=== PATIENT | female | born 1985 | race Caucasian/White ===

== ENCOUNTER 2018-01-22 20:28 | Inpatient (IN) | payer BC, SELFPAY ==
[2018-01-22] MEDS: NS 1,000 ML IV (21:34)
[2018-01-22] MEDS: ONDANSETRON 4MG/2ML VIAL (J2405) IV (21:34)
[2018-01-22 21:37] LABS: HEMATOCRIT 41.9 % (36.0-47.0); HEMOGLOBIN 14.7 g/dl (12.0-15.5); MEAN CORPUSCULAR HEMOGLOBIN 31.3 pg (27.0-33.0); MEAN CORPUSCULAR HGB CONC 35.1 g/dl (32.0-36.5); MEAN CORPUSCULAR VOLUME 89.1 fl (80.0-96.0); PLATELET COUNT, AUTOMATED 309 10^3/uL (150-450); RED CELL DISTRIBUTION WIDTH 11.9 % (11.5-14.5)
[2018-01-22 21:38] LABS: ADD MANUAL DIFFER YES; DIFF SLIDE NUMBER 356; POSITIVE DIFF POS FLAG; WHITE BLOOD COUNT 11.1 10^3/uL (4.0-10.0)
[2018-01-22 21:55] LABS: BANDS 1 % (< 11); BASOPHILS 1 % (0-4); EOSINOPHILS 3 % (0-5); LYMPHOCYTES 50 % (16-52); MONOCYTES 3 % (0-8); NEUTROPHILS 42 % (35-75); PLATELET ESTIMATE NORMAL (NORMAL)
[2018-01-22 22:05] LABS: ALBUMIN 3.8 GM/DL (3.2-5.2); ALBUMIN/GLOBULIN RATIO 1.23 (1.00-1.93); ALKALINE PHOSPHATASE 72 U/L (45-117); ALT/SGPT 42 U/L (12-78); ANION GAP 8 MEQ/L (8-16); AST/SGOT 33 U/L (7-37); BILIRUBIN,DIRECT < 0.1 MG/DL (0.0-0.2); BILIRUBIN,TOTAL 0.5 MG/DL (0.2-1.0); BLOOD UREA NITROGEN 15 MG/DL (7-18); CALCIUM LEVEL 8.8 MG/DL (8.5-10.1); CARBON DIOXIDE LEVEL 29 MEQ/L (21-32); CHLORIDE LEVEL 104 MEQ/L (98-107); CPK CREATINE PHOSPHOKINASE 87 U/L (26-192); GLOMERULAR FILTRATION RATE > 60.0 (>60); GLUCOSE, FASTING 96 MG/DL (70-100); LIPASE 250 U/L (73-393); POTASSIUM SERUM 4.7 MEQ/L (3.5-5.1); SODIUM LEVEL 141 MEQ/L (136-145); TOTAL PROTEIN 6.9 GM/DL (6.4-8.2); TROPONIN I < 0.02 NG/ML (< 0.10)
[2018-01-22 22:11] LABS: CK-MB VALUE MASS < 1.0 NG/ML (<3.6); HCG, SERUM QUANTITATIVE < 1.0 MIU/ML; MB/CK RELATIVE INDEX 1.14 (< OR =4)
[2018-01-22] MEDS: KETOROLAC 30 MG/ML VIAL (J1885) IV (23:32)
[2018-01-23] MEDS ORDERED: BISACODYL 10 MG SUPP PR (01:15)
[2018-01-23] MEDS ORDERED: ONDANSETRON 4MG/2ML VIAL (J2405) IV (01:15)
[2018-01-23] MEDS ORDERED: diphenhydrAMINE INJ 50MG/ML VIAL (J1200) IV (01:15)
[2018-01-23] MEDS ORDERED: IBUPROFEN 800 MG TAB PO (01:15)
[2018-01-23] MEDS ORDERED: METOCLOPRAMIDE INJ 10MG/2ML VIAL (J2765) IV (01:15)
[2018-01-23] MEDS: NS 1,000 ML IV ×2 (01:20→12:41)
[2018-01-23] MEDS: ACETAMINOPHEN TAB 650MG DOSE (2X325MG) PO (02:43)
[2018-01-23 08:24] LABS: HEMATOCRIT 38.6 % (36.0-47.0); HEMOGLOBIN 13.3 g/dl (12.0-15.5); MEAN CORPUSCULAR HEMOGLOBIN 30.6 pg (27.0-33.0); MEAN CORPUSCULAR HGB CONC 34.5 g/dl (32.0-36.5); MEAN CORPUSCULAR VOLUME 88.9 fl (80.0-96.0); PLATELET COUNT, AUTOMATED 281 10^3/uL (150-450); RED BLOOD COUNT 4.34 10^6/uL (4.00-5.40); RED CELL DISTRIBUTION WIDTH 11.9 % (11.5-14.5); WHITE BLOOD COUNT 7.6 10^3/uL (4.0-10.0)
[2018-01-23] MEDS: KETOROLAC 30 MG/ML VIAL (J1885) IV ×2 (08:39→15:29)
[2018-01-23 08:42] LABS: ANION GAP 7 MEQ/L (8-16); BLOOD UREA NITROGEN 14 MG/DL (7-18); CALCIUM LEVEL 8.4 MG/DL (8.5-10.1); CARBON DIOXIDE LEVEL 29 MEQ/L (21-32); CHLORIDE LEVEL 109 MEQ/L (98-107); CREATININE FOR GFR 0.77 MG/DL (0.55-1.30); GLOMERULAR FILTRATION RATE > 60.0 (>60); GLUCOSE, FASTING 84 MG/DL (70-100); POTASSIUM SERUM 4.5 MEQ/L (3.5-5.1); SODIUM LEVEL 145 MEQ/L (136-145)
[2018-01-23] MEDS: methylPREDNISolone INJ 40 MG/1 ML VIAL (J2920) IV (09:44)
[2018-01-23] MEDS: ENOXAPARIN 40 MG/0.4 ML SYRINGE (J1650) SC (09:44)
[2018-01-23] MEDS: DOXYCYCLINE HYCLATE 100 MG TAB PO (09:44)
[2018-01-23] MEDS: TOPIRAMATE (TopAMAX) 25 MG TAB PO ×2 (13:45→21:24)
[2018-01-23] MEDS: FIORICET TAB PO (15:30)
[2018-01-23] MEDS ORDERED: SUMAtriptan SUCCINATE 25 MG TAB PO (19:30)
[2018-01-23] MEDS ORDERED: TOPIRAMATE (TopAMAX) 25 MG TAB PO (21:00)
[2018-01-23] MEDS: raNITIdine SYRUP 150 MG/10 ML UDC PO (22:58)
[2018-01-24] MEDS: KETOROLAC 30 MG/ML VIAL (J1885) IV ×3 (00:17→16:46)
[2018-01-24] MEDS: NS 1,000 ML IV ×2 (02:42→16:46)
[2018-01-24 07:56] LABS: HEMATOCRIT 38.3 % (36.0-47.0); HEMOGLOBIN 13.2 g/dl (12.0-15.5); MEAN CORPUSCULAR HEMOGLOBIN 30.6 pg (27.0-33.0); MEAN CORPUSCULAR HGB CONC 34.5 g/dl (32.0-36.5); MEAN CORPUSCULAR VOLUME 88.9 fl (80.0-96.0); PLATELET COUNT, AUTOMATED 284 10^3/uL (150-450); RED BLOOD COUNT 4.31 10^6/uL (4.00-5.40); RED CELL DISTRIBUTION WIDTH 11.9 % (11.5-14.5); WHITE BLOOD COUNT 17.6 10^3/uL (4.0-10.0)
[2018-01-24 08:21] LABS: ANION GAP 8 MEQ/L (8-16); BLOOD UREA NITROGEN 10 MG/DL (7-18); CALCIUM LEVEL 8.2 MG/DL (8.5-10.1); CARBON DIOXIDE LEVEL 24 MEQ/L (21-32); CHLORIDE LEVEL 112 MEQ/L (98-107); CREATININE FOR GFR 0.73 MG/DL (0.55-1.30); GLOMERULAR FILTRATION RATE > 60.0 (>60); GLUCOSE, FASTING 101 MG/DL (70-100); POTASSIUM SERUM 3.8 MEQ/L (3.5-5.1); SODIUM LEVEL 144 MEQ/L (136-145)
[2018-01-24] MEDS: raNITIdine SYRUP 150 MG/10 ML UDC PO ×2 (08:26→21:41)
[2018-01-24] MEDS: TOPIRAMATE (TopAMAX) 25 MG TAB PO ×2 (08:27→21:42)
[2018-01-24] MEDS: methylPREDNISolone INJ 40 MG/1 ML VIAL (J2920) IV (08:28)
[2018-01-24] MEDS: ENOXAPARIN 40 MG/0.4 ML SYRINGE (J1650) SC (08:28)
[2018-01-24] MEDS: IPRATROPIUM 0.5MG/ALBUTEROL 2.5MG INH SOL UD 3ML (DUONEB)(J7620) NEB ×2 (09:07→21:05)
[2018-01-24] MEDS: FIORICET TAB PO (16:52)
[2018-01-25] MEDS: KETOROLAC 30 MG/ML VIAL (J1885) IV ×2 (00:28→08:16)
[2018-01-25] MEDS: NS 1,000 ML IV (05:37)
[2018-01-25 08:44] LABS: HEMATOCRIT 37.3 % (36.0-47.0); HEMOGLOBIN 12.7 g/dl (12.0-15.5); PLATELET COUNT, AUTOMATED 264 10^3/uL (150-450); RED CELL DISTRIBUTION WIDTH 12.3 % (11.5-14.5); WHITE BLOOD COUNT 14.9 10^3/uL (4.0-10.0)
[2018-01-25 09:09] LABS: ANION GAP 9 MEQ/L (8-16); BLOOD UREA NITROGEN 15 MG/DL (7-18); C REACTIVE PROTEIN QUANTITATIV < 0.30 MG/DL (0.00-0.30); CALCIUM LEVEL 8.2 MG/DL (8.5-10.1); CARBON DIOXIDE LEVEL 23 MEQ/L (21-32); CHLORIDE LEVEL 114 MEQ/L (98-107); CREATININE FOR GFR 0.71 MG/DL (0.55-1.30); GLOMERULAR FILTRATION RATE > 60.0 (>60); GLUCOSE, FASTING 70 MG/DL (70-100); POTASSIUM SERUM 3.8 MEQ/L (3.5-5.1); SODIUM LEVEL 146 MEQ/L (136-145)
[2018-01-25] MEDS: methylPREDNISolone INJ 40 MG/1 ML VIAL (J2920) IV (09:56)
[2018-01-25] MEDS: TOPIRAMATE (TopAMAX) 25 MG TAB PO (09:57)
[2018-01-25] MEDS: ENOXAPARIN 40 MG/0.4 ML SYRINGE (J1650) SC (09:57)
[2018-01-25] MEDS: raNITIdine SYRUP 150 MG/10 ML UDC PO (09:58)
[2018-01-25] MEDS: IPRATROPIUM 0.5MG/ALBUTEROL 2.5MG INH SOL UD 3ML (DUONEB)(J7620) NEB (11:49)
[2018-01-26 00:06] LABS: Lyme Disease IgG/IgM Antibodie <0.91 ISR (0.00-0.90); Lyme Disease IgM Ab Quantitati <0.80 index (0.00-0.79)
== END 2018-01-25 16:00 | disposition home or self-care (01) | DRG 111 ==
LOC: M ED INP 20:29 → M PED 01-23 01:53 → M ED 20:28
DX: H81.20 Vestibular neuronitis, unspecified ear (principal); R10.32 Left lower quadrant pain; G43.111 Migraine with aura, intractable, with status migrainosus; Z88.0 Allergy status to penicillin; Z88.2 Allergy status to sulfonamides; Z88.1 Allergy status to other antibiotic agents; Z88.8 Allergy status to other drugs, medicaments and biological substances

== ENCOUNTER → 2020-01-21 | Outpatient (REF) | payer OTHER, BC ==
[~2020-01-21] MED LIST: ACET65TA OR; ALLE25CA OR; AVEL1TAB2 OR; DOXY-350 PO; DOXY100C PO; EPIP0.3I IM; EPIP0.3I2 INJ; FISH1000 PO; IBUP1TAB7 PO; IBUPOTC PO; MIRE1IUD IU; MIREIUD IU; PRED10TA2 PO; PRED20TA OR; PROT1TAB2 OR; SUMA25TA3 PO; TOPA1TAB PO; VIST25CA OR; XANA0.5T OR
== END ==
LOC: M LAB REF 13:00
PROVIDERS: ATTEND Specialist
DX: Z12.4 Encounter for screening for malignant neoplasm of cervix (principal)

== ENCOUNTER → 2020-02-05 | Outpatient (CLI) | payer BC, OTHER ==
--- NOTE | 2020-02-05 08:08 | REPVR ---
PROCEDURE INFORMATION: Exam: CT Maxillofacial Without Contrast, Sinus Exam date and time: 02/05/2020 7:49 AM Age: 35 years old Clinical indication: Sinusitis; Type not specified; Additional info: Chronic maxillary sinusitis TECHNIQUE: Imaging protocol: CT Maxillofacial without contrast. Focus on the sinuses. Radiation optimization: All CT scans at this facility use at least one of these dose optimization techniques: automated exposure control; mA and/or kV adjustment per patient size (includes targeted exams where dose is matched to clinical indication); or iterative reconstruction. COMPARISON: No relevant prior studies available. FINDINGS: Frontal sinuses: Normal. No air-fluid levels. Ethmoid air cells: Normal. No air-fluid levels. Sphenoid sinuses: Normal. No air-fluid levels. Maxillary sinuses: Normal. No air-fluid levels. Ostiomeatal units are patent. Orbits: Orbits are normal. Globes are unremarkable. Nasal cavity/Septum: Unremarkable. Soft tissues: Unremarkable. Bones/joints: Unremarkable. IMPRESSION: Unremarkable sinuses. Electronically signed by: Benji Infante On 02/05/2020 08:08:06 AM
== END ==
LOC: M RAD 07:40
PROVIDERS: ATTEND Otolaryngology
DX: J32.0 Chronic maxillary sinusitis (principal)

== ENCOUNTER 2020-07-03 17:51 | Emergency (ER) | payer BC, OTHER ==
[~2020-07-03] VITALS: Ht 167.6 cm; Wt 89.9 kg
--- OUTSIDE RECORDS SUMMARY | 2020-07-03 17:59 | CCD ---
Author Author [facility] Organization [facility] Address Unknown Phone Unavailable Care Team Providers [facility] [place] [facility] Name Role Phone [facility] [place] Unavailable PROBLEMS Type Condition ICD9-CM Code MBR40-VO Code Onset Dates Condition S tatus SNOMED Code Notes Problem Unspecified sinusitis (chronic) 473.9 Active 37057715 Problem Tobacco use disorder 305.1 Active 373875383 Problem Shortness of breath 786.05 Active 521209055 Problem Cervicalgia 723.1 Active 57689844 Problem Pain in joint, lower leg 719.46 Active 0897478 03 Problem Esophageal reflux 530.81 Active 836106371 ALLERGIES Allergen (clinical drug ingredient) Drug/Non Drug Allergy do cumented on EMR Reaction Allergy Type Onset Date Status cefaclor Cefaclor(NDC Code:[address]-19) Hives Drug Allergy Active Shellfish Anaphylaxis Non Drug Allergy Active amoxicillin Amoxicillin(NDC Code:[address]-75) Hives Drug Aller gy Active IVP dye Anaphylaxis Non Drug Allergy Active Sulfa Hives Non Drug Allergy Active moxifloxacin Avelox Anaphylaxis Drug Allergy Active Penicillin (For Allergies Use Only) Hives Drug Allerg y Active erythromycin Erythromycin(NDC Code:[address]-00) Hives Drug All ergy Active ENCOUNTERS from 1983 to 2020-06-23 Encounter Location Date Provider Diagnosis [facility] [address] [place] [address] Jun, [facility] [place] Encounter for IUD re moval Z30.432 IMMUNIZATIONS Vaccine Route Administration Date Status Influenza (6mo & up) Fluzone Unknown Apr 05, 2012 Adm inistered SOCIAL HISTORY Tobacco Use: Social History Observation Description Date Details (start date - stop date) Never Smoker Sex Assigned At : Social History Observation Description Sex Assigned At Unknown Alcohol Screening: Question Answer Notes Did you have a drink containing alcohol in the past year? Ye s Points 2 Interpretation Negative How often did you have six or more drinks on one occas ion in the past year? Never (0 points) How many drinks did you have on a typica l day when you were drinking in the past year? 1 or 2 (0 points) How often did you have a drink containing alcohol in t he past year? Two to four times a month (2 points) Tobacco Use: Question Answer Notes Are you a: never smoker REASON FOR REFERRAL No Information VITAL SIGNS Weight 189 lbs Jun, Height 67 in Jun, BMI 29.6 kg/m2 Jun, Blood pressure systolic 130 mm Hg Jun, Blood pressure diastolic 80 mm Hg Jun, MEDICATIONS Medication SIG (Take, Route, Frequency, Duration) Notes Start Da te End Date Status Chantix Starting Month Milton 0.5 MG X 11 & 1 MG X 42 1 t ab(s) Orally as directed for 30 day(s) Dec, Not-Taking Solaraze 3 % 1 application to affected ar ea Externally Twice a day for 90 day(s) Jan, Not-Taking Astelin 137 MCG/SPRAY 1 puff in each nostril Nasally Twice a day for 10 day(s) Dec, Not-Taking Mirena (52 MG) 20 MCG/24HR as directed Intrauterine Active Knee Brace Dx 719.46 as directed na as needed for 30 day(s) Jan, Not-Taking Zantac 150 Maximum Strength 150 MG 1 tablet Orally Twice a day f or 30 day(s) Dec, Not-Taking Alive Once Daily Womens 50+ as directed Orally Active Protonix 40 MG 1 tablet Orally Once a day for 30 day(s) Jan, Active Ventolin HFA 90 MCG/ACT 2 puffs as needed Inhalation every 4 hrs for 30 day(s) Dec, Not-Taking Mirena 20 MCG/24HR as directed Intrauterine Not-Taking Tessalon Perles 100 mg 1 capsule as needed Orally T hree times a day for 15 day(s) Dec, Not-Taking Nasacort AQ 55 MCG/ACT 1 puff in each nostril Nasally Once a day for 30 day(s) Dec, Not-Taking EpiPen 2-Milton 0.3 MG/0.3ML as directed Injection Active Macrobid 100 MG 1 capsule Orally twice a day for 7 day(s) Jun, Active PROCEDURES No Information RESULTS No Results REASON FOR VISIT IUD REMOVAL ONLY MEDICAL (GENERAL) HISTORY Type Description Date Medical History Chronic sinusitis Medical History GERD x 3 yrs, taking protonix since 01/03 011 Medical History endometriosis Surgical History endometriosis (Laparascopy by Dr. Vazquez) 02/2010 Surgical History LEEP of cervix 2003 Hospitalization History anaphylaxis 07/31/2011 Goals Section No Information Health Concerns No Information MEDICAL EQUIPMENT No Information MENTAL STATUS No Information FUNCTIONAL STATUS No Information ASSESSMENTS Encounter Date Diagnosis Assessment Notes Treatment Notes Treatm ent Clinical Notes Jun, Encounter for IUD removal (ICD-10 - Z30.432) PLAN OF TREATMENT Medication Medication Name Sig Start Date Stop Date Macrobid 100 MG 1 capsule Orally twice a day for 7 day(s) Jun Insurance Providers Payer Name Payer Address Payer Phone Insured Name Patient Relati onship to Insured Coverage Start Date Coverage End Date [facility] [address] [facility] [id number] AISHA PAYNE
--- OUTSIDE RECORDS SUMMARY | 2020-07-03 17:59 | CCD ---
Author Author [facility] Organization [facility] Address Unknown Phone Unavailable Care Team Providers Care Registered Dental Assistant Name Role Phone Estrellita ELLISON Unavailable Unavailable Aravind MÉNDEZ Unavailable Unavailable MALLORIE ARAUJO MD Unavailable Unavailable MALLORIE ARAUJO MD Unavailable Unavailable MALLORIE ARAUJO MD Unavailable Unavailable MALLORIE ARAUJO MD Unavailable Unavailable MALLORIE ARAUJO MD Unavailable Unavailable MALLORIE ARAUJO MD Unavailable Unavailable MALLORIE ARAUJO MD Unavailable Unavailable VAN, MAQBOOL EDGAR MD Unavailable Unavailable VAN, MAQBOOL EDGAR MD Unavailable Unavailable VAN, MAQBOOL EDGAR MD Unavailable Unavailable VAN, MAQBOOL EDGAR MD Unavailable Unavailable VAN, MAQBOOL EDGAR MD Unavailable Unavailable VAN, MAQBOOL EDGAR MD Unavailable Unavailable VAN, MAQBOOL EDGAR MD Unavailable Unavailable VAN, MAQBOOL EDGAR MD Unavailable Unavailable VAN, MAQBOOL EDGAR MD Unavailable Unavailable VAN, MAQBOOL EDGAR MD Unavailable Unavailable VAN, MAQBOOL EDGAR MD Unavailable Unavailable VAN, MAQBOOL EDGAR MD Unavailable Unavailable VAN, MAQBOOL EDGAR MD Unavailable Unavailable VAN, MAQBOOL EDGAR MD Unavailable Unavailable VAN, MAQBOOL EDGAR MD Unavailable Unavailable VAN, MAQBOOL EDGAR MD Unavailable Unavailable VAN, MAQBOOL EDGAR MD Unavailable Unavailable VAN, MAQBOOL EDGAR MD Unavailable Unavailable VAN, MAQBOOL EDGAR MD Unavailable Unavailable VAN, MAQBOOL EDGAR MD Unavailable Unavailable VAN, MAQBOOL EDGAR MD Unavailable Unavailable VAN, MAQBOOL EDGAR MD Unavailable Unavailable VAN, MAQBOOL EDGAR MD Unavailable Unavailable VAN, MAQBOOL EDGAR MD Unavailable Unavailable VAN, MAQBOOL EDGAR MD Unavailable Unavailable VAN, MAQBOOL EDGAR MD Unavailable Unavailable VAN, MAQBOOL EDGAR MD Unavailable Unavailable VAN, MAQBOOL EDGAR MD Unavailable Unavailable VAN, MAQBOOL EDGAR MD Unavailable Unavailable VAN, MAQBOOL EDGAR MD Unavailable Unavailable VAN, MAQBOOL EDGAR MD Unavailable Unavailable VAN, MAQBOOL EDGAR MD Unavailable Unavailable VAN, MAQBOOL EDGAR MD Unavailable Unavailable VAN, MAQBOOL EDGAR MD Unavailable Unavailable VAN, MAQBOOL EDGAR MD Unavailable Unavailable VAN, MAQBOOL EDGAR MD Unavailable Unavailable VAN, MAQBOOL EDGAR MD Unavailable Unavailable VAN, MAQBOOL EDGAR MD Unavailable Unavailable VAN, MAQBOOL EDGAR MD Unavailable Unavailable VAN, MAQBOOL EDGAR MD Unavailable Unavailable VAN, MAQBOOL EDGAR MD Unavailable Unavailable VAN, MAQBOOL EDGAR MD Unavailable Unavailable VAN, MAQBOOL EDGAR MD Unavailable Unavailable VAN, MAQBOOL EDGAR MD Unavailable Unavailable VNA, MAQBOOL EDGAR MD Unavailable Unavailable VAN, MAQBOOL EDGAR MD Unavailable Unavailable VAN, MAQBOOL EDGAR MD Unavailable Unavailable VAN, MAQBOOL EDGAR MD Unavailable Unavailable VAN, MAQBOOL EDGAR MD Unavailable Unavailable VAN, MAQBOOL EDGAR MD Unavailable Unavailable VAN, MAQBOOL EDGAR MD Unavailable Unavailable VAN, MAQBOOL EDGAR MD Unavailable Unavailable VAN, MAQBOOL EDGAR MD Unavailable Unavailable VAN, MAQBOOL EDGAR MD Unavailable Unavailable VAN, MAQBOOL EDGAR MD Unavailable Unavailable VAN, MAQBOOL EDGAR MD Unavailable Unavailable VAN, MAQBOOL EDGAR MD Unavailable Unavailable VAN, MAQBOOL EDGAR MD Unavailable Unavailable VAN, MAQBOOL EDGAR MD Unavailable Unavailable VAN, MAQBOOL EDGAR MD Unavailable Unavailable VAN, MAQBOOL EDGAR MD Unavailable Unavailable VAN, MAQBOOL EDGAR MD Unavailable Unavailable VAN, MAQBOOL EDGAR MD Unavailable Unavailable VAN, MAQBOOL EDGAR MD Unavailable Unavailable VAN, MAQBOOL EDGAR MD Unavailable Unavailable VAN, MAQBOOL EDGAR MD Unavailable Unavailable VAN, MAQBOOL EDGAR MD Unavailable Unavailable VAN, MAQBOOL EDGAR MD Unavailable Unavailable CARTER AVILA MD Unavailable Unavailable CARTER AVILA MD Unavailable Unavailable CARTER AVILA MD Unavailable Unavailable CARTER AVILA MD Unavailable Unavailable CARTER AVILA MD Unavailable Unavailable CARTER AVILA MD Unavailable Unavailable CARTER AVILA MD Unavailable Unavailable CARTER AVILA MD Unavailable Unavailable CARTER AVILA MD Unavailable Unavailable CARTER AVILA MD Unavailable Unavailable Shruti Padilla PA-C Unavailable Unavailable Shruti Padilla PA-C Unavailable Unavailable Padilla, Shruti Hayde PA-C Unavailable Unavailable Padilla, Shruti Hayde PA-C Unavailable Unavailable Padilla, Shruti Hayde PA-C Unavailable Unavailable Padilla, Shruti Hayde PA-C Unavailable Unavailable Padilla, Shruti Hayde PA-C Unavailable Unavailable Padilla, Shruti Hayde PA-C Unavailable Unavailable Padilla, Shruti Hayde PA-C Unavailable Unavailable Padilla, Shruti Hayde PA-C Unavailable Unavailable Padilla, Shruti Hayde PA-C Unavailable Unavailable Padilla, Shruti Hayde PA-C Unavailable Unavailable Padilla, Shruti Hayde PA-C Unavailable Unavailable Padilla, Shruti Hayde PA-C Unavailable Unavailable Padilla, Shruti Hayde PA-C Unavailable Unavailable Padilla, Shruti Hayde PA-C Unavailable Unavailable Padilla, Shruti Hayde PA-C Unavailable Unavailable Padilla, Shruti Hayde PA-C Unavailable Unavailable Padilla, Shruti Hayde PA-C Unavailable Unavailable Padilla, Shruti Hayde PA-C Unavailable Unavailable Padilla, Shruti Hayde PA-C Unavailable Unavailable Padilla, Shruti Hayde PA-C Unavailable Unavailable Padilla, Shruti Hayde PA-C Unavailable Unavailable TO MÉNDEZ Unavailable Unavailable VAN, MAQBOOL EDGAR MD Unavailable Unavailable VAN, MAQBOOL EDGAR MD Unavailable Unavailable VAN, MAQBOOL EDGAR MD Unavailable Unavailable VAN, MAQBOOL EDGAR MD Unavailable Unavailable VAN, MAQBOOL EDGAR MD Unavailable Unavailable VAN, MAQBOOL EDGAR MD Unavailable Unavailable VAN, MAQBOOL EDGAR MD Unavailable Unavailable VAN, MAQBOOL EDGAR MD Unavailable Unavailable VAN, MAQBOOL EDGAR MD Unavailable Unavailable VAN, MAQBOOL EDGAR MD Unavailable Unavailable VAN, MAQBOOL EDGAR MD Unavailable Unavailable VAN, MAQBOOL EDGAR MD Unavailable Unavailable VAN, MAQBOOL EDGAR MD Unavailable Unavailable VAN, MAQBOOL EDGAR MD Unavailable Unavailable VAN, MAQBOOL EDGAR MD Unavailable Unavailable VAN, MAQBOOL EDGAR MD Unavailable Unavailable VAN, MAQBOOL EDGAR MD Unavailable Unavailable VAN, MAQBOOL EDGAR MD Unavailable Unavailable VAN, MAQBOOL EDGAR MD Unavailable Unavailable VAN, MAQBOOL EDGAR MD Unavailable Unavailable VAN, MAQBOOL EDGAR MD Unavailable Unavailable VAN, MAQBOOL EDGAR MD Unavailable Unavailable VAN, MAQBOOL EDGAR MD Unavailable Unavailable VAN, MAQBOOL EDGAR MD Unavailable Unavailable VAN, MAQBOOL EDGAR MD Unavailable Unavailable VAN, MAQBOOL EDGAR MD Unavailable Unavailable VAN, MAQBOOL EDGAR MD Unavailable Unavailable VAN, MAQBOOL EDGAR MD Unavailable Unavailable VAN, MAQBOOL EDGAR MD Unavailable Unavailable VAN, MAQBOOL EDGAR MD Unavailable Unavailable VAN, MAQBOOL EDGAR MD Unavailable Unavailable VAN, MAQBOOL EDGAR MD Unavailable Unavailable VAN, MAQBOOL EDGAR MD Unavailable Unavailable VAN, MAQBOOL EDGAR MD Unavailable Unavailable VAN, MAQBOOL EDGAR MD Unavailable Unavailable VAN, MAQBOOL EDGAR MD Unavailable Unavailable VAN, MAQBOOL EDGAR MD Unavailable Unavailable VAN, MAQBOOL EDGAR MD Unavailable Unavailable VAN, MAQBOOL EDGAR MD Unavailable Unavailable VAN, MAQBOOL EDGAR MD Unavailable Unavailable VAN, MAQBOOL EDGAR MD Unavailable Unavailable VAN, MAQBOOL EDGAR MD Unavailable Unavailable VAN, MAQBOOL EDGAR MD Unavailable Unavailable VAN, MAQBOOL EDGAR MD Unavailable Unavailable VAN, MAQBOOL EDGAR MD Unavailable Unavailable VAN, MAQBOOL EGDAR MD Unavailable Unavailable VAN, MAQBOOL EDGAR MD Unavailable Unavailable VAN, MAQBOOL EDGAR MD Unavailable Unavailable VAN, MAQBOOL EDGAR MD Unavailable Unavailable VAN, MAQBOOL EDGAR MD Unavailable Unavailable VAN, MAQBOOL EDGAR MD Unavailable Unavailable VAN, MAQBOOL EDGAR MD Unavailable Unavailable VAN, MAQBOOL EDGAR MD Unavailable Unavailable VAN, MAQBOOL EDGAR MD Unavailable Unavailable VAN, MAQBOOL EDGAR MD Unavailable Unavailable VAN, MAQBOOL EDGAR MD Unavailable Unavailable VAN, MAQBOOL EDGAR MD Unavailable Unavailable VAN, MAQBOOL EDGAR MD Unavailable Unavailable VAN, MAQBOOL EDGAR MD Unavailable Unavailable VAN, MAQBOOL EDGAR MD Unavailable Unavailable VAN, MAQBOOL EDGAR MD Unavailable Unavailable VAN, MAQBOOL EDGAR MD Unavailable Unavailable VAN, MAQBOOL EDGAR MD Unavailable Unavailable VAN, MAQBOOL EDGAR MD Unavailable Unavailable VAN, MAQBOOL EDGAR MD Unavailable Unavailable VAN, MAQBOOL EDGAR MD Unavailable Unavailable VAN, MAQBOOL EDGAR MD Unavailable Unavailable VAN, MAQBOOL EDGRA MD Unavailable Unavailable VAN, MAQBOOL EDGAR MD Unavailable Unavailable VAN, MAQBOOL EDGAR MD Unavailable Unavailable VAN, MAQBOOL EDGAR MD Unavailable Unavailable VAN, MAQBOOL EDGAR MD Unavailable Unavailable VAN, MAQBOOL EDGAR MD Unavailable Unavailable VAN, MAQBOOL EDGAR MD Unavailable Unavailable VAN, MAQBOOL EDGAR MD Unavailable Unavailable MANTA, N JENNIFER MD Unavailable Unavailable MANTA, N JENNIFER MD Unavailable Unavailable MANTA, N JENNIFER MD Unavailable Unavailable MANTA, N JENNIFER MD Unavailable Unavailable MANTA, N JENNIFER MD Unavailable Unavailable MANTA, N JENNIFER MD Unavailable Unavailable MANTA, N JENNIFER MD Unavailable Unavailable MANTA, N JENNIFER MD Unavailable Unavailable MANTA, N JENNIFER MD Unavailable Unavailable MANTA, N JENNIFER MD Unavailable Unavailable MANTA, N JENNIFER MD Unavailable Unavailable MANTA, N JENNIFER MD Unavailable Unavailable MANTA, N JENNIFER MD Unavailable Unavailable MANTA, N JENNIFER MD Unavailable Unavailable MANTA, N JENNIFER MD Unavailable Unavailable MANTA, N JENNIFER MD Unavailable Unavailable MANTA, N JENNIFER MD Unavailable Unavailable MANTA, N JENNIFER MD Unavailable Unavailable MANTA, N JENNIFER MD Unavailable Unavailable MANTA, N JENNIFER MD Unavailable Unavailable MANTA, N JENNIFER MD Unavailable Unavailable MANTA, N JENNIFER MD Unavailable Unavailable MANTA, N JENNIFER MD Unavailable Unavailable MANTA, N JENNIFER MD Unavailable Unavailable MANTA, N JENNIFER MD Unavailable Unavailable MANTA, N JENNIFER MD Unavailable Unavailable MANTA, N JENNIFER MD Unavailable Unavailable MANTA, N JENNIFER MD Unavailable Unavailable MANTA, N JENNIFER MD Unavailable Unavailable MANTA, N JENNIFER MD Unavailable Unavailable MANTA, N JENNIFER MD Unavailable Unavailable MANTA, N JENNIFER MD Unavailable Unavailable MANTA, N JENNIFER MD Unavailable Unavailable MANTA, N JENNIFER MD Unavailable Unavailable MANTA, N JENNIFER MD Unavailable Unavailable MANTA, N JENNIFER MD Unavailable Unavailable MANTA, N JENNIFER MD Unavailable Unavailable MANTA, N JENNIFER MD Unavailable Unavailable MANTA, N JENNIFER MD Unavailable Unavailable MANTA, N JENNIFER MD Unavailable Unavailable MANTA, N JENNIFER MD Unavailable Unavailable MANTA, N JENNIFER MD Unavailable Unavailable Cook, Zoraida Jessica PA Unavailable Unavailable Cook, Zoraida Jessica PA Unavailable Unavailable Cook, Zoraida Jessica PA Unavailable Unavailable Cook, Zoraida Jessica PA Unavailable Unavailable Cook, Zoraida Jessica PA Unavailable Unavailable Cook, Zoraida Jessica PA Unavailable Unavailable Coko, Zoraida Jessica PA Unavailable Unavailable Cook, Zoraida Jessica PA Unavailable Unavailable Cook, Zoraida Jessica PA Unavailable Unavailable Cook, Zoraida Jessica PA Unavailable Unavailable Re-disclosure Warning The records that you are about to access may contain information from federally-assisted alcohol or drug abuse programs. If such information is present, then the following federally mandated warning applies: This information has been disclosed to you from records protected by federal confidentiality rules (42 CFR part 2). The federal rules prohibit you from making any further disclosure of this information unless further disclosure is expressly permitted by the written consent of the person to whom it pertains or as otherwise permitted by 42 CFR part 2. A general authorization for the release of medical or other information is NOT sufficient for this purpose. The Federal rules restrict any use of the information to criminally investigate or prosecute any alcohol or drug abuse patient.The records that you are about to access may contain highly sensitive health information, the redisclosure of which is protected by Article 27-F of the [facility] Public Health law. If you continue you may have access to information: Regarding HIV / AIDS; Provided by facilities licensed or operated by the [facility] Office of Mental Health; or Provided by the [facility] Office for People With Developmental Disabilities. If such information is present, then the following [facility] mandated warning applies: This information has been disclosed to you from confidential records which are protected by state law. State law prohibits you from making any further disclosure of this information without the specific written consent of the person to whom it pertains, or as otherwise permitted by law. Any unauthorized further disclosure in violation of state law may result in a fine or halfway sentence or both. A general authorization for the release of medical or other information is NOT sufficient authorization for further disc losure. Allergies and Adverse Reactions Type Description Substance Reaction Status Data Source(s ) [facility]OX AV[facility] Drug allergy AMOXICILLIN AMOXICILLIN [facility] Drug allergy ERYTHROMYCIN ERYTHROMYCIN [facility] CLASS PCN (penicillin) PCN (penicillin) Ca [facility] Drug allergy Amoxicillin Amoxicillin Hives Active eCW1 ([facility]) Drug allergy Cefaclor Cefaclor Hives Active eCW1 ([facility]) Avelox Avelox 250 ML moxifloxacin 1.6 MG/ML Injection [ Avelox] Anaphylaxis Active eCW1 ([facility]) Erythromycin Erythromycin Erythromycin 500 MG Delayed Rele ase Oral Tablet Hives Active eCW1 ([facility]) Sulfa Sulfa Sulfa Hives [facility] IVP dye IVP dye IVP dye Anaphylaxis Active eCW1 ([facility]) Shellfish Shellfish Shellfish Anaphylaxis Active eCW1 ([facility]) Drug allergy Avelox 400 MG Oral Tablet Avelox 400MG Oral Tablet lexii phylaxix Active STEPH ([facility]) Allergy to substance Active iodine [facility]aphylaxis [facility] Family History Family Member Name Family Member Gender Family Member Status Date o f Status Description Data Source(s) Unknown Unknown Problem MEDENT ([facility] [employer]) Unknown Unknown Problem MEDENT ([facility]) Encounters Encounter Providers Location Date Indications Data Source(s ) Outpatient Attender: TO MÉNDEZReferrer: EDGAR Blankenship MD [id number] 06/30/2020 12:00:00 AM EST Obstructive sleep apnea (adult) (pediatric) [facility] Obstructive sleep apnea (adult) (pediatr ic) Unknown [id number] [facility] [address] [facility] [address] 06/18/2020 12:00:00 AM EST eCW1 ([facility]) (WC PROC) [facility] [id number] 06/14/2020 12:00:00 AM EST eCW1 ([facility]) Outpatient Attender: TO Blountultant: EDGAR WILKINSON MD 06/09/2020 03:38:00 PM EST - 06/09/2020 04:38:00 PM EST [facility] Outpatient Attender: TO Mcdowellender: JENNIFER Nazario MD [id number] 06/08/2020 12:00:00 AM [facility] Outpatient Attender: Jessica romero 05/18/2020 05:35:00 PM EST MEDENT ([facility]) Outpatient 12/23/2019 12:00:00 AM [facility] Outpatient 09/04/2019 12:00:00 AM [facility] [address] [place] [address] 08/14/2019 12:00:00 AM EDT eC ([facility]) Outpatient<td ID="encounterTypeDescripti onID0">urgent visit</td><td>Hayde Padilla RPA</td><td>[facility]</td><td>07/23/2019</td><td><content ID="encounterDiagnosisID0-0">Sinusitis Acute</content></td> Attender: Hayde Padilla PA-C [facility] 07/23/2019 12:50:00 PM EST - 07/23/2019 01:51:00 PM EST Sinusitis Acute STEPH ([facility]) Sinusitis Acute [facility] [address] [place] [address] 07/03/2019 12:00:00 AM EST eCW1 ([facility]) Outpatient Attender: JENNIFER LICEA MD [id number] 2019 12:00:00 AM EST - 06/24/2019 10:01:41 AM [facility] Outpatient Attender: CARMEN ELLISONReferrer: ANDRAE WHITNEY MD 05/15/2019 12:00:00 AM EST Insomnia, unspecified [facility] Insomnia, unspecified Medications Medication Brand Name Start Date Product Form Dose Route Admi nistrative Instructions Pharmacy Instructions Status Indications Reaction Description Data Source(s) NITROFURANTOIN, MACROCRYSTALS 25 MG / Ni trofurantoin, Monohydrate 75 MG Oral Capsule [Macrobid] Macrobid 100 MG Macrobid 100 MG 06/18/2020 12:00:00 AM EST 1.0 {capsule} active Macrobid 100 MG eC W1 ([facility]) NITROFURANTOIN, MACROCRYSTALS 25 MG / Ni trofurantoin, Monohydrate 75 MG Oral Capsule [Macrobid] Macrobid 100 MG Macrobid 100 MG 06/18/2020 12:00:00 AM EST 1.0 {capsule} active Macrobid 100 MG eC W1 ([facility]) Levofloxacin 750 MG Oral Tablet levoFLOXacin 750 MG Or al Tablet (Levaquin) levoFLOXacin 750 MG Oral Tablet (Levaquin) 06/08/2020 12:00:00 AM EST 750 mg Oral active Personal history of covid-19CoughWhe ezingShortness of breath Take 1 tablet by mouth daily for 5 days [facility] Personal history of covid-19 Cough Wheezing Shortness of breath Misc. Devices (DURABLE MEDICAL EQUIPMENT SEE SIG) XX MISC 97 [id number] 06/08/2020 12:00:00 AM EST active MERCEDES o n CPAP Use as directed. Please provider her with current mask in size small instead of medium. Please obtain compliance data download at 14 days Dg: MERCEDES. [facility] MERCEDES on CPAP Prednisone 20 MG Oral Tablet predniSONE 20 MG Oral Tab let (DELTASONE) predniSONE 20 MG Oral Tablet (DELTASONE) 06/08/2020 12:00:00 AM EST Oral active Personal history of covid-19CoughWheezingShortness of breath Take 2 tablets by mouth daily for 4 days, THEN 1 tablet daily for 4 days, THEN 0.5 tablets daily for 4 days.. [facility] Personal history of covid-19 Cough Wheezing Shortness of breath Albuterol Sulfate HFA 108 (90 Base) MCG/ ACT Inhalation Aerosol Solution (PROVENTIL HFA) 3498-5733-29 06/08/2020 12:00:00 AM EST 2 {puff} Inha lation active Shortness of breath Inhale 2 puf fs into the lungs every 4 (four) hours as needed for Wheezing or Shortness of Breath [facility] Shortness of breath Albuterol Sulfate HFA 108 (90 Base) MCG/ ACT Inhalation Aerosol Solution (PROVENTIL HFA) 6779-0362-46 08/28/2019 12:00:00 AM EDT active SHAKE WELL AND INHALE 1 PUFF Q 4 TO 6 H PRN [facility] Azithromycin 250 MG Oral Tablet Azithromycin 250 MG Oral Tab let 07/23/2019 12:00:00 AM EST active Azithrom ycin 250 MG Oral Tablet [place] ([facility]) Mis. Devices (DURABLE MEDICAL EQUIPMENT SEE SIG) XX [facility] 97 [id number] 06/24/2019 12:00:00 AM EST active Use as directed. Auto-titrating CPAP 5-15 cmH2O via best fitting mask, tubing, filters and all related supplies. Dg: MERCEDES. [facility] Insurance Providers Payer name Policy type / Coverage type Policy ID Covered constitution party ID Covered constitution party's relationship to howard Policy Howard Plan Information [facility] [id number] SP [id number] BCBS EMPIRE [place] DIV [id number] SP [id number] EMPIRE PLAN [facility] [id number] Self [id number] EMPIRE [facility] BLUE SHIELD -O/P [id number] 18 [id number] [facility] [id number] SP [id number] BCBS EMPIRE SHIR[place] DIV [id number] SP [id number] BCBS EMPIRE [place]IR[place] DIV [id number] SP [id number] [place] PPO 302/[id number] SP [id number] [facility] Other 0 Self 0 [place] Plan F [id number] [id number] BS iFACETS Medigap Part B [id number] Self V [id number] BS iFACETS Medigap Part B [id number] Self Y [id number] [facility] [place] Plan Health Maintenance Organization (HMO) [id number] Self [id number] BS iFACETS Medigap Part B [id number] Self V [id number] BS iFACETS Medigap Part B [id number] Self Y [id number] [facility] Health Maintenance Organization (O) [id number] Self [id number] BLUE CROSS BLUE SHIELD -O/P [id number] 18 [id number] EXCELLUS BCBS B [id number] P [id number] [place] PPO 302/[id number] SP [id number] SELF PAY ONLY UNAVAILABLE UNAV AILABLE [place] PPO 302/307 [id number] SP [id number] EXCELLUS BCBS B [id number] S VYS [id number] EXCELLUS H [id number] Self [id number] BLUE CROSS BLUE SHIELD-CLINIC [id number] Problems, Conditions, and Diagnoses Code Display Name Description Problem Type Effective Dates Data Source(s) Z99.89 Dependence on other enabling machines an d devices Dependence on other enabling machines and devices Diagnosis 06/30/2020 08:01:20 AM [facility] G47.33 Obstructive sleep apnea (adult) (pediatr ic) Obstructive sleep apnea (adult) (pediatric) Diagnosis 06/30/2020 08:01:20 AM [facility] R0602 Shortness of breath Shortness of breath Diagnosis 0 06/09/2020 03:38:00 PM [facility] G47.30 Sleep apnea, unspecified Sleep apnea, unspecified Diag nosis 05/15/2019 02:53:49 PM [facility] G47.00 Insomnia, unspecified Insomnia, unspecified Diagnosis 05/15/2019 02:53:49 PM [facility] Surgeries/Procedures Procedure Description Date Indications Data Source(s) Office Visit, New Pt., Level 3 FC 08/14/2019 12:00:00 AM EDT eCW1 ([facility]) Results ID Date Data Source [id number] 07/01/2020 09:48:36 AM [facility] Name Value Range Interpretation Code Description Data Martha rce(s) Supporting Document(s) Progress Note [facility] BZSDWa5iGpCBGnSh89/POTeiRBNas1MjQKxoQIl4TKyoYQBrW1XkPLS5cW7wEZM9BFnOBcBxEuJdPIW6 lbm [file] ICAgICAgICAgICAgICAgICAgICAgICAgICAgICAgIC AgICAgICAgICAgICAgICAgICAgICAgICAgICAgICANCiAgICAgICAgICAgICAgICAgICAgICAgICAgIC AgICAgICAgICAgICAgICAgICAgICAgICAgICAgICAgICAgICAgICAgICAgICAgICAgICAgICAgICAgIC AgICAgICAgICAgICANCiAgICAgICAgICAgICAgICAg ICAgICAgICAgICAgICAgICAgICAgICAgICAgICAgICAgICAgICAgICAgICAgICAgICAgICAgICAgICAg ICAgICAgICAgICAgICAgICAgICAgICANCiAgICAgICAgICAgICAgICAgICAgICAgICAgICAgICAgICAg ICAgICAgICAgICAgICAgICAgICAgICAgICAgICAgIC AgICAgICAgICAgICAgICAgICAgICAgICAgICAgICAgICANCiAgICAgICAgICAgICAgICAgICAgICAgIC AgICAgICAgICAgICAgICAgICAgICAgICAgICAgICAgICAgICAgICAgICAgICAgICAgICAgICAgICAgIC AgICAgICAgICAgICAgICANCiAgICAgICAgICAgICAg ICAgICAgICAgICAgICAgICAgICAgICAgICAgICAgICAgICAgICAgICAgICAgICAgICAgICAgICAgICAg ICAgICAgICAgICAgICAgICAgICAgICAgICANCiAgICAgICAgICAgICAgICAgICAgICAgICAgICAgICAg ICAgICAgICAgICAgICAgICAgICAgICAgICAgICAgIC AgICAgICAgICAgICAgICAgICAgICAgICAgICAgICAgICAgICANCiAgICAgICAgICAgICAgICAgICAgIC AgICAgICAgICAgICAgICAgICAgICAgICAgICAgICAgICAgICAgICAgICAgICAgICAgICAgICAgICAgIC AgICAgICAgICAgICAgICAgICANCiAgICAgICAgICAg ICAgICAgICAgICAgICAgICAgICAgICAgICAgICAgICAgICAgICAgICAgICAgICAgICAgICAgICAgICAg ICAgICAgICAgICAgICAgICAgICAgICAgICAgICANCiAgICAgICAgICAgICAgICAgICAgICAgICAgICAg ICAgICAgICAgICAgICAgICAgICAgICAgICAgICAgIC AgICAgICAgICAgICAgICAgICAgICAgICAgICAgICAgICAgICAgICANCjw/tJFwR5bvqDNdjeB5S0fxJh 4MMi5BMI8vf4WiSAHhSYolfkJjItlUEfDxKGCgIgyNDzn6LWurGO1JgLJhD3YzS4GkGHcrGD1SPFVoSK DykLGpAWLpPPQiYoW1NGSoXYdzWO0QbCNsPXeyUWSr MFVuWaGbKUWhJNCoXDZbGOOsTVUSNY2NNuVtM6CdmO44WPNOEq6+HDsssrPgDdbAWoF4CXLdf2DlPRi0 AF1TOUCoZsjzq4TyIrmjFFBALKjqFP0STRP9MPE3IRPyJz0VBCXbM493klYjLW0QLl4VScPgIC1izb3V XyfdNTLpDkcGMsq6SWvuLP2AiBVhWRvTrw0eidZnws MAs5PhlxOjkAIHgU5tJAUfhPXMBCZibxVzIJ7kGUHFTSPjiUWpKbC8LcFsOaRjZKF3MgMhDK9vBDczKX 3DFBK9YIywVJEsDNEfZ4fZUzCzXTCxZsTchEjlTI7LLyHjZ9UjzhKttUUlJYTjERMGVh5+DQplbmRvYm fCZjZrRUDjm6AkKXh1GP9GHJMqYGeiZN1XDWPrzS2q BEobSG9JIfGhToWxWCBDSfWsH98qdMEgLUb0W1JhXrMgFITbMumyDRZyULivGdGyGGNtXeVoENjsJM4+ ID4+PNmsGC1OXObmbsFkRGReQm4NXXLmSLSuPF1iUYAiLOQwD9M0sYxuZPELShEeP2olomjpZK5fOBNp O601sBmaaqEdBJT4GCFoGh8GTEBhNLN0PAQuzSPeUv etOGOSRYamVE5CcKOzZOP0fQ9mEXkeTCPgQNXvY9kDXwNjvYntED97qPracfPvsALcEAu+Ek5OEA8jn3 EuRFy5xnBwMLyjJKAjMJivGHDtWJGdZKFkQEM5ADB7VZPRZuZjVULbUQAjSNnnYFMjJYGykx9ODIQtSF AzMDMxNSAwMDAwMCBuDQowMDAwMDMyMDUwIDAwMDAw JK5BVqEzKVUxFVLxQQtfWVRtRJWlnh2XEUAiNFHmQNG7QGNxCOQfGQMwKUjvLIMmJFZ4QxagCHVxBQOv RH5TVoBvTBVaSIp4RVFsDYUiQDZokq5HCTVxXJFlEalvIlTpFNTzZIYkGUwvLCRePPCtJMLsBWAsUCVm GY6RAdKlSSWrFQMmBsynADHdRTWhyi5ITPQkGNMgGu odQeQgXRPhUSAxKJhnMPCfOCSfXVTdHKTvOOByWW6SDnUhWQTvZUB1ILBoKPJmZSBhgu8USXKmWUIpXA A5ILKjDWTgCPSyBEykKQUlEPW3VwsjZANjOHGhMC2RJnIzGQBiDBDoZeRsXTPsRBBsni0IZOGcDERnTa SxKhGjGOTkIIDfAXlxSBEoJPQ8ZuEcFLYrYBXiKB2W JtAoAKGlJjjaZTUfRIThBCCnpk3JFIPfWOSpLMY1TpRhCQGfCDKaBDlzXPVwQOM0HKo4XGSlJKJhGR0Y HcGfPDYyZji9PjYfMSEkNQVxse1DYEGmAPZzRYm5APXuRZTeUEKlVYwjSNQtDWA8QYF7ODSeQFUtDL0T HwZzUAXkDuSiJQNzIDRsNXLbmd4HIIRdXHEdQFN9Rv PuNQDoRXUlSJmkLZIeOBKkTvBwGILzJVDpAY6WPiWeBYZuSkUtDgtxSQDoEARlux9GIJQbJIRhSiJyWX KxYPKfZYCjVLgxLRZtIHTsNqrdFDVoYCMnBA7PYhElELgeHGMRSna2UJidR7v1PMEzTI2GH4Lme4GgFd KfVIVHRFouPV2taqFaNNNyYi8ND6yZVrqlV0M3Dtm6 PWYhZUTbQEU5VBkoQnXmCzY9AdIsAok1VO0oGREbRUCdDLzjYZBxNOFuDmZ8D5Q2MxLrRvn5CtWpDSju KrFwCJ3GBz7AGfX7NHY2sYNfXt1XQvD3HtKVLvRvGI9PGWm= ID Date Data Source [id number] 06/11/2020 06:05:46 PM [facility] Hospital Name Value Range Interpretation Code Description Data Martha rce(s) Supporting Document(s) Progress Note [facility] EVGZQi7mMqFHXrLu38/MBAgdNMYrb8OlFQzsPKa8CGijJKZtJ5LvRAE5wS1nQSK7CDcKQqHnKoUnMXE1 lbm [file] ICAgICAgICAgICAgICAgICAgICAgICAgICAgICAgICAgICAgICAgICAgICAgICAgICAgICAgICAgICAg ICAgICAgICAgICAgICAgDQogICAgICAgICAgICAgIC AgICAgICAgICAgICAgICAgICAgICAgICAgICAgICAgICAgICAgICAgICAgICAgICAgICAgICAgICAgIC AgICAgICAgICAgICAgICAgICAgICAgICAgDQogICAgICAgICAgICAgICAgICAgICAgICAgICAgICAgIC AgICAgICAgICAgICAgICAgICAgICAgICAgICAgICAg ICAgICAgICAgICAgICAgICAgICAgICAgICAgICAgICAgICAgDQogICAgICAgICAgICAgICAgICAgICAg ICAgICAgICAgICAgICAgICAgICAgICAgICAgICAgICAgICAgICAgICAgICAgICAgICAgICAgICAgICAg ICAgICAgICAgICAgICAgICAgDQogICAgICAgICAgIC AgICAgICAgICAgICAgICAgICAgICAgICAgICAgICAgICAgICAgICAgICAgICAgICAgICAgICAgICAgIC AgICAgICAgICAgICAgICAgICAgICAgICAgICAgDQogICAgICAgICAgICAgICAgICAgICAgICAgICAgIC AgICAgICAgICAgICAgICAgICAgICAgICAgICAgICAg ICAgICAgICAgICAgICAgICAgICAgICAgICAgICAgICAgICAgICAgDQogICAgICAgICAgICAgICAgICAg ICAgICAgICAgICAgICAgICAgICAgICAgICAgICAgICAgICAgICAgICAgICAgICAgICAgICAgICAgICAg ICAgICAgICAgICAgICAgICAgICAgDQogICAgICAgIC AgICAgICAgICAgICAgICAgICAgICAgICAgICAgICAgICAgICAgICAgICAgICAgICAgICAgICAgICAgIC AgICAgICAgICAgICAgICAgICAgICAgICAgICAgICAgDQogICAgICAgICAgICAgICAgICAgICAgICAgIC AgICAgICAgICAgICAgICAgICAgICAgICAgICAgICAg ICAgICAgICAgICAgICAgICAgICAgICAgICAgICAgICAgICAgICAgICAgDQogICAgICAgICAgICAgICAg ICAgICAgICAgICAgICAgICAgICAgICAgICAgICAgICAgICAgICAgICAgICAgICAgICAgICAgICAgICAg TDPjRAVsAUCtMKCaLXKjXVPqQNVuFCJcGSf8Q1bbWX CeKJUiES0uODd1Vc7+OJoVNbBoWVX7fjJehJ4ETS4tv5ArWQiaAEIxq3MkIFp6QA5IULAdXUctUV4WTL trus8BXLIxJZUpsGBBn9bcQnOfYLE1OMHxZldjQO7UQUNpS7zgsaWzPAWfQUJZRKerIAMARGskNLEBIY AeXKXqNlBjMeChMUXcDS2YFEUgW770rrHkFR2OOu8M DeDmTD3icz3YEpExKHCnXtgWLlp7EEcnAN8PiHTgjFMnEIPnHKPOFdJqY5cys1UnElKzNFAEAZxoUH3Z o2FdgTEnEHx+Km2ENV5dl5WgHLycNUNrQB3sex4LKLmVOiSfF4ArcRbsHVWsi5xdKRHcXL7sgCHdGFW5 ZRxizUVfyff3LUPgG1ThWFMsufhxKN0PIPM4UNDyLH 9vUWQcLKEzDfSvMDRQNU7KBFYsHHRrzMQuEZGwMGSBHX5CWZmgYUD9OUAqyfSsvUZpHBhwHI5JKTIvsk QgMzAgMCBSDQo+Yf4JCO0dw1OdLEhfZvQdCH7npo1ZZXjZXvWgA2A5nHGiS5V8TTosVn9ZPKGiNIUwRm toVNJLZMiqQX2BQR1pvfI1PW3OuINlIVJbLPMwzCBm FAn7P43ccMYwGYeiNE6JIAT+Zari+Ol9IKOGeHIZlBRNaZrBzKWKGSmOxZ9YjX3AOm2NyU9DcSQ15oRix yeNfHKiuNP0IWN1tUYZgBXKZBV4VzCBylQ7jluWjWDOrGYLERoWoV20tyZYnXKRvHOP4RRMkCy7FPQWz N0UidhFszFvrmvRrHQImSLQLOV7JSHgjatPycFErsZ qxEX98pIfzNF8GCg1ZTzKgFV8kgc8DdKSiOh5APFFqIc7XCXYhMAGiGCQrKZJ5DQQwEvOgLIenJEIwUR RrDSA6EYBdMROfSN6ZYwQhRAMpQcYcYLpySPRuZBZfct6NWOLzOYTrNONcAMVoNDOcRPPkKUgqLOMrPJ TmGZT4XOLsUQYwGF1KSlPzWWVpKWTmYDAyEMLvAEGn vm7EWCTwRVHwOUFyPGXiRUHwRRRfIBlzJRZcSUF0HcA8NHFwRBSbJW8ARyWlHOVuVFr2QwdbTWEbAWFp wl6ADHAmFNDaRYBnDjFyCJYgPZDzOVqoNUFiPAPvJGV4IDRlOJBjZH4FWwTvLBNbDHY1UbXuRNJqPWYk eg9SBRHsGOPvUtf7SMVuVIPlGYYxRLzjRDDwQXL6ZX AcSMHkKLXeOH5DOzAlYUYyYKZrSRIcKCXuPEHkrn9SBFBnZAFfLfq8AtKrOLZjTFCfAWsyAOIjPHU8QC SfPYYtQIMxDA2SUcQcCJUpAXisYXGuQDTkKYShsa5HXKXiALXnTICaUDMuVKPcRWDjOBcsGJReBXA9QY Y0BOOlLZQsPB9ZRsMpJWLzACy1YEYcHBObPLStmf7L FUUaQQIbWCJkBUXxSXHwSLToDPozBDTtCJSpMWMyBWGgARFsIA9MCtBaDGWzIhO5CCltSKNjNRNcjt9N PZDeYXUcUHqzYFAqCLFtGCZaQQgbGDEyFKHdKWS8FWJiFUTgHQ1ZYuWdZSWvEqW7ICxsIRMpXPZqyf3Z UBEkPEOkDjP2GOVsNEOxCPDuGFdcCJPaDHEySkA6CW HxSYVqTG1PVxXaETWmZtN2GQYpOFLfLOGroe6ETIJySOAyQKY7DBNqCGAzAFEaWJnnBULwYXL4OvR2EC JnUZJxPK7HNeOfDNUgIbQ9SkHjDJMjBGRtpu3RdYNhnXazdw9CINeQAd5QbMevBSWuROfdWj4stVVpJn SjTUIDIz1NdaUqPFUiVGWFIBlcJUBpEAckEyT7RBR0 JLQeOSEjGKLrJlE3VGKrJuRnSHA4VlHxKyK2KHReSHGzAwbyMhD2AAT5PkQrWsRaSYJhI8K5ERBbJpM+ KC5pRMb+Mb3Id5HujaW8wdLoXRtsWPtxJz1RHBQGN1UASw== ID Date Data Source [id number] 06/11/2020 11:04:00 AM EST [facility] [address] [place] [address] PHONE: [phone] FAX: [phone] Name .................. : JOSUÉ Faustin Acct Number.................. : [id number] ROOM. ................. : Number ................... : [id number] Stay type ............. : O/P Discharge Date......... ... : 06/09/20 Admit Date ......... : 06/09/20 Admit Phys .................... : DEV Best Date of ....... : 1985 Family Phys ................... : VAN TIMOTEO Phone .................. : [phone] Age ................................ : 35 Film# .................. .:[id number] Sex ................................. : F Unsigned transcriptions are preliminary reports and do not represent a medical or legal document CHEST 2 VIEWS [id number] COMPLETE:06/09/20 16:12 LIBRA 1601 (REASON FOR CHEST: sob, cough, chest tightness CHEST X-RAY: 2-VIEWS CLINICAL HISTORY: Shortness of breath, chest tightness and cough. FINDINGS: The cardiac and mediastinal silhouettes appear normal and the lungs are clear. The bones and soft tissues are normal. The upper abdomen is unremarkable. IMPRESSION: No acute disease identifiable. Electronically Reviewed and Signed By Usman Fischer MD , 06/11/20 11:04, MRA Transcribe Initials: CLYDE , Transcribe Date: 06/09/20 21:24, Dictation Date: Copy for: DEV TO Copy for: VAN HERNÁNDEZ via modem Copy for: Hugo [facility] REC Page 1 of 1 Name Value Range Interpretation Code Description Data Martha rce(s) Supporting Document(s) ID Date Data Source [id number] 05/18/2020 12:00:00 AM EST [facility] Name Value Range Interpretation Code Description Data Martha rce(s) Supporting Document(s) SARS-CoV2 Rapid Antigen [facility] This lab was reported by Seth wolff. ID Date Data Source [id number] 06/26/2019 02:28:33 PM [facility] Name Value Range Interpretation Code Description Data Martha rce(s) Supporting Document(s) Progress Note [facility] JNBHGi6aCvOHMnMg11/AUJvvOBAqq4CoWIubQEh3ABimGEOxD5RnQFW1lB1dPKW0XQxRDnVuQlGnYAEs m [file] XHB6WT5PFOCIO6QPBy== ID Date Data Source [id number] 06/24/2019 09:18:06 AM EST [facility] Name Value Range Interpretation Code Description Data Martha rce(s) Supporting Document(s) Progress Note [facility] TIETMy5fCdEXNkYf11/USZlaUXHde4CiLVcmLDu0VTlhMKOkR3IwNJH2pH8rZYX6ZUaVDvKiIcQiJGRa lbm TsWcfNKpGdSCFyAcfSXcEgUKfaXoxmcVBbUS2AsWP6KIOsP59oIYRbQJPaJ9VnTTA5LTQ+Sh1RNOOghV PtPU9VPigI5Kmsu5oOOu9pnV9aiNKQR6lTnOzVkqXMWHqqMQR7zknMpf/uZp79dKvbaTeX/H2NybSdP3 VVr25iXRIVfdLWWZ8122bfk1PilyZl/12ry9iNVWXg n+4yyTiZLsmf/0P6haM34enPewG6fjZXEshQ1xIqt1/5tzNBAxVGxRCUrNw7KUmhhmOUdpIbv/YqL9er 8vAi0PG1FrcPFEGsdk94o45PpHUS4e/ffUcm/yWnE/Jua7+HzyA7yy/qnbJRLZwfXa14adOxKq5PBj5Z q47wAaz+KGUBGIT30c9AouSb4fWlXh7zC3AxQjKOcW +wuXXAU/p2O7kpPhn9ZOZHypiu23qBkqZFI5ikMg+Z3ebwkk+sGkQ16vjtEMb3F5uCldwDD0b/qlYGcU ymhZZNR4vrUbeBvDcySCor0ugAIGSEcn9BH9NjhPyWcJYMp5HGDhONaageMs5YRexLS5+Nj0uIMlvcA8 IesQwdXsYaXozLUxQljqxPZrOqWCNOUQNvuOJRkqTk lPy4qq/yJXm/ymforgxv/5EJXT0dzwXbzWxozYe5XishLSj7g97rYfg/iQ0x4bcy3Ciyq2tD0zk4/gu6 wT626pxdbNaA5DgeSmQLwACpuSzlpaNXWsyzzKm04EPcnYvNCCd0xQ4i7W59Sk1Cq7UE5a5CJbFkCpSa O7QRYuKP6lT37WiyV97LdzJfHANOP3Fa0ix8KgsiPb FqvwlHrjtFM7MLv/VvU3YPIHlSv26pysGrszm5Vbiof0DbeB+ThZDKBTvizf+GK5Qq48jSlWhfcOu1lb aQ1uJrUcQKE6BP5kLTL24T8Ql1cin3UaZuFcneIQhw2rnljJAV2pQQGdFyNmfE/P4B6+3JcS6nAdlHzc 977LnrVFuaCpEl1RU/U2cIBua8WvmHgUebf/LbviU0 vZAqMN2/cIQCh6QDTQ4Hqp7Le1Mtd3uf5PDZ2kWT4FKmBdfyH5Urd4vPpO3IvisIApTNSssRfnea+Radha [file] NsnZayJKPRLlEaXNL9JYrhCWGHLq3T ID Date Data Source [id number] 06/24/2019 09:17:20 AM EST [facility] Name Value Range Interpretation Code Description Data Martha rce(s) Supporting Document(s) Progress Note [facility] BNXCIj5rJsRARsPq74/ZMPkbOAFys4NaHVczHYi7TEdwADJaA6NjFUF3tX4xPFW0UVbKQzYhHgStSADu lbm [file] tPKl3I+5Bwq9+h0RrlTK4T/Maria Isabel+cbpg0kwWUIzlqw7 [file] N4AuA2FXGkXZJ1XaI5HOdePLP9IVa0GzBiDY7TXq8CGaE2XXM9xTJbZr2DVLm3SOIGVtIlYE6PYDd= Procedure Social History Code Duration Value Status Description Data Source(s ) Smoking 06/11/2020 12:00:00 AM EST Never Smoker completed Never S moker eCW1 ([facility]) Smoking 06/11/2020 12:00:00 AM EST Never Smoker completed Never S moker eCW1 (Former[facility]) Smoking 07/23/2019 02:09:13 PM EST Ex-smoker (finding) complet ed Ex-smoker (finding) STEPH ([facility]) Alcohol intake 06/26/2019 12:00:00 AM EST Current drinker of al cohol (finding) completed Current drinker of alcohol (finding) [facility] Tobacco use and exposure 06/26/2019 12:00:00 AM EST Never used co mpleted Never used [facility] Smoking 06/26/2019 12:00:00 AM EST Former smoker completed Former smoker [facility] Smoking 06/26/2019 12:00:00 AM EST Former smoker completed Former smoker [facility] Vital Signs ID Date Data Source UNK Name Value Range Interpretation Code Description Data Source(s) Diastolic blood pressure 80 mm[Hg] 80 mm[Hg] eCW1 ([facility]) Systolic blood pressure 130 mm[Hg] 130 mm[Hg] e CW1 ([facility]) Body mass index (BMI) [Ratio] 29.6 kg/m2 29.6 k g/m2 eCW1 ([facility]) Body height 67 [in_i] 67 [in_i] eCW1 ([facility]) Body weight 189 [lb_av] 189 [lb_av] eCW1 ([facility]) Body mass index (BMI) [Ratio] 27.8 kg/m2 27.8 k g/m2 MEDENT ([facility], [facility]) Body height 66 [in_i] 66 [in_i] MEDENT ([facility], [facility]) 5'6" Body weight 172.00 [lb_av] 172.00 [lb_av] MEDEN T ([facility], [facility]) Body temperature 98.9 [degF] 98.9 [degF] MEDENT ([facility], [facility]) Oxygen saturation in Arterial blood by Pulse oximetry 96 % 96 % MEDENT ([facility], [facility]) Respiratory rate 14 /min 14 /min MEDENT ( [facility], [facility]) Heart rate 94 /min 94 /min MEDENT ([facility], [facility]) Diastolic blood pressure 102 mm[Hg] 102 mm[Hg] MEDENT ([facility], [facility]) Systolic blood pressure 132 mm[Hg] 132 mm[Hg] M EDENT ([facility], [facility]) Diastolic blood pressure 70 mm[Hg] 70 mm[Hg] eCW1 ([facility]) Systolic blood pressure 118 mm[Hg] 118 mm[Hg] e CW1 ([facility]) Body mass index (BMI) [Ratio] 30.63 kg/m2 30.63 kg/m2 W1 ([facility]) Body height 67 [in_us] 67 [in_us] eCW1 ([facility]) Body weight Measured 195.6 [lb_av] 195.6 [lb_av ] eCW1 ([facility]) Oxygen saturation in Arterial blood by Pulse oximetry 98 % 98 % STEPH ([facility]) Body temperature 98.5 [degF] 98.5 [degF] GREENW AY ([facility]) Respiratory rate 18 /min 18 /min STEPH ([facility]) Heart rate rhythm 1 1 GREENWA Y ([facility]) Heart rate 88 /min 88 /min [place] ([facility]) Diastolic blood pressure 88 mm[Hg] 88 mm[Hg] STEPH ([facility]) Systolic blood pressure 130 mm[Hg] 130 mm[Hg] G REENWAY ([facility]) Patient Treatment Plan of Care Planned Activity Planned Date Details Description Data Source (s) NITROFURANTOIN, MACROCRYSTALS 25 MG / Ni trofurantoin, Monohydrate 75 MG Oral Capsule [Macrobid] 06/18/2020 12:00:00 AM EST eC W1 ([facility]) NITROFURANTOIN, MACROCRYSTALS 25 MG / Ni trofurantoin, Monohydrate 75 MG Oral Capsule [Macrobid] 06/18/2020 12:00:00 AM EST eC W1 ([facility]) Prednisone 20 MG Oral Tablet [facility]08[facility]2020 [facility] SEE SIG[facility] XX M [facility] 06/08/2020 12:00:00 AM [facility] ospital Levofloxacin 750 MG Oral Tablet 06/08/2020 12:00:00 AM [facility] Albuterol Sulfate HFA 108 (90 Base) MCG/ ACT Inhalation Aerosol Solution (PROVENTIL HFA) 06/08/2020 12:00:00 AM EST [facility] Albuterol Sulfate HFA 108 (90 Base) MCG/ ACT Inhalation Aerosol Solution (PROVENTIL HFA) 08/28/2019 12:00:00 AM EDT [facility] Azithromycin 250 MG Oral Tablet 07/23/2019 12:00:00 AM EST [place] ([facility]) Misc. Devices (DURABLE MEDICAL EQUIPMENT SEE SIG) XX M [facility] 06/24/2019 12:00:00 AM [facility] H ospital
--- OUTSIDE RECORDS SUMMARY | 2020-07-03 17:59 | CCD | Continuity of Care Document ---
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 Role Phone [employer] AUTM [phone] Problems Description No Information Available Social History Type Date Description Comments Sex Unknown ETOH Use Occasionally consumes alcohol Tobacco Use Start: Unknown End: Unknown Patient is a former smoker Tobacco Use Start: Unknown The Patient Has Never Vaped Smoking Status Reviewed: 05/18/20 The Patient Has Never Vaped Allergies, Adverse Reactions, Alerts Active Allergies Reaction Severity Comments Date Penicillin Contact dermatitis 7 Avelox Anaphylaxis 03/29/2017 Erythromycin Contact dermatitis 7 Bactrim Contact dermatitis swollen throat 017 Cefaclor Contact dermatitis 7 Radioactive Iodine 0 Shellfish-Derived Products 1 07/19/2019 Amoxicillin 05/18/2020 Medications Active Medications SIG Qnty Indications Ordering Provide r Date Mirena (52 MG) 20mcg/24HR IUD Unknown Medrol 4mg TBPK one dose pack as directed for 6 days Unknown Immunizations Description No Information Available Vital Signs Date Vital Result Comment 05/18/2020 7:25pm BP Systolic 132 mmHg BP Diastolic 102 mmHg Heart Rate 94 /min Respiratory Rate 14 /min O2 % BldC Oximetry 96 % Body Temperature 98.9 F Weight 172.00 lb Height 66 inches 5'6" BMI (Body Mass Index) 27.8 kg/m2 Pain Level 5 03/29/2017 10:27am BP Systolic 155 mmHg BP Diastolic 100 mmHg Heart Rate 92 /min O2 % BldC Oximetry 99 % Body Temperature 99.9 F Weight 153.00 lb Height 66 inches 5'6" BMI (Body Mass Index) 24.7 kg/m2 Pain Level 5 Results Description No Information Available Procedures Description No Information Available Medical Devices Description No Information Available Encounters Type Date Location Provider Dx Diagnosis Office Visit 05/18/2020 6:35p Main Office ASHLEY Landry U07.1 Covid-19 Z20.828 Contact w and exposure to ot h viral communicable diseases Assessments Date Code Description Provider 05/18/2020 U07.1 Covid-19 ASHLEY Landry 05/18/2020 Z20.828 Contact with and (jordan spected) exposure to other viral communicable diseases ASHLEY Landry Plan of Treatment 05/18/2020 - ASHLEY Landry* U07.1 Covid-19* Comments:* 14 day quarantine, expect public health to contact them about contact tracing. hand washing, social distancing. * Z20.828 Contact with and (suspected) exposure to other viral communicable diseases* Comments:* POC rapid COVID POSITIVE today , neg flu a and b * All * Comments:* supportive care: vit c, rest, fluids, OTC analgesics or cold meds if helpful. RTC or seek other medical attention if worsening or not baseline health/fully well in 1 week or so Functional Status Description No Information Available Mental Status Description No Information Available Referrals Description No Information Available
--- OUTSIDE RECORDS SUMMARY | 2020-07-03 17:59 | CCD ---
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 Role Phone [place] [place] Unavailable PROBLEMS Type Condition ICD9-CM Code IEU22-GS Code Onset Dates Condition S tatus SNOMED Code Notes Problem Unspecified sinusitis (chronic) 473.9 Active 18221027 Problem Tobacco use disorder 305.1 Active 159384777 Problem Shortness of breath 786.05 Active 011639181 Problem Cervicalgia 723.1 Active 67342262 Problem Pain in joint, lower leg 719.46 Active 8785063 03 Problem Esophageal reflux 530.81 Active 575863490 ALLERGIES Allergen (clinical drug ingredient) Drug/Non Drug Allergy do cumented on EMR Reaction Allergy Type Onset Date Status cefaclor Cefaclor(NDC Code:[address]-43) Hives Drug Allergy Active Shellfish Anaphylaxis Non Drug Allergy Active amoxicillin Amoxicillin(NDC Code:[address]-53) Hives Drug Aller gy Active IVP dye Anaphylaxis Non Drug Allergy Active Sulfa Hives Non Drug Allergy Active moxifloxacin Avelox Anaphylaxis Drug Allergy Active Penicillin (For Allergies Use Only) Hives Drug Allerg y Active erythromycin Erythromycin(NDC Code:[address]-50) Hives Drug All ergy Active ENCOUNTERS from 1983 to 2020-06-19 Encounter Location Date Provider Diagnosis [facility] [address] [place] [address] Jun, [facility] [place] IMMUNIZATIONS Vaccine Route Administration Date Status Influenza [...] REASON FOR REFERRAL No Information VITAL SIGNS No information MEDICATIONS Medication SIG (Take, Route, Frequency, Duration) [...] Information RESULTS No Results REASON FOR VISIT UTI MEDICAL (GENERAL) HISTORY Type Description Date Medical History Chronic sinusitis Medical History GERD x 3 yrs, taking protonix since 01/03 011 Medical History endometriosis Surgical History endometriosis (Laparascopy by Dr. Vazquez) 02/2010 Surgical History LEEP of cervix 2003 Hospitalization History anaphylaxis 07/31/2011 Goals Section No Information Health Concerns No Information MEDICAL EQUIPMENT No Information MENTAL STATUS No Information FUNCTIONAL STATUS No Information ASSESSMENTS No Information PLAN OF TREATMENT Medication Medication Name Sig Start Date Stop Date Macrobid 100 MG 1 capsule Orally twice a day for 7 day(s) Jun Insurance Providers Payer Name Payer Address Payer Phone Insured Name Patient Relati onship to Insured Coverage Start Date Coverage End Date [facility] [address] [facility] [id number] AISHA PAYNE self
--- OUTSIDE RECORDS SUMMARY | 2020-07-03 17:59 | CCD | Summary of Care ---
Author Author [facility] Address Unknown Phone Unavailable Care Team Providers Care Line Operator Name Role Phone William Boateng MD PCP Reason for Visit * Reason Comments Shortness of Breath Wheezing Cough Sleep Apnea Follow-up Encounter Details Care Team Description Date Type Department Gifty Miles NP [address] [facility] 2nd Floor [address] [place] [id number] MERCEDES on CPAP (Primary Dx); Shortness of breath; Wheezing; Cough; Personal history of covid-19; History of 2019 novel coronavirus disease (COVID-19); Restrictive lung disease secondary to obesity 06/08/2020 Telemedicine [facility] [address] [facility] 2nd Floor, [address] [place] [id number] Allergies Comments Active Allergy Reactions Severity Noted Date Amoxicillin 11/12/2014 Moxifloxacin 11/12/2014 Cefaclor 11/12/2014 Iodinated Diagnostic 04/08/2019 Agents Erythromycin 11/12/2014 Penicillins 11/12/2014 Sulfa Antibiotics 11/12/2014 documented as of this encounter (statuses as of 06/11/2020) Medications End Date Status Medication Sig Dispensed Refills Start Date Active pantoprazole (PROTONIX) Take 40 mg by 0 40 MG tablet mouth daily. Active Levonorgestrel 20 1 each by 0 MCG/24HR Intrauterine Intrauterine Intrauterine Device route once (MIRENA) Active Misc. Devices (DURABLE Use as 1 each 0 MEDICAL EQUIPMENT SEE directed. 0 SIG) XX MISC Auto-titratin g CPAP 5-15 cmH2O via best fitting mask, tubing, filters and all related supplies. Dg: MERCEDES. Active Albuterol Sulfate HFA 108 SHAKE WELL 0 /2 (90 Base) MCG/ACT AND INHALE 1 0 Inhalation Aerosol PUFF Q 4 TO 6 Solution (PROVENTIL HFA) H PRN 06/07/2021 Active Albuterol Sulfate HFA 108 Inhale 2 1 each 11 (90 Base) MCG/ACT puffs into 1 Inhalation Aerosol the lungs Solution (PROVENTIL every 4 HFA)Indications: (four) hours Shortness of breath as needed for Wheezing or Shortness of Breath 06/13/2020 Active levoFLOXacin 750 MG Oral Take 1 tablet 5 tablet 0 Tablet by mouth 1 (Levaquin)Indications: daily for 5 Shortness of breath, days Wheezing, Cough, Personal history of covid-19 Active Misc. Devices (DURABLE Use as 1 each 0 MEDICAL EQUIPMENT SEE directed. 1 SIG) XX MISCIndications: Please MERCEDES on CPAP provider her with current mask in size small instead of medium. Please obtain compliance data download at 14 days Dg: MERCEDES. 06/20/2020 Active predniSONE 20 MG Oral Take 2 14 tablet 0 Tablet tablets by 1 (DELTASONE)Indications: mouth daily Shortness of breath, for 4 days, Wheezing, Cough, Personal THEN 1 tablet history of covid-19 daily for 4 days, THEN 0.5 tablets daily for 4 days.. documented as of this encounter (statuses as of 06/11/2020) Active Problems Patient Care Coordination Note Ben in [place] for CPAP Problem Noted Date MERCEDES (obstructive sleep apnea) 06/26/2019 Restrictive lung disease secondary to obesity 2018 Obesity (BMI 30.0-34.9) 04/09/2019 GERD (gastroesophageal reflux disease) 04/09/2019 documented as of this encounter (statuses as of 06/11/2020) Social History Date Tobacco Use Types Packs/Day Years Used Quit: 06/08/2012 Former Smoker Cigarettes 0 Smokeless Tobacco: Never Used Comments: smoked x 15 yrs Drinks/Week oz/Week Comments Alcohol Use Yes Sex Assigned at Date Recorded Not on file documented as of this encounter Last Filed Vital Signs Not on filedocumented in this encounter Progress Notes * Gifty Miles NP - 06/08/2020 10:20 AM EST Subjective: This is a tele-medical visit. The patient was informed of the risks including se curity breach, technological failure, inability to perform a comprehensive physi adis exam which could delay or prevent an accurate diagnosis, and potential compl ications from treatment decisions rendered over a telemedical platform. The jaleel ent understands and consented to the use of tele-health services. The service was provided by means of an audio/video telecommunication. Time spent on this evaluation today: 34 minutes Patient ID: Nelida Payne is a 35 y.o. female. HPI Chief Complaint Patient presents with Shortness of Breath Wheezing Cough Sleep Apnea Follow-up Nelida Payne is here for a followup on her sleep study, however she also wa nted to talk about her prolonged respiratory symptoms following her COVID-19 inf ection. She was previously seen by Dr. Stack and then Dr. Wilson for MERCEDES, her SARAH 06/24. She had a home sleep test that showed a respiratory event index of 9.3. At her SARAH she was ordered AutoCPAP. She reports that she is tolerating this we ll and feels more rested throughout the day with the CPAP. Her only complaint is that she currently uses medium nasal pillows and she often times rolls over and the air escapes into her eyes. She believes this is because of the nasal pillows being too big and she would like to try a smaller size. Her compliance report below shows adequate therapy on AutoCPAP with usage on 93% of nights for an aver age of 5 hours and 51 minutes and a residual AHI of 0.9/hr. She reports a recent COVID 19 diagnosis on May 18 with symptom onset star ting May 13. She has completed her quarantine on June 04 however she is still having symptoms. She complains of SOB on exertion, chest tightness, dry cough, and wheezing. She can go up one flight of stairs before becoming SOB. She was ordered a Zpack and two courses of steroids by her PCP. She finished her z- pack Sunday, which did help with her initial symptoms of fever and chills. She does report that the prednisone helped. She has also tried Mucinex DM at the sug gestion of her PCP. At onset of COVID diagnosis she reported her oxygen dropping to 85%. Currently her oxygen saturation is 92% with activity and 95% at rest. S he does have a history of restrictive lung disease related to obesity. Her most recent PFTs where done 04/08/2019 and showed effort was adequate.Spirometry is wi thin normal limits.Following bronchodilators there is no significant improvement . Lung volumes are normal.Diffusion capacity is within normal limits. Patient denies chest pain, sputum production, orthopnea, paroxysmal nocturnal dy spnea, palpitation, syncope, postnasal drainage, nasal congestion, acid reflux, weight loss, loss of appetite, dysuria, nausea, vomiting, abdominal pain, rash, headache, and focal weakness. Compliance Report: Compliance report covering the dates 04/26/2020 to 05/25/2020. Patient prescribed AutoPAP with a pressure range of 5cm to 15cm. Maximum pressure 9.4cm. Median pressure 6.1cm. 95th percentile pressure 8.4cm. Usage days / or 93%. Of the 28 days used, patient used therapy >4 hrs a night for 22 days or 73%. Patient used therapy <4 hrs a night 20% of the time. Average time used 5 hours and 51 minutes. Average AHI with therapy is 0.9 and leak rate was 9.9 95% of the time while jaleel ent was using therapy. Past Medical History: Diagnosis Date GERD (gastroesophageal reflux disease) LPRD (laryngopharyngeal reflux disease) MERCEDES (obstructive sleep apnea) 06/26/2019 Past Surgical History: Procedure Laterality Date LAPAROSCOPY LEEP Allergies Allergen Reactions Amoxicillin Avelox [Moxifloxacin] Ceclor [Cefaclor] Contrast Dye [Iodinated Diagnostic Agents] Erythromycin Penicillins Sulfa Antibiotics Current Outpatient Medications Medication Sig Dispense Refill Albuterol Sulfate HFA 108 (90 Base) MCG/ACT Inhalation Aerosol Solution ( PROVENTIL HFA) SHAKE WELL AND INHALE 1 PUFF Q 4 TO 6 H PRN Albuterol Sulfate HFA 108 (90 Base) MCG/ACT Inhalation Aerosol Solution ( PROVENTIL HFA) Inhale 2 puffs into the lungs every 4 (four) hours as needed for Wheezing or Shortness of Breath 1 each 11 levoFLOXacin 750 MG Oral Tablet (Levaquin) Take 1 tablet by mouth daily for 5 days 5 tablet 0 Levonorgestrel 20 MCG/24HR Intrauterine Intrauterine Device (MIRENA) 1 ea ch by Intrauterine route once Misc. Devices (DURABLE MEDICAL EQUIPMENT SEE SIG) XX MISC Use as directed . Auto-titrating CPAP 5-15 cmH2O via best fitting mask, tubing, filters and all related supplies. Dg: MERCEDES. 1 each 0 Misc. Devices (DURABLE MEDICAL EQUIPMENT SEE SIG) XX MISC Use as directed . Please provider her with current mask in size small instead of medium. Please obtain compliance data download at 14 days Dg: MERCEDES. 1 each 0 pantoprazole (PROTONIX) 40 MG tablet Take 40 mg by mouth daily. predniSONE 20 MG Oral Tablet (DELTASONE) Take 2 tablets by mouth daily fo r 4 days, THEN 1 tablet daily for 4 days, THEN 0.5 tablets daily for 4 days.. 14 tablet 0 No current facility-administered medications for this visit. No family history on file. 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 Review of Systems Constitutional: Positive for fatigue and fever. Negative for chills and unexpect ed weight change. HENT: Negative for congestion, postnasal drip, rhinorrhea, sinus pressure, sinus pain, sore throat and trouble swallowing. Eyes: Negative for photophobia, pain and redness. Respiratory: Positive for cough, shortness of breath and wheezing. Negative for apnea and stridor. Cardiovascular: Negative for chest pain, palpitations and leg swelling. Gastrointestinal: Negative for abdominal distention, constipation, diarrhea, jareth sea and vomiting. Endocrine: Negative for cold intolerance and heat intolerance. Genitourinary: Negative for dysuria, frequency and urgency. Musculoskeletal: Negative for myalgias. Skin: Negative for color change, pallor, rash and wound. Neurological: Negative for dizziness, weakness, light-headedness and headaches. Psychiatric/Behavioral: Negative for sleep disturbance. The patient is not nervo us/anxious and is not hyperactive. Objective: There were no vitals taken for this visit. This was a telemedicine visit with au caryn capabilities only. Physical Exam Unable to complete physical exam as this was a telemedicine visit with audio cap abilities only. [place] Sleepiness Scale 04/08/2019 06/24/2019 Sitting and reading 1 2 Watching TV 2 1 Sitting, inactive in a public place (e.g. a theatre or a meeting) 1 0 As a passenger in a car for an hour without a break 0 3 Lying down to rest in the afternoon when circumstances permit 3 2 Sitting and talking to someone 0 0 Sitting quietly after a lunch without alcohol 1 0 In a car, while stopped for a few minutes in traffic 0 0 Total score 8 8 Assesment & Plan: MERCEDES: Mild MERCEDES. Adequate therapy on AutoCPAP with usage on 93% of nights for an a verage of 5 hours and 51 minutes and a residual AHI of 0.9/hr. Will order smalle r nasal pillow mask per her request. Can continue CPAP on current settins. COVID-19 Pneumonitis vs URI: She has a history of COVID-19 infection diagnosed o n May 18 with symptom onset starting May 13, quarantine end 2020. She continues to have SOB with exertion, dry cough, chest heaviness, and wheezing. She has tried azithromycin and prednisone in the past with mild i mprovement. I will order a chest x ray to confirm covid pneumonitis if present. In the mean time I will order a longer taper of oral steroids and levaquin due t o her many abx allergies. She has taken Levaquin in the past without difficultie s. I have also asked her to continue using her albuterol inhaler for SOB and whe ezing. I counseled her on signs and symptoms that would require her to go to the ER and she agrees to do so if these occur. She requested to have her Xray done at [facility], I have placed this order STAT and will call her with the r walter once available. Follow up with me in 2 weeks, sooner if needed. documented in this encounter Plan of Treatment Order Schedule Name Type Priority Associated Diag noses Expected: 06/08/2020, Expires: 3 XR Chest Frontal and Imaging STAT Shortness of breath Lateral Health Maintenance Due Date Last Done Comments MMR Vaccines (02/01/1984 Standard series) Varicella Vaccines (02/01/1984 2 - 2-dose childhood series) DTaP,Tdap,and Td Vaccines 1990 (1 - Tdap) HIV Screening 02/01/1996 Cervical Cancer Screening 02/01/2004 5 years Influenza Vaccine 03/04/2020 Pneumococcal Vaccine: 65+ 02/01/2048 Years (1 of 1 - PPSV23) HIB Vaccines Aged Out No longer eligible based on patient's age to complete this topic Hepatitis A Vaccines Aged Out No longer eligibl e based on patient's age to complete this topic Hepatitis B Vaccines Aged Out No longer eligibl e based on patient's age to complete this topic IPV Vaccines Aged Out No longer eligible based on patient's age to complete this topic Pneumococcal Vaccine: Aged Out No longer eligib le based on patient's age to Pediatrics (0 to 5 Years) complete this topic and At-Risk Patients (6 to 64 Years) documented as of this encounter Results Not on filedocumented in this encounter Visit Diagnoses Diagnosis MERCEDES on CPAP - Primary Obstructive sleep apnea (adult) (pediat parag) Shortness of breath Wheezing Cough Personal history of covid-19 History of 2018 novel coronavirus disea se (COVID-19) Restrictive lung disease secondary to o besity Other diseases of lung, not elsewhere c lassified documented in this encounter
--- OUTSIDE RECORDS SUMMARY | 2020-07-03 17:59 | CCD | Continuity of Care Document ---
Author Author Nelida RAMOS A Organization Unknown Address [address] [place] [id number] Phone [phone] Care Team Providers Care Maintenance And Utilities Supervisor Name Role Phone [employer] [phone] Problems Description No Information Available Social History [...] Medical Devices Description No Information Available Encounters Description No Information Available Assessments Description No Information Available Plan of Treatment No Information Available Functional Status Description No Information Available Mental Status Description No Information Available Referrals Description No Information Available
[2020-07-03] MEDS ORDERED: PANT40TA29 (18:04)
[2020-07-03] MEDS ORDERED: ACETAMINOPHEN 325 MG TAB PO ONE (18:30)
[2020-07-03] MEDS ORDERED: ONDANSETRON 4 MG ORAL DISINTEGRATING TAB PO ONE (18:30)
--- OUTSIDE RECORDS SUMMARY | 2020-07-03 19:08 | CCD ---
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 If you continue you may have access to information: Regarding HIV / AIDS; Provided by facilities licensed or operated by the [facility] Office of Mental Health; or Provided by the [facility] Office for People With Developmental Disabilities. If such information is present, then the following [facility] mandated warning applies: This information has been [...] Reaction Status Data Source(s ) BRANDNAME CECLOR [facility] BRANDNAME AVELOX AVELOX [facility] Drug allergy AMOXICILLIN AMOXICILLIN [facility] Drug allergy ERYTHROMYCIN ERYTHROMYCIN [facility] CLASS PCN (penicillin) PCN (penicillin) [facility] Drug allergy Amoxicillin Amoxicillin Hives Active eCW1 ([facility]) Drug allergy Cefaclor Cefaclor Hives Active eCW1 ([facility]) Avelox Avelox 250 ML moxifloxacin 1.6 MG/ML Injection [ Avelox] Anaphylaxis Active eCW1 ([facility]) Erythromycin Erythromycin Erythromycin 500 MG Delayed Rele ase Oral Tablet Hives Active eCW1 ([facility]) Sulfa Sulfa Sulfa Hives Active eCW1 ([facility]) IVP dye IVP dye IVP dye Anaphylaxis Active eCW1 ([facility] hospital) Shellfish Shellfish Shellfish Anaphylaxis Active eCW1 ([facility] hospital) Drug allergy Avelox 400 MG Oral Tablet Avelox 400MG Oral Tablet lexii phylaxix Active STEPH ([facility]) Allergy to substance Active iodine anaphylaxis Active GR EENWAY ([facility]) Family History Family Member Name Family Member Gender Family Member Status Date o f Status Description Data Source(s) Unknown Unknown Problem MEDENT ([facility]) Unknown Unknown Problem MEDENT ([facility]) Encounters Encounter Providers Location Date Indications Data Source(s ) Outpatient Attender: TO MÉNDEZReferrer: EDGAR Blankenship MD [id number] 06/30/2020 12:00:00 AM EST Obstructive sleep apnea (adult) (pediatric) [facility] Obstructive sleep apnea (adult) (pediatr ic) Unknown [address] [facility] [id number] 06/18/2020 12:00:00 AM EST eCW1 ([facility]) (WC PROC) [facility] Procedure [address] 06/14/2020 12:00:00 AM EST eCW1 ([facility]) Outpatient Attender: TO Blountultant: EDGAR WILKINSON MD 06/09/2020 03:38:00 PM EST - 06/09/2020 04:38:00 PM EST [facility] Outpatient Attender: TO Mcdowellender: JENNIFER Nazario MD [id number] 06/08/2020 12:00:00 AM EST [facility] Outpatient Attender: Jessica romero 05/18/2020 05:35:00 PM EST MEDENT ([facility]) Outpatient 12/23/2019 12:00:00 AM [facility] Outpatient 09/04/2019 12:00:00 AM [facility] [address] [place] [address] 08/14/2019 12:00:00 AM EDT eCW1 ([facility]) Outpatient<td ID="encounterTypeDescripti onID0">urgent visit</td><td>Hayde Padilla RPA</td><td>[facility]</td><td>07/23/2019</td><td><content ID="encounterDiagnosisID0-0">Sinusitis Acute</content></td> Attender: Hayde Padilla PA-C [facility] 07/23/2019 12:50:00 PM EST - 07/23/2019 01:51:00 PM EST Sinusitis Acute STEPH ([facility]) Sinusitis Acute [facility] [address] [place] [id number] 07/03/2019 12:00:00 AM EST eCW1 ([facility]) Outpatient Attender: JENNIFER LICEA MD [id number] 2019 12:00:00 AM EST - 06/24/2019 10:01:41 AM EST [facility] Outpatient Attender: CARMEN ELLISONReferrer: ANDRAE WHITNEY MD 05/15/2019 12:00:00 AM EST Insomnia, unspecified [facility] Insomnia, unspecified Medications Medication Brand Name Start Date Product Form Dose Route Admi nistrative Instructions Pharmacy Instructions Status Indications Reaction Description Data Source(s) NITROFURANTOIN, MACROCRYSTALS 25 MG / Ni trofurantoin, Monohydrate 75 MG Oral Capsule [Macrobid] Macrobid 100 MG Macrobid 100 MG 06/18/2020 12:00:00 AM EST 1.0 {capsule} active Macrobid 100 MG eC W1 ([facility]) NITROFURANTOIN, MACROCRYSTALS 25 MG / Ni trofurantoin, Monohydrate 75 MG Oral Capsule [Macrobid] Macrobid 100 MG Macrobid 100 MG 06/18/2020 12:00:00 AM EST 1.0 {capsule} active Macrobid 100 MG eC W1 ([facility]) Levofloxacin 750 MG Oral Tablet levoFLOXacin 750 MG Or al Tablet (Levaquin) levoFLOXacin 750 MG Oral Tablet (Levaquin) 06/08/2020 12:00:00 AM EST 750 mg Oral active Personal history of covid-19CoughWhe ezingShortness of breath Take 1 tablet by mouth daily for 5 days [facility] Personal history of covid-19 Cough Wheezing Shortness of breath Misc. Devices (DURABLE MEDICAL EQUIPMENT SEE SIG) XX MISC 97 [id number] 06/08/2020 12:00:00 AM EST active MERCEDES o n CPAP Use as directed. Please provider her with current mask in size small instead of medium. Please obtain compliance data download at 14 days Dg: MERCEDES. [facility] MERCEDES on CPAP Prednisone 20 MG Oral Tablet predniSONE 20 MG Oral Tab let (DELTASONE) predniSONE 20 MG Oral Tablet (DELTASONE) 06/08/2020 12:00:00 AM EST Oral active Personal history of covid-19CoughWheezingShortness of breath Take 2 tablets by mouth daily for 4 days, THEN 1 tablet daily for 4 days, THEN 0.5 tablets daily for 4 days.. [facility] Personal history of covid-19 Cough Wheezing Shortness of breath Albuterol Sulfate HFA 108 (90 Base) MCG/ ACT Inhalation Aerosol Solution (PROVENTIL HFA) [id number] 06/08/2020 12:00:00 AM EST 2 {puff} Inha lation active Shortness of breath Inhale 2 puf fs into the lungs every 4 (four) hours as needed for Wheezing or Shortness of Breath [facility] Shortness of breath Albuterol Sulfate HFA 108 (90 Base) MCG/ ACT Inhalation Aerosol Solution (PROVENTIL HFA) [id number] 08/28/2019 12:00:00 AM EDT active SHAKE WELL AND INHALE 1 PUFF Q 4 TO 6 H PRN [facility] Azithromycin 250 MG Oral Tablet Azithromycin 250 MG Oral Tab let 07/23/2019 12:00:00 AM EST active Azithrom ycin 250 MG Oral Tablet STEPH [facility] Mis. Devices (DURABLE MEDICAL EQUIPMENT SEE SIG) XX [facility] 97 [id number] 06/24/2019 12:00:00 AM EST active Use as directed. Auto-titrating CPAP 5-15 cmH2O via best fitting mask, tubing, filters and all related supplies. Dg: MERCEDES. [facility] Insurance Providers Payer name Policy type / Coverage type Policy ID Covered libertarian ID Covered libertarian's relationship to howard Policy Howard Plan Information [facility] [id number] SP [id number] BCBS EMPIRE [place] DIV [id number] SP [id number] EMPIRE PLAN [facility] U [id number] Self [id number] EMPIRE BLUE CROSS BLUE SHIELD -O/P [id number] [facility] [id number] SP [id number] BCBS EMPIRE SHIRA DIV [id number] SP [id number] BCBS EMPIRE SHIRA DIV [id number] SP [id number] [place] PPO 302/307 [id number] SP [id number] [facility] Other 0 Self 0 [place] Plan F [id number] SELF [id number] BS iFACETS Medigap Part B [id number] Self V [id number] BS iFACETS Medigap Part B [id number] Self Y [id number] [facility] [place] Plan Health Maintenance Organization (HMO) [id number] Self [id number] BS iFACETS Medigap Part B [id number] Self V [id number] BS iFACETS Medigap Part B [id number] Self Y [id number] [facility] Health Maintenance Organization (HMO) [id number] Self [id number] BLUE CROSS BLUE SHIELD -O/P [id number] EXCELLUS BCBS B [id number] P [id number] [place] PPO 302/307 [id number] SP [id number] SELF PAY ONLY UNAVAILABLE UNAV AILABLE [place]BS [place] PPO 302/307 [id number] SP [id number] EXCELLUS BCBS B [id number] S VYS [id number] EXCELLUS H [id number] Self [id number] BLUE CROSS BLUE SHIELD-CLINIC [id number] Problems, Conditions, and Diagnoses Code Display Name Description Problem Type Effective Dates Data Source(s) Z99.89 Dependence on other enabling machines an d devices Dependence on other enabling machines and devices Diagnosis 06/30/2020 08:01:20 AM [facility] G47.33 Obstructive sleep apnea (adult) (pediatr ic) Obstructive sleep apnea (adult) (pediatric) Diagnosis 06/30/2020 08:01:[address] [facility] R0602 Shortness of breath Shortness of breath Diagnosis 0 06/09/2020 03:38:00 PM [facility] G47.30 Sleep apnea, unspecified Sleep apnea, unspecified Diag nosis 05/15/2019 02:53:49 PM [facility] G47.00 Insomnia, unspecified Insomnia, unspecified Diagnosis 05/15/2019 02:53:49 PM [facility] Surgeries/Procedures Procedure Description Date Indications Data Source(s) Office Visit, New Pt., Level 3 FC 08/14/2019 12:00:00 AM EDT eCW1 ([facility]) Results ID Date Data Source [id number] 07/01/2020 09:48:36 AM EST [facility] Name Value Range Interpretation Code Description Data Martha rce(s) Supporting Document(s) Progress Note [facility] PZQYZu9xWuNVZqQw71/NFDeoCRGxy2NbJGonXHf8FUplKCUvL1YdPDZ6rF0eUKY5IRlJRgHtKqNiSZB2 lbm [file] ICAgICAgICAgICAgICAgICAgICAgICAgICAgICAgIC AgICAgICAgICAgICAgICAgICAgICAgICAgICAgICANCiAgICAgICAgICAgICAgICAgICAgICAgICAgIC AgICAgICAgICAgICAgICAgICAgICAgICAgICAgICAgICAgICAgICAgICAgICAgICAgICAgICAgICAgIC AgICAgICAgICAgICANCiAgICAgICAgICAgICAgICAg ICAgICAgICAgICAgICAgICAgICAgICAgICAgICAgICAgICAgICAgICAgICAgICAgICAgICAgICAgICAg ICAgICAgICAgICAgICAgICAgICAgICANCiAgICAgICAgICAgICAgICAgICAgICAgICAgICAgICAgICAg ICAgICAgICAgICAgICAgICAgICAgICAgICAgICAgIC AgICAgICAgICAgICAgICAgICAgICAgICAgICAgICAgICANCiAgICAgICAgICAgICAgICAgICAgICAgIC AgICAgICAgICAgICAgICAgICAgICAgICAgICAgICAgICAgICAgICAgICAgICAgICAgICAgICAgICAgIC AgICAgICAgICAgICAgICANCiAgICAgICAgICAgICAg ICAgICAgICAgICAgICAgICAgICAgICAgICAgICAgICAgICAgICAgICAgICAgICAgICAgICAgICAgICAg ICAgICAgICAgICAgICAgICAgICAgICAgICANCiAgICAgICAgICAgICAgICAgICAgICAgICAgICAgICAg ICAgICAgICAgICAgICAgICAgICAgICAgICAgICAgIC AgICAgICAgICAgICAgICAgICAgICAgICAgICAgICAgICAgICANCiAgICAgICAgICAgICAgICAgICAgIC AgICAgICAgICAgICAgICAgICAgICAgICAgICAgICAgICAgICAgICAgICAgICAgICAgICAgICAgICAgIC AgICAgICAgICAgICAgICAgICANCiAgICAgICAgICAg ICAgICAgICAgICAgICAgICAgICAgICAgICAgICAgICAgICAgICAgICAgICAgICAgICAgICAgICAgICAg ICAgICAgICAgICAgICAgICAgICAgICAgICAgICANCiAgICAgICAgICAgICAgICAgICAgICAgICAgICAg ICAgICAgICAgICAgICAgICAgICAgICAgICAgICAgIC AgICAgICAgICAgICAgICAgICAgICAgICAgICAgICAgICAgICAgICANCjw/xRJtB5xjwXIlrnS9P3aqNx 0SAi0GBQ1ai4PfIAByQCpgwrDbUxuPSuHcDUOnPokQJxq5MAdsQW4MsCHrG3RzD2QkKPivHR3ZMCNiFM EqwEMjCJEmDQMdExJ0BBDiOClxLK5XcIEcHYhqUSIc XVWcTxRfPIDtJVBxSLKrDPQmSDYZMG8DQaNqM0LwqN70PTGGBk2+GFkuwlWnUzqPHzK0UDBle8UmMPg1 SG6QGVIlIwdcj2IxFpcvWXLPWLpdZZ5KHYQ4MVY4EDLqSx5PQFCcJ113nzUzRJ6RXl4TCkHwAG2sfr0V JtnxDABbQdeWGaq1JBuqUV4YsKQuQXjQlj7urxUfpw GVk2SmyoHpzUHPaA1vRAEafTNYCNRsvpVnOD6xXRSARLKphSTcRiJ2UnXoJkIwTJU8YwHvCH7kQGayTS 7AKLP9ESdeIQTqZDYmY3gJKoUaMWSnSqJbjBxqBI8MRpIyH5WnmeVoaHXiMLVcTGRFQc8+DQplbmRvYm sJErQcMVFyr3VhJQh1DW3MLVKePHndOA5YIDRhzL8u KXqsMG2KZyKkWnSfTAKTWoUdE71wkNElBBj7L7QhYeUlJZZkCqduKPUlFFumTpYzZIHnZhRnGWxaDA2+ ID4+HVcjAI1NTXeruaSdGQAxBt7COOSzTCGjSF6lTPDrASWwY5L7yWooZTGJAbDsI3kmxjluIS2hNPXy N108dNgezlVpGLS8UPNeEw9YALBrMBD4GVYnsTTySn krKKOPKGntTH8QhIPhNYV7aA2uVOgnBXUpLYAeV1yOYyHoePltAL86vPskqtXlzHZpNMs+Jp1NKG7gp7 DaCLf2biFdPMshLQAdYCzwNLDfZOArXWXcMFO8BTR5WADTDmQyWZFtKATpKJvgNBFaGOIrtq1VHEOsCZ AzMDMxNSAwMDAwMCBuDQowMDAwMDMyMDUwIDAwMDAw KA7BCvRjTOUrFYPlRKqgZBFpTMFgkc1TIWIjIHSpKNM4PPBdPVFnLEIuEHqqXQUeWLQ8EsrzCPPqMUEb TA1QZoBkAEFpNJx5GYOeRFTzCVEefr8MYIPrJRIyDgmpXbLsRHEkCTDyBWobPTZbHKRyEMUuHLQmYDQj ZK4BOuFbLXTsFWYvUbwaNCJpOGWrbo8LNFZpXABdUn juGwUaVABhFKSjIKbwZTDcXRIrKVArHZSaPCEyHW4TGtVgGVUkPOZ4RBEtUUFqDTFgml0TMGGaCZMnID T7MCXnLVLhGZLiRFftYFSnSWJ4BdteFWWtHFHcJC6UXnGiQSAxERAhRrEcVSKkNHBqjr3WXSOwGOPkCu VeKzNvUJJgMRKsCTldREBfKJO7BlPzGOYmYHVoVS6U AdLtOIToTjbcJLDqTULuTSBqha2DLYRiLSEgLZL5IgZyUDFrSNXzWBxxKNKpIYB7GMt5LTLuXXNyCM1I QlRoFGIxKiw7LzLhPHFpRXPbgq3UCCGaJQClTWl2ZDPcUKSfTFJsJPzzZTYhXZM4LTL9UDXrCTFdRM3G CyNaETHjMbYtMZBkOCOcCIYhkq7HODTfPWRfCAZ0As IhNYAzPSKmQFaxCMPbRCGlGiKqBLOxVVBhKI4VWiIuTKQeLuUpJghtOWAcUISbol9FAHUcWYMuJxMtMJ VxISDzQZPePWidYDFmZGZgRjjvVDPkZTFtQK1KLyIzSFigVIDQBtt7HOweN2u3MAJoPX6HP2Vxr3XmAd SqGKBNDEgeYB4odgAqTOQhDr7LW5tCCfwxK2C8Cho7 VFPpFFYrKPU3FMoyDoGjScV8JnPjAyn7EX4tRIFnLPJlUCpoQCMfQCAoWmH0T6G3DuIgMbg0TvNpGUrl IyChMF3NGr3BOwQ9YIC0pWRpVu1KToS5PkFEAtPpWA8FZAa= ID Date Data Source [id number] 06/11/2020 06:05:[address] [facility] Name Value Range Interpretation Code Description Data Martha rce(s) Supporting Document(s) Progress Note [facility] EPPLKz1bVtJGVqVm46/DXQhwBDNgw6RkAZquKYe7YWsjEFNrJ0ZpZNQ9bT9vJPU6JDkNZvWyIkDtCQZ6 lbm [file] ICAgICAgICAgICAgICAgICAgICAgICAgICAgICAgICAgICAgICAgICAgICAgICAgICAgICAgICAgICAg ICAgICAgICAgICAgICAgDQogICAgICAgICAgICAgIC AgICAgICAgICAgICAgICAgICAgICAgICAgICAgICAgICAgICAgICAgICAgICAgICAgICAgICAgICAgIC AgICAgICAgICAgICAgICAgICAgICAgICAgDQogICAgICAgICAgICAgICAgICAgICAgICAgICAgICAgIC AgICAgICAgICAgICAgICAgICAgICAgICAgICAgICAg ICAgICAgICAgICAgICAgICAgICAgICAgICAgICAgICAgICAgDQogICAgICAgICAgICAgICAgICAgICAg ICAgICAgICAgICAgICAgICAgICAgICAgICAgICAgICAgICAgICAgICAgICAgICAgICAgICAgICAgICAg ICAgICAgICAgICAgICAgICAgDQogICAgICAgICAgIC AgICAgICAgICAgICAgICAgICAgICAgICAgICAgICAgICAgICAgICAgICAgICAgICAgICAgICAgICAgIC AgICAgICAgICAgICAgICAgICAgICAgICAgICAgDQogICAgICAgICAgICAgICAgICAgICAgICAgICAgIC AgICAgICAgICAgICAgICAgICAgICAgICAgICAgICAg ICAgICAgICAgICAgICAgICAgICAgICAgICAgICAgICAgICAgICAgDQogICAgICAgICAgICAgICAgICAg ICAgICAgICAgICAgICAgICAgICAgICAgICAgICAgICAgICAgICAgICAgICAgICAgICAgICAgICAgICAg ICAgICAgICAgICAgICAgICAgICAgDQogICAgICAgIC AgICAgICAgICAgICAgICAgICAgICAgICAgICAgICAgICAgICAgICAgICAgICAgICAgICAgICAgICAgIC AgICAgICAgICAgICAgICAgICAgICAgICAgICAgICAgDQogICAgICAgICAgICAgICAgICAgICAgICAgIC AgICAgICAgICAgICAgICAgICAgICAgICAgICAgICAg ICAgICAgICAgICAgICAgICAgICAgICAgICAgICAgICAgICAgICAgICAgDQogICAgICAgICAgICAgICAg ICAgICAgICAgICAgICAgICAgICAgICAgICAgICAgICAgICAgICAgICAgICAgICAgICAgICAgICAgICAg YFEjNYHxNZXiGBJnTSPeSSIpMRKaBWJdEYs5H7buXV YeSPFyPU7xCUm3Fg0+UZaUFqNoIQW1yoBauX0JVV6gi7HvPTuuYFCti7OnYUj7VA8BDXCuVHktAI4RNS vutc3NVQDiMMGytGJQc4pyDzZaEHY8VMShUyjdFV1ZNJVyQ6apaiNnYOFlLRFCYOpkPEELXNsmJVSMZW UpGFJkInQeLyCcESSyLU4ZILPlS098bvSaIQ7MRu7E PvEpAV0dzy0CWjVqIVDwVeoHUqx3VJybIX4PcMKleLFnRCZmGLCENpTbF5axd3SrTrVtDUUDCJxkOM6L s7QyxSPgLFe+Zu3HAM2dt9MfOOliLEGhCR2pwk6TNKqBFpPuC4ExkKiuUFJpc9cxUMAwCL4xvFBxGCS4 PUlgdQSwkvc7HJQsH3QfAQMagwbgLG2MGLZ1FJCrHL 1uKVUvNTUhRnQjYYHMTF8PCJSvFJKzjWUbJWFlVDXFIA4OLAusYTW5YFNxqxZamDUuLXmpRY5DXLAdrc QgMzAgMCBSDQo+Wg4CPS3cz7ReCSteAzEvJJ3ett5BYXcMPzTjK0T5qSJqA5D4PJadOs7SMZQzTQNsSf btLACPOWjrGT4UEA4qgqR5SQ0SjFRoDDThIYKewCAp QWb8U64bhMNeQAybOE2AURP+Zari+Lg7SUDNqBZVtASFsBuMkHZFHQtHlM7EkW2DGk0EiB7KrYC24pKvs niWuJCezIF4LNJ5fQADvMRQTNP5WdURmjK2xhqCnFQSlIKZBHaPhI36bkUZmSIKgSJC3CEIbQe7ZMDGh Z0NcquOwvEixwkLtXDMkJLXGNL0SBJujuwRfmIUclA usRB78nSigTG8KVu0CCeZkQS8ick0YfTKmQu3BLDEbXs6LUQAdFIXiNBNnQFH9TWBtYhGmUEvaNGToET ElUVD7ESQpEZLuTJ8FAjUyBIAsUiExAIpmVDZnJZMdhj1FUFJoLZXdJSVdRHOjCMMaTCHmPDwfZJNbSC GbLOD2DQUmCXLnLL3YBhQzUIDjBZOwRQJmMNBuUAFk in9XGJLrYYGlNQHrMFVqIQQpTHZkUZnaVGMkOPU8MxJ7KOEcNNPhLX0NVtGfANMrQVj3BuqcZUUvUVVg eq2TQFZmJVHbYSWaFbGqGTRiLHVsQZdtPNOeWDHsJSQ5CPAcQUIuPC4WZcVbYJVtMJT7MiOsSPFxVLBe ds0BPNOgJYCrYtq6SAQrLKErRWCnBTlzPYLgQSY6JI PpRLVpEYYxMX8YGvEzFDAxRYRnWEIxSEKiHLJuow1DUXOgIZRhZuz3LpVkIOKuSIWzHGqgBPWbEMB6AB MpXIYaHBFdDP4GPiNyQKWhPIzdVHZjHWGyVOPvnj4KFZQySLNhPXWgQHBcDAXdRPBlJTwlUNBjFSU0QX Q4BBMpYIDaVT4DGxTdYIPoUPj1ODBhHBJbTBHmah3U JKOlVIEtCWDxURMvWELdVCXuDGasYABvMMXbCEPmYHTvCQLsEX4SCkZbBTCmDkP6GSreVREnLAProq5M HARaLVDwBWheSGUjKWIzCJJxRLqnYFAeEODxUSV3NGUgVTFeQR0PQyWdMYXiKtR1BKnkPZYzNCQida8E NOXeWGCwWfA2LCYpBXEqLFUmVJidXABjCBQxEyL5EI PdBMVuQF6WDpHjLUNzLtD1BLVwZNEuNJSkuz2ZFDVyBREjZQU7NGMyESVeHDBaXGepBENeEUQ9NvS1IE MpOTCsDL8TJqWbDNSxUuX0RdVyDUDpMKZhby6OuNBqiWmhae1ENXaRVk1NnEheJYLyEAloXn0ugHCrQt VqSMABGh5EdcMhFBOyMICUYSdpLNDhPPbpOlI5JOF6 YICgFOCwPFQyJfO3KCEwWrWkFJI0UkXrArS8SCXvIEWzRazuFxN8GKM4EmDkQbQaDAYhZ9X4DSNrEtT+ ZX5pHBh+Tp3Yj6SmvpH0fdYdJGunOGoeLa7OPBKVM7GSGp== ID Date Data Source [id number] 06/11/2020 11:04:00 AM EST [facility] [address] [place] [address] PHONE: [phone] FAX: [phone] Name .................. : JOSUÉ Faustin Acct Number.................. : [id number] ROOM. ................. : MR Number ................... : [id number] Stay type ............. : O/P Discharge Date......... ... : 06/09/20 Admit Date ......... : 06/09/20 Admit Phys .................... : DEV Best Date of ....... : 1985 Family Phys ................... : VAN TIMOTEO Phone .................. : [phone] Age ................................ : 35 Film# .................. .:[id number] Sex ................................. : F Unsigned transcriptions are preliminary reports and do not represent a medical or legal document CHEST 2 VIEWS [id number] COMPLETE:06/09/20 16:12 LIBRA 1601 (REASON FOR CHEST: [...] By Usman Fischer MD , 06/11/20 11:04, [facility] Transcribe Initials: DZ , Transcribe Date: 06/09/20 21:24, Dictation Date: Copy for: DEV ARIZA Copy for: VAN EDGAR via [employer] Copy for: Hugo [facility] REC Page 1 of 1 Name Value Range Interpretation Code Description Data Martha rce(s) Supporting Document(s) ID Date Data Source [id number] 05/18/2020 12:00:00 AM EST [facility] Name Value Range Interpretation Code Description Data Martha rce(s) Supporting Document(s) SARS-CoV2 Rapid Antigen [facility] This lab was reported by Seth wolff. ID Date Data Source [id number] 06/26/2019 02:28:[address] [facility] Name Value Range Interpretation Code Description Data Martha rce(s) Supporting Document(s) Progress Note [facility] SKSDPg5xKwENRfUt49/FJWsoVQApe6YeHIitWUs0ARvePGEeC2NoCXC6vX6hVJU0THjDEpDgDqJpVNXu [facility] [file] [id number]== ID Date Data Source [id number] 06/24/2019 09:18:06 AM [facility] Name Value Range Interpretation Code Description Data Martha rce(s) Supporting Document(s) Progress Note [facility] LRMXDv6tUdQKJcMj80/ZRLzrGUFhr6KxSEerWWi6MMqyNZNzE1EiTVU3yY1xFKM5VRhZUmTnIlWcJJVq lbm JsKomPCgIzUEZdAexYZpRmWFixLvorxAZtSH0WdLT2UPMxI16bUOLtDNVsT3LuHZG0VLP+Fs7SHQAmhO IxWZ4CFntZ8Mpmn5rCLe2tdR1mlHQBR1bZzGaYbdBTXGquYPS2hpwFha/pFw37zKplpUmG/J3ZarJmB7 EBg23uPLOXgiTMJB9302svn9UkgqKs/55an1eZQJCj n+4yyTiZLsmf/3K3grH84uiUopL3ehVPAkiX2nSbd1/8irGERrLSgPCChVt3UTdpqjMHetErd/YqL9er 3yCe5OL4SvcXAOUcdh34d48LcHQG0y/ffUcm/yWnE/Jua7+SfzA4qr/xpmSHHKurSx21cyGeCm6WZg3R w36aAll+LTRONLM34k2KraRl2hDhKx2pE4ZyRcTQuT +wuXXAU/o8L2bwGvs8XZWJigzs55dKgrZOH8kcPd+K6vnelj+bHcN35ajzGVb7F9uRkijXQ5x/qlYGcU szgVQWL5rwSmaQbQsyUTbb5qdDQZIZne3SV0HalPgTrWKKx4YVFfTPxyzzOg7KKfrHW0+Yo0oDDoepR7 IesQwdXsYaXozLUxQljqxPZrOqWCNOUQNvuOJRkqTk lPy4qq/yJXm/ymforgxv/2DHHL3xiwBruEljkYx1OozwFVj9a81hOkp/iC3a6uxq7Jzno9iI3wy8/gu6 xV358rlzlYeA5UfsMuVUdCVtxXdqynPTByqydWz76EZxiIrFLQh7lC2q3P91Sp0Ug5PG3q3NCsYeGrGz I2DDRsMS8cC20QpaT58NynYgUTCVF5Fz5lu4TiulIm IgwrcCuwiSN2XAe/TcK8HAVJeJh72sezCmzeg1Nrxnb7OvtA+ThZDKBTvizf+MP6Rp00pCnAcbiSi4mq aG5dLrAhSTV0HJ4jTUF82A1Vq7zqi1AmAcUspmMUyb7jhklNAU9kJNOiBpOgvA/P4B6+8UtX8hGfqJnl 567NhoRLrhBwEd9WC/V2lLAjv8EuzGlXvpr/LbviU0 vZAqMN2/eIMUi9IHYV2Ras3Zc8Duu5bz0IVX6vIH8NJmEnwpR9Jmn0zScS6YdnsEHyEGHvlSjoqe+Radha [file] CxeZjhDWHOScHsHCH7HBdcQQZKBo0V ID Date Data Source [id number] 06/24/2019 09:17:20 AM EST [facility] Name Value Range Interpretation Code Description Data Martha rce(s) Supporting Document(s) Progress Note [facility] IGWSIj4gTgCUUlPo00/TIGjzLSQfz4EbMVqlZNc7TYvyFUKrY1DfIMA9dT8gHMJ4QLfDKnSqXhLxROOy lbm [file] tPKl3I+5Bwq9+g2KamVS0Z/Maria Isabel+hxvc9oyMHXqnoh0 [file] H2PfZ7ZRElPCY6EtS2PRqcUBN1EFr0XyDpWO0LKt4ZIuM5IJC4xPAqKt5IKPm9OJIMPxWxBA2HYUo= Procedure Social History Code Duration Value Status Description Data Source(s ) Smoking 06/11/2020 12:00:00 AM EST Never Smoker completed Never S moker eCW1 ([facility]) Smoking 06/11/2020 12:00:00 AM EST Never Smoker completed Never S moker eCW1 ([facility]) Smoking 07/23/2019 02:09:13 PM EST Ex-smoker (finding) complet ed Ex-smoker (finding) STEPH ([facility]) Alcohol intake 06/26/2019 12:00:00 AM EST Current drinker of al cohol (finding) completed Current drinker of alcohol (finding) [facility] Tobacco use and exposure 06/26/2019 12:00:00 AM EST Never used co mpleted Never used [facility] Smoking 06/26/2019 12:00:00 AM EST Former smoker completed Former smoker [facility] Smoking 06/26/2019 12:00:00 AM EST Former smoker completed Former smoker [facility] Vital Signs ID Date Data Source UNK Name Value Range Interpretation Code Description Data Source(s) Diastolic blood pressure 80 mm[Hg] 80 mm[Hg] eCW1 ([facility]) Systolic blood pressure 130 mm[Hg] 130 mm[Hg] e CW1 ([facility]) Body mass index (BMI) [Ratio] 29.6 kg/m2 29.6 k g/m2 eCW1 ([facility]) Body height 67 [in_i] 67 [in_i] eCW1 ([facility]) Body weight 189 [lb_av] 189 [lb_av] eCW1 (Counts include 234 beds at the [facility]) Body mass index (BMI) [Ratio] 27.8 kg/m2 27.8 k g/m2 MEDENT ([facility], [facility]) Body height 66 [in_i] 66 [in_i] MEDENT ([facility], [facility]) 5'6" Body weight 172.00 [lb_av] 172.00 [lb_av] MEDEN T ([facility], [facility]) Body temperature 98.9 [degF] 98.9 [degF] MEDENT ([facility], [facility]) Oxygen saturation in Arterial blood by Pulse oximetry 96 % 96 % MEDENT ([facility], [facility]) [facility] rate 14 /min 14 /[facility] Heart rate 94 /min 94 /min MEDENT ([facility], [facility]) Diastolic blood pressure 102 mm[Hg] 102 mm[Hg] MEDENT ([facility], [facility]) Systolic blood pressure 132 mm[Hg] 132 mm[Hg] M EDENT ([facility], [facility]) Diastolic blood pressure 70 mm[Hg] 70 mm[Hg] eCW1 ([facility]) Systolic blood pressure 118 mm[Hg] 118 mm[Hg] e CW1 ([facility]) Body mass index (BMI) [Ratio] 30.63 kg/m2 30.63 kg/m2 eCW1 ([facility]) Body height 67 [in_us] 67 [in_us] eCW1 ([facility]) Body weight Measured 195.6 [lb_av] 195.6 [lb_av ] eCW1 ([facility]) Oxygen saturation in Arterial blood by Pulse oximetry 98 % 98 % STEPH ([facility]) Body temperature 98.5 [degF] 98.5 [degF] [place] ([facility]) Respiratory rate 18 /min 18 /min [place] ([facility]) Heart rate rhythm 1 1 [place] ([facility]) Heart rate 88 /min 88 /min [place] ([facility]) Diastolic blood pressure 88 mm[Hg] 88 mm[Hg] [place] ([facility]) Systolic blood pressure 130 mm[Hg] 130 mm[Hg] [place] ([facility]) Patient Treatment Plan of Care Planned Activity Planned Date Details Description Data Source (s) NITROFURANTOIN, MACROCRYSTALS 25 MG / Ni trofurantoin, Monohydrate 75 MG Oral Capsule [Macrobid] 06/18/2020 12:00:00 AM EST eC W1 ([facility]) NITROFURANTOIN, MACROCRYSTALS 25 MG / Ni trofurantoin, Monohydrate 75 MG Oral Capsule [Macrobid] 06/18/2020 12:00:00 AM EST eC W1 ([facility]) Prednisone 20 MG Oral Tablet 06/08/2020 12:00:00 AM [facility] Misc. Devices (DURABLE MEDICAL EQUIPMENT SEE SIG) XX M [facility] 06/08/2020 12:00:00 AM [facility] ospital Levofloxacin 750 MG Oral Tablet 06/08/2020 12:00:00 AM [facility] Albuterol Sulfate HFA 108 (90 Base) MCG/ ACT Inhalation Aerosol Solution (PROVENTIL HFA) 06/08/2020 12:00:00 AM EST [facility] Albuterol Sulfate HFA 108 (90 Base) MCG/ ACT Inhalation Aerosol Solution (PROVENTIL HFA) 08/28/2019 12:00:00 AM EDT [facility] Azithromycin 250 MG Oral Tablet 07/23/2019 12:00:00 AM EST [place] ([facility]) Misc. Devices (DURABLE MEDICAL EQUIPMENT SEE SIG) XX M [facility] 06/24/2019 12:00:00 AM [facility] ospital
[2020-07-03] MEDS ORDERED: IBUPROFEN 800 MG TAB PO ONE (19:45)
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
[2020-07-03] MEDS ORDERED: ONDA4TAB6 PO (20:09)
[2020-07-03 20:24] VITALS: BP 139/90
--- NOTE | 2020-07-04 12:43 | ED PDOC ---
Post-Departure Follow-Up ct neck faxed to dr menchaca for fu Edna Rodriguez MD Jul 04, 2020 12:43
== END 2020-07-03 20:31 | disposition home or self-care (01) ==
LOC: M ED 17:51
DX: S06.0X9A Concussion with loss of consciousness of unspecified duration, initial encounter (principal); T71.193A Asphyxiation due to mechanical threat to breathing due to other causes, assault, initial encounter; Y04.8XXA Assault by other bodily force, initial encounter; Y92.099 Unspecified place in other non-institutional residence as the place of occurrence of the external cause; Y93.9 Activity, unspecified; Y99.9 Unspecified external cause status; K21.9 Gastro-esophageal reflux disease without esophagitis; R91.8 Other nonspecific abnormal finding of lung field; Z88.8 Allergy status to other drugs, medicaments and biological substances; Z88.0 Allergy status to penicillin; Z88.2 Allergy status to sulfonamides; Z91.041 Radiographic dye allergy status
CPT/HCPCS: 70450; 70490; 84702; 99283; Q0162

== ENCOUNTER → 2020-09-21 | Outpatient (REF) | payer OTHER ==
[~2020-09-21] MED LIST changes: +ONDA4TAB6 PO; +PANT40TA29
[2020-09-21 14:57] LABS: HEMATOCRIT 40.2 % (36.0-47.0); HEMOGLOBIN 13.7 g/dl (12.0-15.5); MEAN CORPUSCULAR HEMOGLOBIN 31.3 pg (27.0-33.0); MEAN CORPUSCULAR HGB CONC 34.1 g/dl (32.0-36.5); MEAN CORPUSCULAR VOLUME 91.8 fl (80.0-96.0); PLATELET COUNT, AUTOMATED 259 10^3/uL (150-450); RED BLOOD COUNT 4.38 10^6/uL (4.00-5.40); WHITE BLOOD COUNT 11.3 10^3/uL (4.0-10.0)
[2020-09-24 09:06] LABS: HIV 1&2 SCREEN CENTAUR NEGATIVE (NEGATIVE)
== END ==
LOC: M PLALAB 09:18
PROVIDERS: ATTEND Specialist
DX: Z34.81 Encounter for supervision of other normal pregnancy, first trimester (principal)

== ENCOUNTER → 2020-10-18 | Outpatient (CLI) | payer OTHER | LOC: M PLALAB 09:02 | PROVIDERS: ATTEND Specialist | DX: O09.511 Supervision of elderly primigravida, first trimester (principal); Z3A.00 Weeks of gestation of pregnancy not specified ==

== ENCOUNTER 2020-10-22 10:52 | Emergency (ER) | payer BC, OTHER ==
[~2020-10-22] VITALS: Ht 167.6 cm; Wt 94.6 kg
--- NOTE | 2020-10-22 12:32 | REP ---
INDICATION: high risk , ensure fetus well, no vag bleeding. COMPARISON: None. TECHNIQUE: Real-time sonographic evaluation of pelvis performed. FINDINGS: There is a single living intrauterine gestation. The estimated gestational age is 12 weeks 0 days based on a crown-rump length of 54 mm, EDC 05/06/2021. heart rate 170 beats per minute. There is no subchorionic hemorrhage. Right fundal fibroid measures 1.5 cm in diameter. In the right ovary there is a 2.3 cm anechoic cyst which may represent a corpus luteum. Blood flow seen in the right ovary with duplex Doppler evaluation, with no torsion. Left ovary is not visualized. IMPRESSION: Single living intrauterine gestation estimated gestational age 12 weeks 0 days, EDC 05/06/2021, heart rate 170 beats per minute. No subchorionic hemorrhage. <Electronically signed by Riley Powell > 10/22/20 [id number]
[2020-10-22 12:56] LABS: BASO # 0.1 10^3/uL (0.0-0.2); BASO % 0.5 % (0.0-1.0); EOS # 0.2 10^3/uL (0.0-0.5); EOS % 1.4 % (0.0-3.0); HEMATOCRIT 38.4 % (36.0-47.0); HEMOGLOBIN 13.2 g/dl (12.0-15.5); LYMPH # 1.9 10^3/uL (1.5-5.0); MEAN CORPUSCULAR HEMOGLOBIN 31.2 pg (27.0-33.0); MEAN CORPUSCULAR HGB CONC 34.4 g/dl (32.0-36.5); MEAN CORPUSCULAR VOLUME 90.8 fl (80.0-96.0); MONO # 0.6 10^3/uL (0.0-0.8); MONO % 5.8 % (2.0-8.0); NEUTROPHILS # 7.7 10^3/uL (1.5-8.5); NEUTROPHILS % 73.7 % (36.0-66.0); PLATELET COUNT, AUTOMATED 245 10^3/uL (150-450); RED BLOOD COUNT 4.23 10^6/uL (4.00-5.40); WHITE BLOOD COUNT 10.4 10^3/uL (4.0-10.0)
[2020-10-22 13:26] LABS: ALT/SGPT 19 U/L (12-78); BILIRUBIN,DIRECT < 0.1 MG/DL (0.0-0.2); BILIRUBIN,TOTAL 0.3 MG/DL (0.2-1.0); CK-MB VALUE MASS < 1.0 NG/ML (<3.6); CPK CREATINE PHOSPHOKINASE 59 U/L (26-192); FREE T4 0.85 NG/DL (0.76-1.46); LIPASE 102 U/L (73-393); MB/CK RELATIVE INDEX 1.69 (< OR =4); NT-PRO BNP 74 PG/ML (<125); TOTAL PROTEIN 6.6 GM/DL (6.4-8.2); TROPONIN I < 0.02 NG/ML (< 0.10)
[2020-10-22 14:44] LABS: MAGNESIUM LEVEL 1.7 MG/DL (1.8-2.4)
[2020-10-22 16:15] VITALS: BP 134/77
--- NOTE | 2020-10-22 16:41 | IPNPDOC ---
Text Note Date of Service The patient was seen on 10/22/20. NOTE Outpatient Requested to evaluate patient by Homa RAMIREZ. Homa states patient unhappy " OB doesn't care about me, ED doesn't care about me." Full ED work up benign, normotensive. Patient had called our office, reported severe swelling of legs, face and hands. Reported history of "eugenio high" BP that required hospitalization a few years ago. She is currently 11wks gestation. Denies LOF ,bleeding or UC. Ms Hernandez resting comfortably, no distress. Smiling and talking with daughter. Reviewed sonogram in detail with patient. Reassured her that the itself was fine. Discussed probable underlying condition that is causing her complaints. She states she hasn't seen Dr Boateng in a while. Lower extremities without edema by my assessment. Recommended patient make appt with Tasneem NEWMAN. She has appt with Isr[facility] Sunday Enc her to rest this , drink adequate fluids. Enc to call education general manager this weekend with further concerns. Perhaps check her blood pressure a few times and report if elevated. Enc her to start ASA 81mg daily. Pt verbalized understanding and appreciation of time spent. VS,Randellbone, I+O VS, Fishbone, I+O Laboratory Tests 10/22/20 12:38 Vital Signs Date Time Temp Pulse Resp B/P (MAP) Pulse Ox O2 Delivery O2 Flow Rate FiO2 10/22/20 16:15 97 22 134/77 (96) 97 Room Air 10/22/20 10:54 98.3 Peyton Garcia CNM October 22, 2020 16:41
--- NOTE | 2020-10-22 20:37 | ECGEPIP ---
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
== END 2020-10-22 16:37 | disposition home or self-care (01) ==
LOC: M ED 10:52
DX: O12.01 Gestational edema, first trimester (principal); Z3A.12 12 weeks gestation of pregnancy; Z88.1 Allergy status to other antibiotic agents; Z88.2 Allergy status to sulfonamides; Z88.8 Allergy status to other drugs, medicaments and biological substances

== ENCOUNTER → 2020-10-25 | Outpatient (REF) | payer OTHER ==
[2020-10-25 13:39] LABS: TOTAL PROTEIN,RANDOM URINE 9.9 MG/DL (0.0-12.0)
== END ==
LOC: M PLALAB 08:51
PROVIDERS: ATTEND Obstetrics & Gynecology
DX: Z36.89 Encounter for other specified antenatal screening (principal); Z3A.12 12 weeks gestation of pregnancy

== ENCOUNTER → 2020-11-19 | Outpatient (REF) | payer BC, OTHER | LOC: M SFHCWAGY 16:56 | PROVIDERS: ATTEND Obstetrics & Gynecology | DX: B37.3 Candidiasis of vulva and vagina (principal) ==

== ENCOUNTER → 2020-12-20 | Outpatient (CLI) | payer BC ==
--- NOTE | 2020-12-20 14:57 | REP ---
INDICATION: ANATOMY. COMPARISON: 10/22/2020. TECHNIQUE: Real-time sonographic evaluation of the gravid uterus performed. FINDINGS: Estimated gestational age is20 weeks 0 days, EDC 05/09/2021. Today's measurements indicate appropriate growth. Presentation: Variable Placenta anterior, grade 0, without evidence of placenta previa. heart rate is recorded at 152 beats per minute. Amniotic fluid is subjectively normal. Closed cervical length is measured at 4.9 cm. Biometry chart: BPD: 48 mm, 20 weeks 3 days, 63rd percentile. HC: 176 mm, 20 weeks 1 days, 53rd percentile AC: 148 mm, 20 weeks 1 days, 52nd percentile Femur length: 32 mm, 20 weeks 0 days, 51st percentile HC to AC ratio: 1.19, normal range 1.06-1.24. Estimated weight: 332g, 51st percentile. anatomy: Cranium: Grossly normal Lateral Ventricles/Choroid Plexus: Grossly normal Posterior Fossa/Cerebellum: Grossly normal Nose/lips/profile: Grossly normal Four chamber heart: Grossly normal Right ventricular outflow tract: Grossly normal Left ventricular outflow tract: Grossly normal Left-sided stomach: Grossly normal Kidneys: Grossly normal Bladder: Grossly normal Cord Insertion: Grossly normal 3 vessel cord: Grossly normal Spine: Grossly normal IMPRESSION: Viable single intrauterine gestation as above. <Electronically signed by Riley Powell > 12/20/20 [id number]
== END ==
LOC: M WHC 12:39
PROVIDERS: ATTEND Obstetrics & Gynecology
DX: O09.512 Supervision of elderly primigravida, second trimester (principal); Z3A.20 20 weeks gestation of pregnancy

== ENCOUNTER 2021-01-31 14:15 | Outpatient (CLI) | payer BC, OTHER ==
[~2021-01-31] VITALS: Ht 167.6 cm; Wt 105.9 kg
[~2021-01-31 14:15] MED LIST changes: -DOXY100C PO; +DOXY100C3 PO
[2021-01-31 14:39] VITALS: BP 117/68
[2021-01-31] MEDS ORDERED: GNP250TA9 PO (14:49)
[2021-01-31] MEDS ORDERED: PRENTAB9 PO (14:49)
[2021-01-31] MEDS ORDERED: SUCR1ORA PO (14:49)
[2021-01-31] MEDS ORDERED: VITATAB74 PO (14:49)
[2021-01-31] MEDS ORDERED: ASPI81CH33 PO (14:49)
[2021-01-31] MEDS ORDERED: METO1TAB7 PO (14:49)
[2021-01-31] MEDS ORDERED: CALC600T61 PO (14:49)
[2021-01-31] MEDS ORDERED: PROT1TAB2 PO (14:50)
[2021-01-31] MEDS ORDERED: HOME MED LIST COMPLETE! XX SCH (14:55)
--- NOTE | 2021-01-31 14:59 | IPNPDOC ---
Text Note Date of Service The patient was seen on 01/31/21. NOTE Subjective: Nelida is a 36-year-old who is 26 weeks gestation with an CAS of 05/09/21. She initiated care in her first trimester. Her has been complicated by advanced maternal age [NIPT low risk normal female]; CHTN [managed with metoprolol 50 mg QD]; and obesity. She presents to L&D today with complaints of what she believes is a BP issue (took BP at home using wrist cuff that she bought OTC and reported her BP was 140's/90's), feeling like she is floating, room spinning, headache and nausea. She was seen in the office today due to her symptoms by a nurse and had a slightly elevated BP but no severe range BP. She reported to clinic nurse that she "knows it is my BP causing these issues." She has tried Esgic and it hasn't helped. This has been occurring since last night and got worse today. Dizzines gets worse when she lifts her head up to move but doesn't occur when she moves her head side to side. Reports stuffy nose for 7-10 days. She also had Covid-19 in May. Reports active move ment, denies cramping, vaginal bleeding, or leaking of fluid. OB Hx: -1999- of living female weighing 6 lbs 3 oz, no complications; -1 SAB Medical Hx: GERD; Hx of abnormal pap smear; chronic sinusitis; endometriosis; obesity; COVID 05/2020 Surgical Hx: LEEP in 2003; laparoscopy for endometriosis by Dr. 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 denies current alcohol or drug abuse or use Family Hx: breast cancer; heart disease; lung cancer; HTN; DM-2; CVA; RA; melanoma Objective: VS and labs: see below. Normal orthostatic blood pressures. All BP's normotensive FHR: 140, moderate variability, 10x10 accelerations, no decelerations. Appropriate for gestation. [place]: no contractions General: Patient is awake and alert. She does not appear to be in any distress. Side lying. Respiratory: Regular rate and rhythm without use of accessory muscles. Lungs clear bilaterally. Abdomen: gravid and soft to palpation. No pain with palpation Extremities: generalized edema, no pitting edema Assessment: IUP at 26 weeks, dizziness, sinus infection Plan: -Start IV with saline lock and LR at 300 cc/hr -Preeclamptic labs ordered due to patient's reported elevated BPs when she was home that she took with her electric wrist cuff -Declined COVID testing Given all of patient's BPs that are normotensive, her normal preeclamptic labs, and normal orthostatic BPs that were done it was reviewed with patient that her symptoms are not related to her BP. She proceeded to discuss that her symptoms are similar without as much dizziness when she gets a sinus infection. Reports she was suppose to have sinus surgery but got . States it always takes 2 Z-packs to clear her infection related to narrow nasal passages. Will treat with 10 days of Azithromycin with 500 mg loading dose and Scopolamine patches to help with dizziness/motion sickness. All questions answered. Patient discharged to home. She has an appointment in 2 days in the office she needs to follow-up with. Reviewed access to care, normal movement, labor signs, preeclamptic symptoms, and danger signs to report. VS,Fishbone, I+O VS, Fishbone, I+O Vital Signs Date Time Temp Pulse Resp B/P (MAP) Pulse Ox O2 Delivery O2 Flow Rate FiO2 01/31/21 14:39 98.2 104 18 117/68 (84) Vital Signs Label Value Date Time Blood Pressure Assessment 121/60 (80) 01/31/21 1508 Source Automatic Cuff (NIBP) Blood Pressure Assessment 112/55 (74) 01/31/21 1523 Source Automatic Cuff (NIBP) Blood Pressure Assessment 113/62 (79) 01/31/21 1538 Source Automatic Cuff (NIBP) Blood Pressure Assessment 111/66 (81) 01/31/21 1552 Source Automatic Cuff (NIBP) Item Value Date Time White Blood Count 13.2 10^3/uL H 01/31/21 1522 Red Blood Count 3.88 10^6/uL L 01/31/21 1522 Hemoglobin 11.8 g/dl L 01/31/21 1522 Hematocrit 34.5 % L 01/31/21 1522 Mean Corpuscular Volume 88.9 fl 01/31/21 1522 Mean Corpuscular Hemoglobin 30.4 pg 01/31/21 1522 Mean Corpuscular Hemoglobin Concent 34.2 g/dl 01/31/21 1522 Red Cell Distribution Width 14.0 % 01/31/21 1522 Platelet Count 245 10^3/uL 01/31/21 1522 Item Value Date Time Sodium Level 140 MEQ/L 01/31/21 1522 Potassium Level 3.6 MEQ/L 01/31/21 1522 Chloride Level 108 MEQ/L H 01/31/21 1522 Carbon Dioxide Level 22 MEQ/L 01/31/21 1522 Anion Gap 10 MEQ/L 01/31/21 1522 Blood Urea Nitrogen 8 MG/DL 01/31/21 1522 Creatinine 0.53 MG/DL L 01/31/21 1522 Glomerular Filtration Rate > 60.0 01/31/21 1522 Fasting Glucose 112 MG/DL H 01/31/21 1522 Calcium Level 8.8 MG/DL 01/31/21 1522 Total Bilirubin 0.2 MG/DL 01/31/21 1522 Aspartate Amino Transf (AST/SGOT) 9 U/L 01/31/21 1522 Alanine Aminotransferase (ALT/SGPT) 17 U/L 01/31/21 1522 Alkaline Phosphatase 80 U/L 01/31/21 1522 Total Protein 6.1 GM/DL L 01/31/21 1522 Albumin 2.6 GM/DL L 01/31/21 1522 Albumin/Globulin Ratio 0.7 L 01/31/21 1522 Item Value Date Time Urine Random Creatinine 264.0 MG/DL 01/31/21 1521 Urine Random Total Protein 22.9 MG/DL H 01/31/21 1521 IRENA BOWMAN CNM Jan 31, 2021 14:58
[2021-01-31] MEDS ORDERED: ONDANSETRON 4MG/2ML VIAL IV PRN (15:00)
[2021-01-31] MEDS ORDERED: LR 1,000 ML IV SCH (15:00)
[2021-01-31 15:08] VITALS: BP 121/60
[2021-01-31 15:23] VITALS: BP 112/55
[2021-01-31 15:35] LABS: HEMATOCRIT 34.5 % (36.0-47.0); HEMOGLOBIN 11.8 g/dl (12.0-15.5); MEAN CORPUSCULAR HEMOGLOBIN 30.4 pg (27.0-33.0); MEAN CORPUSCULAR HGB CONC 34.2 g/dl (32.0-36.5); MEAN CORPUSCULAR VOLUME 88.9 fl (80.0-96.0); PLATELET COUNT, AUTOMATED 245 10^3/uL (150-450); RED BLOOD COUNT 3.88 10^6/uL (4.00-5.40); WHITE BLOOD COUNT 13.2 10^3/uL (4.0-10.0)
[2021-01-31 15:38] VITALS: BP 113/62
[2021-01-31 15:52] VITALS: BP 111/66
[2021-01-31 15:55] LABS: ALBUMIN 2.6 GM/DL (3.2-5.2); ALT/SGPT 17 U/L (12-78); BILIRUBIN,TOTAL 0.2 MG/DL (0.2-1.0); BLOOD UREA NITROGEN 8 MG/DL (7-18); CALCIUM LEVEL 8.8 MG/DL (8.5-10.1); CARBON DIOXIDE LEVEL 22 MEQ/L (21-32); CHLORIDE LEVEL 108 MEQ/L (98-107); CREATININE FOR GFR 0.53 MG/DL (0.55-1.30); GLOMERULAR FILTRATION RATE > 60.0 (>60); GLUCOSE, FASTING 112 MG/DL (70-100); POTASSIUM SERUM 3.6 MEQ/L (3.5-5.1); SODIUM LEVEL 140 MEQ/L (136-145); TOTAL PROTEIN 6.1 GM/DL (6.4-8.2)
[2021-01-31 16:19] LABS: TOTAL PROTEIN,RANDOM URINE 22.9 MG/DL (0.0-12.0)
[2021-01-31] MEDS ORDERED: SCOP1PAT2 TOP (17:07)
[2021-01-31] MEDS ORDERED: AZIT-12 PO (17:07)
== END 2021-01-31 17:05 | disposition home or self-care (01) ==
LOC: M LDO 14:15
PROVIDERS: ATTEND Advanced Practice Midwife
DX: O99.512 Diseases of the respiratory system complicating pregnancy, second trimester (principal); Z3A.26 26 weeks gestation of pregnancy; J01.90 Acute sinusitis, unspecified; O26.893 Other specified pregnancy related conditions, third trimester; R42 Dizziness and giddiness; O09.522 Supervision of elderly multigravida, second trimester; Z86.16 Personal history of COVID-19; Z88.0 Allergy status to penicillin; Z88.1 Allergy status to other antibiotic agents; Z88.2 Allergy status to sulfonamides; Z88.8 Allergy status to other drugs, medicaments and biological substances; Z91.041 Radiographic dye allergy status
CPT/HCPCS: 59025; 80053; 82570; 84156; 85027; G0378; G0463

== ENCOUNTER → 2021-02-03 | Outpatient (CLI) | payer BC, OTHER ==
[~2021-02-03] MED LIST changes: +ASPI81CH33 PO; +AZIT-12 PO; +CALC600T61 PO; +GNP250TA9 PO; +METO1TAB7 PO; +PRENTAB9 PO; +PROT1TAB2 PO; +SCOP1PAT2 TOP; +SUCR1ORA PO; +VITATAB74 PO
[2021-02-03 13:31] LABS: HEMOGLOBIN 11.7 g/dl (12.0-15.5); MEAN CORPUSCULAR HEMOGLOBIN 30.6 pg (27.0-33.0); MEAN CORPUSCULAR HGB CONC 33.4 g/dl (32.0-36.5); MEAN CORPUSCULAR VOLUME 91.6 fl (80.0-96.0); PLATELET COUNT, AUTOMATED 263 10^3/uL (150-450); RED BLOOD COUNT 3.82 10^6/uL (4.00-5.40); WHITE BLOOD COUNT 13.5 10^3/uL (4.0-10.0)
== END ==
LOC: M PLALAB 09:50
PROVIDERS: ATTEND Obstetrics & Gynecology
DX: O10.912 Unspecified pre-existing hypertension complicating pregnancy, second trimester (principal)

== ENCOUNTER → 2021-02-14 | Outpatient (CLI) | payer BC, OTHER ==
[~2021-02-14] MED LIST changes: -SCOP1PAT2 TOP; +TRAN1DIS4 TOP
--- NOTE | 2021-02-14 08:21 | REP ---
INDICATION: GROWTH/ADV MATERAL AGE COMPARISON: 12/20/2020 TECHNIQUE: Transabdominal obstetrical ultrasound with color Doppler evaluation. FINDINGS: Examination demonstrates a single live intrauterine in cephalic presentation. motion is identified by technologist. Placenta is noted anterior and grade 1 without evidence for placenta previa or abruption. Amniotic fluid volume is normal. Cervix measures 3.7 cm in length and appears closed. Amniotic fluid index equals 19.0 cm. Selected gestational age: 28 weeks 0 days with CAS 05/09/2021. Gestational age by current measurements 29 weeks 5 days with CAS 04/27/2021. FHR equals 147 beats per minute. BPD: 7.7 cm at 31 weeks 0 days HC: 27.4 cm at 29 weeks 6 days AC: 25.3 cm at 29 weeks 3 days FL: 5.5 cm at 29 weeks 0 days HL: 5.0 cm at 29 weeks 2 days HC/AC: 1.08 Estimated weight 1402 grams (89thpercentile). IMPRESSION: Single live intrauterine in cephalic presentation demonstrating appropriate interval growth. Estimated weight within normal range. <Electronically signed by Remigio Romero > 02/14/21 0823
== END ==
LOC: M LAB 08:29
PROVIDERS: ATTEND Obstetrics & Gynecology
DX: O99.810 Abnormal glucose complicating pregnancy (principal); Z3A.29 29 weeks gestation of pregnancy

== ENCOUNTER → 2021-02-14 | Outpatient (CLI) | payer BC | LOC: M WHC 07:21 | PROVIDERS: ATTEND Obstetrics & Gynecology | DX: O10.912 Unspecified pre-existing hypertension complicating pregnancy, second trimester (principal); Z3A.29 29 weeks gestation of pregnancy ==

== ENCOUNTER → 2021-03-21 | Outpatient (CLI) | payer BC, OTHER ==
--- NOTE | 2021-03-21 08:43 | REP ---
INDICATION: GROWTH BPP HYPERTENSION COMPARISON: 02/14/2021 TECHNIQUE: Transabdominal obstetrical ultrasound with color Doppler evaluation. FINDINGS: Examination demonstrates a single live intrauterine in cephalic presentation. motion is identified by technologist. Placenta is noted anterior and grade 2 without evidence for placenta previa or abruption. Amniotic fluid volume is upper limits of normal range. Cervix measures 3.8 cm in length and appears closed. 3.0 cm anterior intramural fibroid noted.. Selected gestational age: 33 weeks 0 days with CAS 05/09/2021. Gestational age by current measurements 35 weeks 0 days with CAS 04/25/2021. FHR equals 124 beats per minute. BPD: 8.8 cm at 35 weeks 5 days HC: 31.5 cm at 35 weeks 3 days AC: 31.6 cm at 35 weeks 3 days FL: 6.6 cm at 34 weeks 0 days HL: 6.0 cm at 34 weeks 5 days HC/AC: 1.00 Estimated weight 2596 grams (greater than 97thpercentile). RASHID: 24.5 cm (8.3-24.5) Umbilical artery SD ratio: 2.16 (1.79-3.77) Biophysical profile score: 8/8 IMPRESSION: 1. Single live intrauterine demonstrating greater than expected interval growth. Correlation is recommended. 2. Amniotic fluid volume is upper limits of normal range at 24.5 cm. 3. Biophysical profile score 8/8 <Electronically signed by Remigio Romero > 03/21/21 [id number]
== END ==
LOC: M WHC 07:53
PROVIDERS: ATTEND Obstetrics & Gynecology
DX: O10.913 Unspecified pre-existing hypertension complicating pregnancy, third trimester (principal); Z3A.33 33 weeks gestation of pregnancy

== ENCOUNTER → 2021-03-31 | Outpatient (CLI) | payer BC, OTHER ==
--- NOTE | 2021-03-31 17:01 | REP ---
INDICATION: BPP WEEKLY GESTATIONAL DIABETES. COMPARISON: None. TECHNIQUE: Transabdominal scanning FINDINGS: Multiple ultrasonographic images of the gravid uterus shows a single living intrauterine gestation in the cephalic presentation. The placenta is anterior and not low-lying. Secondary to the low position of the head inaccurate cervical length measurement could not be obtained. Doppler interrogation of the heart shows a heart rate of 134 beats per minute. The subjective amniotic fluid volume is increased. The calculated amniotic fluid index is 25.9 within expected range 8 to 24.8. Doppler interrogation of the umbilical artery shows an A\B ratio of 3.48. This is within the normal range. biophysical profile score is 2 for breathing, 2 for movement, 2 for tone, and 2 for amniotic fluid volume giving a sum total of 8/8. IMPRESSION: Limited OB ultrasound and biophysical profile as described above. There is evidence of mild polyhydramnios. <Electronically signed by Kalyan Vallejo > 03/31/21 [id number]
== END ==
LOC: M WHC 15:06
PROVIDERS: ATTEND Obstetrics & Gynecology
DX: O24.410 Gestational diabetes mellitus in pregnancy, diet controlled (principal); O40.9XX0 Polyhydramnios, unspecified trimester, not applicable or unspecified; O09.519 Supervision of elderly primigravida, unspecified trimester

== ENCOUNTER → 2021-04-04 | Outpatient (CLI) | payer BC, OTHER ==
[~2021-04-04] MED LIST changes: +ACET-897 PO; +CVS1CAP2 PO
[2021-04-04 15:18] LABS: HEMATOCRIT 36.9 % (36.0-47.0); HEMOGLOBIN 12.2 g/dl (12.0-15.5); MEAN CORPUSCULAR HEMOGLOBIN 29.7 pg (27.0-33.0); MEAN CORPUSCULAR HGB CONC 33.1 g/dl (32.0-36.5); MEAN CORPUSCULAR VOLUME 89.8 fl (80.0-96.0); PLATELET COUNT, AUTOMATED 272 10^3/uL (150-450); RED BLOOD COUNT 4.11 10^6/uL (4.00-5.40); WHITE BLOOD COUNT 12.6 10^3/uL (4.0-10.0)
[2021-04-04 15:50] LABS: ALT/SGPT 24 U/L (12-78); BILIRUBIN,TOTAL 0.3 MG/DL (0.2-1.0); CREATININE FOR GFR 0.59 MG/DL (0.55-1.30); GLOMERULAR FILTRATION RATE > 60.0 (>60); LDH LACTATE DEHYDROGENASE 188 U/L (84-246); URIC ACID 5.4 MG/DL (2.6-6.0)
[2021-04-04 16:13] LABS: TOTAL PROTEIN,RANDOM URINE 25.2 MG/DL (0.0-12.0)
== END ==
LOC: M PLALAB 10:53
PROVIDERS: ATTEND Obstetrics & Gynecology
DX: O10.913 Unspecified pre-existing hypertension complicating pregnancy, third trimester (principal)

== ENCOUNTER 2021-04-05 17:04 | Outpatient (CLI) | payer BC, OTHER ==
[~2021-04-05] VITALS: Ht 167.6 cm; Wt 108.4 kg
[~2021-04-05 17:04] MED LIST changes: -ACET-897 PO; -CVS1CAP2 PO
[2021-04-05 17:35] VITALS: BP 129/75
[2021-04-05 17:51] VITALS: BP 117/69
[2021-04-05 18:07] VITALS: BP 117/69
[2021-04-05 18:15] VITALS: BP 152/86
[2021-04-05] MEDS ORDERED: BETAMETHASONE SOLUSPAN 6MG/ML 5ML VIAL (J0702 PER 3MG) IM ONE (18:30)
[2021-04-05] MEDS ORDERED: CVS1CAP2 PO (18:33)
[2021-04-05] MEDS ORDERED: FISH1000 PO (18:33)
[2021-04-05] MEDS ORDERED: ACET-897 PO (18:33)
--- NOTE | 2021-04-05 19:05 | IPNPDOC ---
Text Note Date of Service The patient was seen on 04/05/21. NOTE Progress note S: 36 yo female at 35 1/7 weeks presents with EVANS all day today. She took Tylenol this morning. Her legs are swollen. She had a mildly elevated BP in the office yesterday of 142/84. She take Metoprolol 50 mg daily for chronic HTN. She had preeclampsia labs drawn yesterday which were normal. She had an elevated BP at home today of 160/100. 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 O: AVSS NAD Abd: NT, gravid FHT: Cat. I toco: rare ext: tr edema A/P 36 yo at 35 1/7 weeks with labile blood pressure; no evidence of preeclampsia at this time Start course of Betamethasone today repeat dose tomorrow Encouraged patient to stop work at [employer] in order to help BP's Plan induction at 37 weeks. She will have a BPP and Blood pressure check in the office on VS,Fishbone, I+O VS, Fishbone, I+O Vital Signs Date Time Temp Pulse Resp B/P (MAP) Pulse Ox O2 Delivery O2 Flow Rate FiO2 04/05/21 18:15 96 18 152/86 (108) 04/05/21 17:35 98.2 97 GRACIE BLEDSOE MD Apr 05, 2021 19:05
== END 2021-04-05 19:00 | disposition home or self-care (01) ==
LOC: M LDO 17:04
PROVIDERS: ATTEND Specialist
DX: O16.3 Unspecified maternal hypertension, third trimester (principal); Z3A.35 35 weeks gestation of pregnancy
CPT/HCPCS: 59025; G0378; G0463; J0702

== ENCOUNTER 2021-04-10 10:48 | Outpatient (CLI) | payer BC, OTHER ==
[~2021-04-10] VITALS: Ht 167.6 cm; Wt 105.4 kg
[~2021-04-10 10:48] MED LIST changes: +ACET-897 PO; +CVS1CAP2 PO
[2021-04-10 11:40] LABS: HEMATOCRIT 37.9 % (36.0-47.0); HEMOGLOBIN 12.4 g/dl (12.0-15.5); MEAN CORPUSCULAR HGB CONC 32.7 g/dl (32.0-36.5); MEAN CORPUSCULAR VOLUME 88.6 fl (80.0-96.0); PLATELET COUNT, AUTOMATED 292 10^3/uL (150-450); RED BLOOD COUNT 4.28 10^6/uL (4.00-5.40); WHITE BLOOD COUNT 13.5 10^3/uL (4.0-10.0)
[2021-04-10 12:29] LABS: ALBUMIN 2.5 GM/DL (3.2-5.2); ALT/SGPT 24 U/L (12-78); BILIRUBIN,TOTAL 0.2 MG/DL (0.2-1.0); BLOOD UREA NITROGEN 15 MG/DL (7-18); CALCIUM LEVEL 8.8 MG/DL (8.5-10.1); CARBON DIOXIDE LEVEL 22 MEQ/L (21-32); CHLORIDE LEVEL 106 MEQ/L (98-107); CREATININE FOR GFR 0.66 MG/DL (0.55-1.30); GLOMERULAR FILTRATION RATE > 60.0 (>60); GLUCOSE, FASTING 109 MG/DL (70-100); LDH LACTATE DEHYDROGENASE 235 U/L (84-246); POTASSIUM SERUM 4.1 MEQ/L (3.5-5.1); SODIUM LEVEL 136 MEQ/L (136-145); TOTAL PROTEIN 6.2 GM/DL (6.4-8.2); URIC ACID 5.8 MG/DL (2.6-6.0)
[2021-04-10 12:46] LABS: CREATININE,RANDOM URINE 54.9 MG/DL; TOTAL PROTEIN,RANDOM URINE 6.4 MG/DL (0.0-12.0)
--- NOTE | 2021-04-10 13:14 | IPNPDOC ---
Obstetrical Progress Note Date of Service Apr 10, 2021 Subjective 36-year-old -0-1-1 at 35+6 weeks gestation. History of chronic hypertension, AMA, polyhydramnios. She received a full course of corticosteroids last week. She presented today with complaints of a headache this morning. She has had headaches throughout this , and treats EVANS with Esgic. Her home blood pressure readings were elevated. Her headache upon presentation was reported to be 4 out of 10 on the pain scale (and by the time she was being evaluated, she wasn't complaining of a EVANS). She denies visual changes right upper quadrant pain shortness of breath or chest pain. Normotensive with several blood pressure readings. Heart regular rate and rhythm no murmurs gallops rub Lungs clear to auscultation bilaterally no wheezes crackles rales rhonchi Extremities nontender, 2+ edema bilateral, 2+ DTRs Abdomen soft nontender nondistended gravid uterus consistent with EGA uterine fundus nontender EFM: Category 1 [place]: No contractions Labs: Item Value Date Time White Blood Count 13.5 10^3/uL H 04/10/21 1127 Hemoglobin 12.4 g/dl 04/10/21 1127 Hematocrit 37.9 % 04/10/21 1127 Platelet Count 292 10^3/uL 04/10/21 1127 Sodium Level 136 MEQ/L 04/10/21 1127 Uric Acid 5.8 MG/DL 04/10/21 1127 Aspartate Amino Transf (AST/SGOT) 16 U/L 04/10/21 1127 Alanine Aminotransferase (ALT/SGPT) 24 U/L 04/10/21 1127 Blood Urea Nitrogen 15 MG/DL 04/10/21 1127 Creatinine 0.66 MG/DL 04/10/21 1127 Potassium Level 4.1 MEQ/L 04/10/21 1127 Lactate Dehydrogenase 235 U/L 04/10/21 1127 Urine Random Creatinine 54.9 MG/DL 04/10/21 1205 Urine Random Total Protein 6.4 MG/DL 04/10/21 1205 A/P: 36-year-old -0-1-1 at 35+6 weeks gestation. Chronic hypertension. Currently normotensive. Headache has resolved. Clinically, she is not exhibiting severe features. No lab abnormalities/proteinuria. Continue close outpatient observation/surveillance/antepartum testing Current plan is to induce at 37 weeks Precautions reviewed DO MARGRET Hartley JONATHAN R. DO Apr 10, 2021 13:14
== END 2021-04-10 13:15 | disposition home or self-care (01) ==
LOC: M LDO 10:48
PROVIDERS: ATTEND Obstetrics & Gynecology
DX: O40.9 Polyhydramnios, unspecified trimester (principal); O16.3 Unspecified maternal hypertension, third trimester; Z3A.35 35 weeks gestation of pregnancy
CPT/HCPCS: 36415; 59025; 80053; 82570; 83615; 84156; 84550; 85027; G0378; G0463

== ENCOUNTER → 2021-04-14 | Outpatient (CLI) | payer BC, OTHER ==
--- NOTE | 2021-04-14 14:14 | REP ---
INDICATION: BPP GROWTH HYPERTENSION. COMPARISON: 04/07/2021 as well as other prior exams. TECHNIQUE: Real-time sonographic evaluation of the gravid uterus performed. FINDINGS: Estimated gestational age is36 weeks 3 days, EDC 05/09/2021. Today's measurements indicate appropriate growth since the most recent growth study. Presentation: Cephalic Placenta anterior, grade 2, without evidence of placenta previa. heart rate is recorded at 174 beats per minute. Amniotic fluid is subjectively normal. RASHID 15.3, normal 7.6-24.7. Biophysical profile score 8/8. SD ratio umbilical artery 2.26, normal 1.62-3.48. RI 0.56, normal 0.44-0.71. Closed cervical length is measured at 3.5 cm. Biometry chart: BPD: 93 mm, 38 weeks 0 days, 72nd percentile. HC: 332 mm, 37 weeks 6 days, 75th percentile AC: 350 mm, 38 weeks 6 days, 88th percentile Femur length: 74 mm, 38 weeks 0 days, 73rd percentile HC to AC ratio: 0.95, normal range 0.92-1.11. Estimated weight: 08/06/2001g, over 97th percentile. IMPRESSION: Viable single intrauterine gestation as above. <Electronically signed by Riley Powell > 04/14/21 0303
== END ==
LOC: M WHC 09:59
PROVIDERS: ATTEND Obstetrics & Gynecology
DX: O10.913 Unspecified pre-existing hypertension complicating pregnancy, third trimester (principal); Z3A.36 36 weeks gestation of pregnancy

== ENCOUNTER 2021-04-18 07:36 | Inpatient (IN) | payer BC, OTHER ==
[2021-04-18] VITALS (23 sets, daily range): BP systolic 117–145; BP diastolic 60–86
[~2021-04-18] VITALS: Ht 167.6 cm; Wt 106.6 kg
[2021-04-18] MEDS ORDERED: GNP250TA9 PO (08:02)
[2021-04-18] MEDS ORDERED: HOME MED LIST COMPLETE! XX SCH (08:45)
[2021-04-18 08:55] LABS: HEMATOCRIT 36.6 % (36.0-47.0); HEMOGLOBIN 12.2 g/dl (12.0-15.5); MEAN CORPUSCULAR HEMOGLOBIN 29.6 pg (27.0-33.0); MEAN CORPUSCULAR HGB CONC 33.3 g/dl (32.0-36.5); MEAN CORPUSCULAR VOLUME 88.8 fl (80.0-96.0); PLATELET COUNT, AUTOMATED 274 10^3/uL (150-450); RED BLOOD COUNT 4.12 10^6/uL (4.00-5.40); WHITE BLOOD COUNT 13.8 10^3/uL (4.0-10.0)
[2021-04-18] MEDS ORDERED: LIDOCAINE 1% MDV 20ML VIAL INFIL PRN (09:20)
[2021-04-18] MEDS ORDERED: METHYLERGONOVINE MALEATE 0.2 MG/ML VIAL (J2210) IM PRN (09:20)
[2021-04-18] MEDS ORDERED: miSOPROStol 50MCG 1/2 TABLET PO ONE (09:20)
[2021-04-18] MEDS ORDERED: TRANEXAMIC ACID INJection 1,000 MG in NS 100 ML IV PRN (09:20)
[2021-04-18] MEDS ORDERED: CARBOPROST TROMETHAMINE 250 MCG/ML AMP IM PRN (09:20)
[2021-04-18] MEDS ORDERED: OXYTOCIN DRIP 30 UNITS in IV 1 EA IV PRN (09:20)
[2021-04-18] MEDS ORDERED: OXYTOCIN DRIP 30 UNITS in IV 1 EA IV SCH (12:55)
[2021-04-18] MEDS ORDERED: LR 1,000 ML IV SCH (12:55)
--- NOTE | 2021-04-18 13:06 | HPEPDOC ---
Obstetrical History & Physical General Date of Admission Apr 18, 2021 at 07:36 Primary Care Physician: IRENA BOWMAN CNM History of Present Illness Nelida is a 36-year-old female who is a at 37 weeks gestation with an CAS of 05/09/21 based off of her first trimester ultrasound and consistent with her LMP. She initiated care in her first trimester of with WW. Her has been complicated by CHTN controlled with Metoprolol 50 mg HS; AMA, A1GDM, obesity, longstanding GERD, and a history of LEEP. She presents to labor and delivery for an IOL due to multiple medical conditions. She reports active movement and occasional contractions. She denies vaginal bleeding or leak ing of fluid. Chief Complaint: Other (CHTN and gestational diabetes. ) Information Provided By: Patient Age: 36 : 3 Term: 0 Pre-term: 1 Abortions: 1 Livin Care Care: Good Care Dating Final EDC: May 09, 2021 Final EDC by: 1st trimester (US) EGA at Admission: 37 Antepartum Course Diagnos(e)s CHTN AMA A1GDM Height (inches): 66 Pre- weight (lbs.): 201 Admission Weight (lbs.): 232 Change in Weight (lbs.): 31 Past Medical History Past Obstetrical History : Past Obstetrical History: Primgravida Date of Delivery: Dec 30, 2000 Gestation: 35 Type of Delivery: Spontaneous Vaginal Del. 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 (2007), Abnormal Pap (LGSIL), Human papillomavirus(HPV) Past Medical History Medical History obesity CHTN GERD Gestational diabetes endometriosis Surgical History: Diagnostic laparoscopy, Other (LEEP) Family History Significant Family History: Cancer (breast), Diabetes, Heart disease, Hypertension, Vascular disease, Other (rheumatoid arthritis) Social History Marital Status: Family situation: Spouse/partner home Psychosocial History: No pertinent psych hx * Smoker: non-smoker Alcohol: Denies Drugs: denies Abuse Violence Screening Have you been hit/kicked/slapp: No Have you been sexually assault: No Allergies Coded Allergies: Cephalosporins (Verified Allergy, Severe, 04/18/21) Contrast Media (Verified Allergy, Severe, anaphylaxis, 04/18/21) Penicillins (Verified Allergy, Severe, anaphylaxis, 04/18/21) Quinolones (Verified Allergy, Severe, anaphylaxis, 04/18/21) Sulfa (Sulfonamide Antibiotics) (Verified Allergy, Severe, anaphylaxis, 04/18/21) iodine (Verified Allergy, Severe, anaphylaxis, 04/18/21) loratadine (Verified Allergy, Severe, anaphylaxis, 04/18/21) montelukast (Verified Allergy, Severe, anaphylaxis, 04/18/21) moxifloxacin (Verified Allergy, Severe, anaphylaxis, 04/18/21) shellfish derived (Verified Allergy, Severe, anaphylaxis, 04/18/21) amoxicillin (Verified Allergy, Intermediate, hives, 04/18/21) cefaclor (Verified Allergy, Intermediate, hives, 04/18/21) erythromycin base (Verified Allergy, Intermediate, hives, 04/18/21) Medications Scheduled Aspirin (Aspirin) 81 Mg Tab.chew, 1 TAB PO DAILY for pain Calcium Carbonate (Calcium) 600 Mg Tablet, 1,200 MG PO DAILY Magnesium Oxide (Magnesium) 250 Mg Tablet, 1 TAB PO DAILY Metoprolol Succinate (Metoprolol Succinate) 50 Mg Tab.er.24h, 1 TAB PO DAILY [place]-3 Fatty Acids/Fish Oil (Fish Oil 1,000 mg Capsule) 1 Each Capsule, 1 CAP PO DAILY Pantoprazole Sodium (Protonix) 40 Mg Tablet.dr, 40 MG PO BID Sucralfate (Sucralfate) 1 Gm/10 Ml Oral.susp, 10 ML PO BID Scheduled PRN Epinephrine (Epipen 2-Milton) 0.3 Mg/0.3 Ml Inj, 0.3 MG INJ ASDIRECTED PRN for ANAPHYLAXIS Miscellaneous Medications Mv-Mn/Iron/Folic Acid/Herb 190 (Vitamin D3 Complete Caplet) 1 Each Tablet, 1 TAB PO Physical Examination Physical Examination GENERAL: Alert and oriented times three. ABDOMEN: Gravid and non-tender to touch. FETUS: Is vertex (VTX) by sterile vaginal examination (SVE), fetus is vertex (VTX) by Chaim. EFW 7.5 lbs HEART RATE: Regular rate and rhythm. LUNGS: EXTREMITIES: No edema. No clonus. Deep tendon reflexes (DTRs) + . Vital Signs/I&O Vital Signs Date Time Temp Pulse Resp B/P (MAP) Pulse Ox O2 Delivery O2 Flow Rate FiO2 04/18/21 12:11 102 18 122/74 (90) 04/18/21 08:01 98.0 Laboratory Data 24H LABS Laboratory Tests 2 04/18/21 07:46: Serology Scanned Report Hepatitis B Testing 04/18/21 08:28: Nucleated Red Blood Cells % (auto) 0.0, Syphilis Serology NONREACTIVE, Coronavirus (COVID-19)(PCR) NEGATIVE CBC/BMP Laboratory Tests 04/18/21 08:28 Pertinent Laboratoy Data Blood Type: O+ RBC Antibody Screen: Negative HIV: Negative Hepatitis B: Negative Hepatitis C: Negative Rapid Plasma Reagin: Nonreactive Rubella: Immune Chlamydia/Gonorrhea: Negative Group B Streptococcus: Negative Glucose Tolerance Test: 145 Diag/Inter Therapy NIPT-low risk 3 hour glucose testin, 210, 167, 76 Anatomy Ultrasound Ultrasound Date: Apr 14, 2021 Placenta Location: Anterior Normal Anatomy: Yes Placenta Previa: No Estimated Weight (grams): 3502 Steroid Therapy Steroid Therapy: Yes Date #1: Apr 05, 2021 Date #2: Apr 06, 2021 Reason elevated blood pressures Vaginal Examination Dilation: 4 cm Effacement: other (75%) Station: -2 Cervical Consistency: Soft Cervical Position: Anterior Presentation: Cephalic presentation Position: Four quadrants Assessment Heart Rate (FHR): 130 Variability: Moderate Accelerations: Positive Decelerations: None Tocometer Contractions: Yes Frequency: irregular Multi-drug resistant Organism: No history of MDRO Assessment/Plan Assessment IUP at 37 weeks gestation GBS negative Chronic Hypertension A1GDM AMA Obesity Plan Admit to labor and delivery. Plan of care collaborated with Dr. Butt. OOB ad humberto. Diet: regular then clears when IV Pitocin started. . Group B Streptococcus (GBS) negative. Labs and intravenous (IV) per unit protocol. Counseled on Cytotec and IV Pitocin for induction of labor. All patient's prescription she takes on regular bases for CHTN and GERD ordered. Anticipate cervical change and . C-S as appropriate. IRENA BOWMAN CNM Apr 18, 2021 13:06
[2021-04-18] MEDS ORDERED: FIORICET TAB PO PRN (15:00)
[2021-04-18] MEDS ORDERED: KETOROLAC 30 MG/ML 1ML VIAL IV ONE (18:30)
[2021-04-18] MEDS ORDERED: ACETAMINOPHEN TAB 650MG DOSE (2X325MG) PO PRN (19:25)
[2021-04-18] MEDS ORDERED: ANUSOL HC CREAM 30GM TOP PRN (19:25)
[2021-04-18] MEDS ORDERED: DOCUSATE SODIUM 100MG CAPSULE PO PRN (19:25)
[2021-04-18] MEDS ORDERED: IBUPROFEN 600MG TAB PO PRN (19:25)
[2021-04-18] MEDS ORDERED: MEASLES,MUMPS,RUBELLA VACCINE INJ (MMR-II) (90707) SC SCH (19:25)
[2021-04-18] MEDS ORDERED: DIBUCAINE 1% OINTMENT 30GM TOP PRN (19:25)
[2021-04-18] MEDS ORDERED: RHOGAM 300 MCG (1500 IU) INJ (J2790) IM SCH (19:25)
[2021-04-18] MEDS ORDERED: CLINDAMYCIN 900 MG in IV 1 EA IV ONE (19:30)
--- NOTE | 2021-04-18 19:33 | DNPDOC ---
[facility] Delivery Note Delivery Note DATE OF DELIVERY: 04/18/21 at 1744 PREDELIVERY DIAGNOSIS: 37-0/7 weeks' gestation and induction of labor. POST DELIVERY DIAGNOSIS: Delivered. PROCEDURE: Spontaneous vaginal delivery. [employer]: Irena Graham CNM, WHNP ANESTHESIA: none. ESTIMATED BLOOD LOSS: 900 mL. FINDINGS: 7 pounds 11 ounces; 3480 grams, female , Score 9/9, retained placenta with hemorrhage, CHTN, A1GDM, AMA. DELIVERY SUMMARY: Nelida is a 36-year-old female who is now a who was induced due to CHTN and gestational diabetes. She received 1 dose of Cytotec and IV Pitocin for induction of labor. She spontaneously ruptured a scant amount of clear fluid at 1531. Nelida progressed to fully dilated at 1738 and pushed to a living female on her hands and knees in the HUBERT position. The baby delivered spontaneously in one push. The cried spontaneously and was bright between the mother's legs to be [id number]. The cord was clamped after 4 minutes and cut by the FOB. The mom was repositioned and dad did [id number] with . IV Pitocin bolus was started. While waiting for the placenta the perineum was inspected and found to have a second degree perineal laceration that was repaired using Lidocaine 1% and a 3.0 Vicryl. Patient tolerated procedure well. The placenta still didn't delivery even with traction and fundal massage after [address] Butt notified to be available incase of urgent need of assistance or due to the potential to go to the OR for D&C. Reviewed with patient that plan to manually remove placenta. Offered IV Morphine. Patient declined all narcotics and reported she wanted to avoid going into the OR. IV Toradol given to help with manual removal. Attempt at manual removal done and a large amount of bleeding was noted. Estimated total at that time was 600 cc. The placenta was still intact at the fundus. Uterine massage and traction done again and the placenta delivered intact at 1841. Uterine sweep done and no placenta or membranes present and bimanual massage done due to uterine atony. TXA hung and started along with another bag of IV Pitocin. Methergine IM also given as patient's blood pressures have been stable. Reviewed findings with Dr. Butt after patient was stable and due to her many allergies it was decided to do a dose of Gentamicin and Clindamycin. Uterus firm after interventions. Patient able to breastfeed in the room and as an intervention to get placenta delivered. CBC ordered for morning. Patient encouraged not to get OOB without assistance tonight. Both mom and baby are in stable condition. All counts of laps and instruments are correct. Mom plans on naming her Edilma. IRENA GRAHAM CNM Apr 18, 2021 19:33
[2021-04-18] MEDS ORDERED: GENTAMICIN 400 MG in D5W 50 ML IV ONE (20:00)
[2021-04-18] MEDS: SUCRALFATE 1 GM TAB PO SCH (20:43)
[2021-04-18] MEDS: PANTOPRAZOLE 40MG TAB (PROTONIX) PO SCH (20:43)
[2021-04-18] MEDS: ACETAMINOPHEN 500 MG TAB PO PRN (20:55)
[2021-04-18] MEDS: METOPROLOL SUCC (TopROL XL) 50MG **XL** TAB PO SCH (21:21)
[2021-04-19] MEDS: IBUPROFEN 800 MG TAB PO PRN ×3 (00:45→15:35)
[2021-04-19 02:30] VITALS: BP 122/56
[2021-04-19] MEDS: ACETAMINOPHEN 500 MG TAB PO PRN ×3 (04:49→19:47)
[2021-04-19 06:00] VITALS: BP 149/69
[2021-04-19] MEDS: PRENATAL VITAMINS CHEWABLE TABLET PO SCH (07:47)
[2021-04-19] MEDS: SUCRALFATE 1 GM TAB PO SCH ×2 (07:47→18:05)
[2021-04-19] MEDS: PANTOPRAZOLE 40MG TAB (PROTONIX) PO SCH ×2 (07:47→18:25)
[2021-04-19 09:16] LABS: HEMATOCRIT 28.7 % (36.0-47.0); MEAN CORPUSCULAR HEMOGLOBIN 29.7 pg (27.0-33.0); MEAN CORPUSCULAR HGB CONC 33.1 g/dl (32.0-36.5); MEAN CORPUSCULAR VOLUME 89.7 fl (80.0-96.0); PLATELET COUNT, AUTOMATED 242 10^3/uL (150-450); WHITE BLOOD COUNT 16.2 10^3/uL (4.0-10.0)
[2021-04-19 09:29] LABS: HEMOGLOBIN 9.5 g/dl (12.0-15.5)
--- NOTE | 2021-04-19 15:03 | IPNPDOC ---
Progress Note Date of Service: Apr 19, 2021 Day#: 1 Progress Note SUBJECT: Status post complicated by retained placenta/ hemorrhage requiring manual extraction of the placenta, EBL 900 mL. She has been ambulating but feels mildly dizzy and lightheaded. She does not feel this way while at rest in bed. She is voiding spontaneously without issue and tolerating regular diet. Lochia is now decreasing/minimal; significantly decreased since 0300 this AM. Pain is well-controlled. Denies headache, visual changes, right upper quadrant pain, shortness breath or chest pain. OBJECTIVE: VITAL SIGNS: Mild hypertension, afebrile. Alert and oriented times three. Abdomen: Fundus firm at U-2. Soft, NTTP. Laboratory Tests 04/18/21 08:28 04/19/21 08:02 ASSESSMENT: Status post spontaneous vaginal delivery complicated by hemorrhage due to retained placenta. Vitals currently within normal limits, afebrile, hemodynamically stable with no evidence of infection. Mild anemia PLAN: Tylenol and Motrin for pain. FeSO4 and colace added to meds Continue Metoprolol Routine instructions/precautions reviewed. Routine PP visit in 6 weeks in clinic. VS, I&O, 24H, Fishbone Vital Signs/I&O Vital Signs Date Time Temp Pulse Resp B/P (MAP) Pulse Ox O2 Delivery O2 Flow Rate FiO2 04/19/21 06:00 97.7 101 18 149/69 (95) 97 Room Air I&O- Last 24 Hours up to 6 AM 04/19/21 06:00 Intake Total 1190.3 ml Output Total 2200 ml Balance -1009.7 ml Laboratory Data 24H LABS Laboratory Tests 2 04/19/21 08:02: Nucleated Red Blood Cells % (auto) 0.0 CBC/BMP Laboratory Tests 04/19/21 08:02 LYN OSWALD DO Apr 19, 2021 15:03
[2021-04-19 18:00] VITALS: BP 133/77
[2021-04-19] MEDS ORDERED: DOCUSATE SODIUM 100MG CAPSULE PO PRN (19:20)
[2021-04-19 20:20] VITALS: BP 133/77
[2021-04-19] MEDS: FERROUS SULFATE 325MG TAB PO SCH (21:00)
[2021-04-19] MEDS: METOPROLOL SUCC (TopROL XL) 50MG **XL** TAB PO SCH (21:49)
[2021-04-20] MEDS: IBUPROFEN 800 MG TAB PO PRN ×3 (05:53→21:19)
[2021-04-20 06:00] VITALS: BP 138/77
[2021-04-20] MEDS: PANTOPRAZOLE 40MG TAB (PROTONIX) PO SCH ×2 (07:31→17:51)
[2021-04-20] MEDS: SUCRALFATE 1 GM TAB PO SCH ×2 (07:31→17:50)
[2021-04-20] MEDS: PRENATAL VITAMINS CHEWABLE TABLET PO SCH (07:43)
[2021-04-20] MEDS: FERROUS SULFATE 325MG TAB PO SCH ×3 (09:06→21:18)
[2021-04-20] MEDS ORDERED: ACET-683 PO (10:31)
[2021-04-20] MEDS ORDERED: IBUP80TA PO (10:31)
[2021-04-20] MEDS ORDERED: FERR1TAB8 PO (10:31)
[2021-04-20] MEDS ORDERED: COLA100C5 PO (10:31)
[2021-04-20 11:16] LABS: HEMATOCRIT 27.1 % (36.0-47.0); HEMOGLOBIN 8.8 g/dl (12.0-15.5); MEAN CORPUSCULAR HEMOGLOBIN 29.5 pg (27.0-33.0); MEAN CORPUSCULAR HGB CONC 32.5 g/dl (32.0-36.5); MEAN CORPUSCULAR VOLUME 90.9 fl (80.0-96.0); PLATELET COUNT, AUTOMATED 235 10^3/uL (150-450); RED BLOOD COUNT 2.98 10^6/uL (4.00-5.40); WHITE BLOOD COUNT 12.9 10^3/uL (4.0-10.0)
[2021-04-20] MEDS: ACETAMINOPHEN 500 MG TAB PO PRN (15:20)
[2021-04-20 18:00] VITALS: BP 131/77
--- NOTE | 2021-04-20 19:13 | IPNPDOC ---
Progress Note Date of Service: Apr 20, 2021 Day#: 2 Progress Note SUBJECT: Nelida is a 36-year-old female who had a vaginal delivery followed by a retained placenta requiring manipulation to get the placenta out. She also has CHTN and her blood pressures have been appropriate and normotensive. She does report dizziness with ambulation. She is attempting to ambulate today with a wheelchair followed her by her . She reports she is pumping and . Baby is in the NICU due to low blood sugars as patient was also a gestational diabetic. OBJECTIVE: VITAL SIGNS: see below. Alert and oriented times three. Sitting up in bed. Respiratory rate is regular and breathing comfortable on room air. Abdomen: Fundus firm at U. Soft, NTTP. Minimal lochia. Extremities: +1 pitting edema in feet, ankles and legs ASSESSMENT: Day 2 , hemorrhage, CHTN, PLAN: 1. Continue supportive nursing care due to dizziness with ambulation due to hemorrhage. 2. Continue ambulation. 3. Continue iron supplements. 4. Discharge to home tomorrow. VS, I&O, 24H, Fishbone Vital Signs/I&O Vital Signs Date Time Temp Pulse Resp B/P (MAP) Pulse Ox O2 Delivery O2 Flow Rate FiO2 04/20/21 18:00 97.8 84 18 131/77 (95) 97 04/20/21 06:00 Room Air Laboratory Data 24H LABS Laboratory Tests 2 04/20/21 10:57: Nucleated Red Blood Cells % (auto) 0.0 CBC/BMP Laboratory Tests 04/20/21 10:57 IRENA BOWMAN CNM Apr 20, 2021 19:13
[2021-04-20 21:18] VITALS: BP 148/78
[2021-04-20] MEDS: METOPROLOL SUCC (TopROL XL) 50MG **XL** TAB PO SCH (21:18)
[2021-04-21] MEDS: ACETAMINOPHEN 500 MG TAB PO PRN ×2 (03:03→10:03)
[2021-04-21 06:00] VITALS: BP 139/82
[2021-04-21] MEDS: PANTOPRAZOLE 40MG TAB (PROTONIX) PO SCH (07:15)
[2021-04-21] MEDS: SUCRALFATE 1 GM TAB PO SCH (07:15)
[2021-04-21] MEDS: PRENATAL VITAMINS CHEWABLE TABLET PO SCH (09:00)
[2021-04-21] MEDS: IBUPROFEN 800 MG TAB PO PRN (09:03)
[2021-04-21] MEDS: FERROUS SULFATE 325MG TAB PO SCH (09:03)
[2021-04-21 10:50] LABS: HEMATOCRIT 25.7 % (36.0-47.0); HEMOGLOBIN 8.6 g/dl (12.0-15.5); MEAN CORPUSCULAR HGB CONC 33.5 g/dl (32.0-36.5); MEAN CORPUSCULAR VOLUME 89.5 fl (80.0-96.0); PLATELET COUNT, AUTOMATED 212 10^3/uL (150-450); RED BLOOD COUNT 2.87 10^6/uL (4.00-5.40); WHITE BLOOD COUNT 12.2 10^3/uL (4.0-10.0)
[2021-04-22] MEDS ORDERED: CLEO300C2 PO (17:31)
--- NOTE | 2021-05-12 20:47 | DS.PDOC ---
Discharge Summary General Date of Admission Apr 18, 2021 at 07:36 Date of Discharge Apr 21, 2021 Discharge Summary PROCEDURES PERFORMED DURING STAY: Spontaneous vaginal delivery. ADMITTING DIAGNOSES: 1. 37 weeks gestation, chronic hypertension, gestational diabetes. DISCHARGE DIAGNOSES: 1. Delivered. COMPLICATIONS/CHIEF COMPLAINT: Induction.. HISTORY OF PRESENT ILLNESS: 36-year-old -0-1-1 female at 37 weeks gestation presents for labor induction. Indication for delivery less than 39 weeks is chronic hypertension as well as gestational diabetes. HOSPITAL COURSE: 36-year-old -0-1-1 female at 37 weeks gestation presents for labor induction. Indication for delivery less than 39 weeks is chronic hypertension as well as gestational diabetes. She received misoprostol for labor induction. She made adequate progress in labor. She has spontaneous vaginal delivery of a viable . Her immediate course was significant for retained placenta. She had manual extraction of the placenta performed with some hemorrhage. hemoglobin was 8.8 g/dL. Remainder of her course was unremarkable. She had adequate return of bladder bowel function. She was stable for discharge on day #2. DISCHARGE MEDICATIONS: Please see below. ALLERGIES: Please see below. PHYSICAL EXAMINATION ON DISCHARGE: VITAL SIGNS: Please see below. GENERAL: NAD HEENT: NCAT CARDIOVASCULAR EXAMINATION: RRR RESPIRATORY EXAMINATION: CTA ABDOMINAL EXAMINATION: Nontender, fundus firm EXTREMITIES: Nontender LABORATORY DATA: Please see below. PROGNOSIS: Good ACTIVITY: As tolerated. DIET: Regular DISPOSITION: 01 Home, Self-Care. DISCHARGE INSTRUCTIONS: 1. Discharge home 2. Instructions reviewed 3. Follow-up plans DISCHARGE CONDITION: Stable. TIME SPENT ON DISCHARGE: 10 minutes. Discharge Medications Scheduled Calcium Carbonate (Calcium) 600 Mg Tablet, 1,200 MG PO DAILY, (Reported) Clindamycin Hcl (Cleocin HCl) 300 Mg Capsule, 1 CAP PO TID Ferrous Sulfate (Ferrous Sulfate) 325 Mg Tablet, 325 MG PO TID Magnesium Oxide (Magnesium) 250 Mg Tablet, 1 TAB PO DAILY, (Reported) Metoprolol Succinate (Metoprolol Succinate) 50 Mg Tab.er.24h, 1 TAB PO DAILY, (Reported) [place]-3 Fatty Acids/Fish Oil (Fish Oil 1,000 mg Capsule) 1 Each Capsule, 1 CAP PO DAILY, (Reported) Pantoprazole Sodium (Protonix) 40 Mg Tablet.dr, 40 MG PO BID, (Reported) Sucralfate (Sucralfate) 1 Gm/10 Ml Oral.susp, 10 ML PO BID, (Reported) Scheduled PRN Acetaminophen (Acetaminophen) 500 Mg Tablet, 1,000 MG PO Q8HP PRN for PAIN LEVEL 1-5 Docusate Sodium (Colace) 100 Mg Capsule, 100 MG PO BIDP PRN for CONSTIPATION Epinephrine (Epipen 2-[place]) 0.3 Mg/0.3 Ml Inj, 0.3 MG INJ ASDIRECTED PRN for ANAPHYLAXIS, (Reported) Ibuprofen (Ibuprofen) 800 Mg Tablet, 800 MG PO Q8HP PRN for PAIN LEVEL 6-10 Miscellaneous Medications Mv-Mn/Iron/Folic Acid/Herb 190 (Vitamin D3 Complete Caplet) 1 Each Tablet, 1 TAB PO, (Reported) Allergies Coded Allergies: Cephalosporins (Verified Allergy, Severe, 04/18/21) Contrast Media (Verified Allergy, Severe, anaphylaxis, 04/18/21) Penicillins (Verified Allergy, Severe, anaphylaxis, 04/18/21) Quinolones (Verified Allergy, Severe, anaphylaxis, 04/18/21) Sulfa (Sulfonamide Antibiotics) (Verified Allergy, Severe, anaphylaxis, 04/18/21) iodine (Verified Allergy, Severe, anaphylaxis, 04/18/21) loratadine (Verified Allergy, Severe, anaphylaxis, 04/18/21) montelukast (Verified Allergy, Severe, anaphylaxis, 04/18/21) moxifloxacin (Verified Allergy, Severe, anaphylaxis, 04/18/21) shellfish derived (Verified Allergy, Severe, anaphylaxis, 04/18/21) amoxicillin (Verified Allergy, Intermediate, hives, 04/18/21) cefaclor (Verified Allergy, Intermediate, hives, 04/18/21) erythromycin base (Verified Allergy, Intermediate, hives, 04/18/21) GRACIE BLEDSOE MD May 12, 2021 20:47
== END 2021-04-21 15:35 | disposition home or self-care (01) | DRG 541 ==
LOC: M LDI 07:36 → M OBS 20:58
PROVIDERS: ADMIT Advanced Practice Midwife; ATTEND Advanced Practice Midwife
PROC: 10E0XZZ Delivery of Products of Conception, External Approach (ICD-10-PCS; principal; 2021-04-18)
PROC: 3E033VJ Introduction of Other Hormone into Peripheral Vein, Percutaneous Approach (ICD-10-PCS; 2021-04-18)
PROC: 0KQM0ZZ Repair Perineum Muscle, Open Approach (ICD-10-PCS; 2021-04-18)
PROC: 10D17Z9 Manual Extraction of Products of Conception, Retained, Via Natural or Artificial Opening (ICD-10-PCS; 2021-04-18)
DX: O10.02 Pre-existing essential hypertension complicating childbirth (principal); Z3A.37 37 weeks gestation of pregnancy; Z37.0 Single live birth; O24.420 Gestational diabetes mellitus in childbirth, diet controlled; O99.214 Obesity complicating childbirth; E66.9 Obesity, unspecified; O99.62 Diseases of the digestive system complicating childbirth; K21.9 Gastro-esophageal reflux disease without esophagitis; O70.1 Second degree perineal laceration during delivery; O72.0 Third-stage hemorrhage; O72.1 Other immediate postpartum hemorrhage

== ENCOUNTER → 2021-05-11 | Outpatient (CLI) | payer BC, OTHER ==
[~2021-05-11] MED LIST changes: +ACET-683 PO; +CLEO300C2 PO; +COLA100C5 PO; +FERR1TAB8 PO; +IBUP80TA PO
[2021-05-11 15:14] LABS: HEMATOCRIT 40.9 % (36.0-47.0); HEMOGLOBIN 13.1 g/dl (12.0-15.5); MEAN CORPUSCULAR HEMOGLOBIN 28.9 pg (27.0-33.0); MEAN CORPUSCULAR VOLUME 90.1 fl (80.0-96.0); PLATELET COUNT, AUTOMATED 314 10^3/uL (150-450); RED BLOOD COUNT 4.54 10^6/uL (4.00-5.40); WHITE BLOOD COUNT 8.1 10^3/uL (4.0-10.0)
== END ==
LOC: M PLALAB 13:41
PROVIDERS: ATTEND Obstetrics & Gynecology
DX: Z39.2 Encounter for routine postpartum follow-up (principal)

== ENCOUNTER → 2021-05-31 | Outpatient (CLI) | payer BC, OTHER | LOC: M RAD 15:31 | PROVIDERS: ATTEND Nurse Practitioner | DX: R91.1 Solitary pulmonary nodule (principal); Z87.891 Personal history of nicotine dependence ==

== ENCOUNTER → 2021-08-18 | Outpatient (REF) | payer OTHER | LOC: M PLALAB 08:26 | PROVIDERS: ATTEND Advanced Practice Midwife | DX: Z12.4 Encounter for screening for malignant neoplasm of cervix (principal) | CPT/HCPCS: 87624; G0123 ==

== ENCOUNTER → 2021-08-29 | Outpatient (REF) | payer OTHER | LOC: M SFHCWAGY 16:54 | PROVIDERS: ATTEND Advanced Practice Midwife | DX: R30.0 Dysuria (principal) ==

== ENCOUNTER → 2021-08-29 | Outpatient (CLI) | payer BC, OTHER ==
[2021-08-29 17:38] LABS: HEMATOCRIT 37.8 % (36.0-47.0); HEMOGLOBIN 12.9 g/dl (12.0-15.5); MEAN CORPUSCULAR HEMOGLOBIN 30.1 pg (27.0-33.0); MEAN CORPUSCULAR HGB CONC 34.1 g/dl (32.0-36.5); MEAN CORPUSCULAR VOLUME 88.3 fl (80.0-96.0); PLATELET COUNT, AUTOMATED 244 10^3/uL (150-450); RED BLOOD COUNT 4.28 10^6/uL (4.00-5.40); WHITE BLOOD COUNT 8.7 10^3/uL (4.0-10.0)
[2021-08-29 18:14] LABS: ALBUMIN 3.7 GM/DL (3.2-5.2); ALT/SGPT 41 U/L (12-78); BILIRUBIN,TOTAL 0.3 MG/DL (0.2-1.0); BLOOD UREA NITROGEN 14 MG/DL (7-18); CALCIUM LEVEL 8.5 MG/DL (8.5-10.1); CARBON DIOXIDE LEVEL 30 MEQ/L (21-32); CHLORIDE LEVEL 105 MEQ/L (98-107); CHOLESTEROL LEVEL 229 MG/DL (<200); CREATININE FOR GFR 0.84 MG/DL (0.55-1.30); FREE T4 0.91 NG/DL (0.76-1.46); GLOMERULAR FILTRATION RATE > 60.0 (>60); GLUCOSE, FASTING 92 MG/DL (70-100); HDL CHOLESTEROL 51 MG/DL (>40); LDL CHOLESTEROL 134 MG/DL (<100); NON-HDL-C 178 MG/DL; POTASSIUM SERUM 4.3 MEQ/L (3.5-5.1); SODIUM LEVEL 138 MEQ/L (136-145); TOTAL PROTEIN 6.7 GM/DL (6.4-8.2); TRIGLYCERIDES LEVEL 222 MG/DL (<150)
== END ==
LOC: M LAB 16:46
PROVIDERS: ATTEND Internal Medicine Cardiovascular Disease
DX: E78.5 Hyperlipidemia, unspecified (principal); D64.9 Anemia, unspecified; E03.9 Hypothyroidism, unspecified; E11.9 Type 2 diabetes mellitus without complications

== ENCOUNTER → 2021-09-02 | Outpatient (REF) | payer OTHER | LOC: M LAB REF 12:30 | PROVIDERS: ATTEND Ophthalmology | DX: D23.122 Other benign neoplasm of skin of left lower eyelid, including canthus (principal); H01.9 Unspecified inflammation of eyelid ==

== ENCOUNTER → 2021-12-27 | Outpatient (CLI) | payer BC, OTHER ==
[2021-12-27 11:00] LABS: C REACTIVE PROTEIN QUANTITATIV 0.34 MG/DL (0.00-0.30); RHEUMATOID FACTOR QUANT < 10.0 IU/ML (<15.0); URIC ACID 7.4 MG/DL (2.6-6.0)
[2021-12-28 12:09] LABS: ANTINUCLEAR ANTIBODIES DIRECT Negative (Negative)
== END ==
LOC: M PLAIMG 08:11
PROVIDERS: ATTEND Orthopaedic Surgery
DX: M76.60 Achilles tendinitis, unspecified leg (principal); R60.0 Localized edema; M25.572 Pain in left ankle and joints of left foot

== ENCOUNTER → 2021-12-27 | Outpatient (CLI) | payer BC, OTHER | LOC: M PLALAB 08:06 | PROVIDERS: ATTEND Internal Medicine | DX: E27.8 Other specified disorders of adrenal gland (principal); R79.89 Other specified abnormal findings of blood chemistry ==

== ENCOUNTER → 2022-03-31 | Outpatient (CLI) | payer BC, OTHER | LOC: M PLAIMG 07:59 | PROVIDERS: ATTEND Orthopaedic Surgery | DX: M79.661 Pain in right lower leg (principal); R60.0 Localized edema ==

== ENCOUNTER → 2022-06-22 | Outpatient (CLI) | payer BC, OTHER ==
[~2022-06-22] MED LIST changes: -DOXY-350 PO; +DOXY-444 PO
== END ==
LOC: M PLAIMG 12:29
PROVIDERS: ATTEND Orthopaedic Surgery Orthopaedic Surgery of the Spine
DX: M54.50 Low back pain, unspecified (principal); M54.6 Pain in thoracic spine; M50.123 Cervical disc disorder at C6-C7 level with radiculopathy; M50.122 Cervical disc disorder at C5-C6 level with radiculopathy; D18.09 Hemangioma of other sites

== ENCOUNTER → 2022-06-27 | Outpatient (CLI) | payer BC, OTHER | LOC: M RAD 07:57 | PROVIDERS: ATTEND Nurse Practitioner | DX: R91.8 Other nonspecific abnormal finding of lung field (principal); J47.9 Bronchiectasis, uncomplicated ==

== ENCOUNTER 2022-07-10 17:31 | Emergency (ER) | payer BC, OTHER ==
[~2022-07-10] VITALS: Ht 167.6 cm; Wt 100.8 kg
[2022-07-10 18:19] LABS: HEMATOCRIT 43.6 % (36.0-47.0); HEMOGLOBIN 14.9 g/dl (12.0-15.5); MEAN CORPUSCULAR HEMOGLOBIN 30.4 pg (27.0-33.0); MEAN CORPUSCULAR HGB CONC 34.2 g/dl (32.0-36.5); PLATELET COUNT, AUTOMATED 310 10^3/uL (150-450); WHITE BLOOD COUNT 12.3 10^3/uL (4.0-10.0)
[2022-07-10 18:41] LABS: BLOOD UREA NITROGEN 29 MG/DL (9-23); CALCIUM LEVEL 9.9 MG/DL (8.5-10.1); CARBON DIOXIDE LEVEL 27 MMOL/L (20-31); CHLORIDE LEVEL 99 MMOL/L (98-107); GLOMERULAR FILTRATION RATE > 60.0 (>60); GLUCOSE, FASTING 93 MG/DL (60-100); POTASSIUM SERUM 4.3 MMOL/L (3.5-5.1); SODIUM LEVEL 136 MMOL/L (136-145)
[2022-07-10] MEDS ORDERED: FAMOTIDINE 20MG/2ML VIAL IVP ONE (18:50)
[2022-07-10] MEDS ORDERED: methylPREDNISolone 125MG 2ML VIAL IV ONE (18:50)
[2022-07-10 19:05] LABS: ATYPICAL LYMPH 16 % (0-5); EOSINOPHILS 3 % (0-3); LYMPHOCYTES 36 % (16-44); MONOCYTES 3 % (0-5); NEUTROPHILS 39 % (28-66); PLATELET ESTIMATE NORMAL (NORMAL)
[2022-07-10] MEDS ORDERED: PRED20TA PO (20:20)
[2022-07-10 20:36] VITALS: BP 130/74
== END 2022-07-10 20:40 | disposition home or self-care (01) ==
LOC: M ED 17:31
DX: L50.9 Urticaria, unspecified (principal); Z88.1 Allergy status to other antibiotic agents; Z91.041 Radiographic dye allergy status; Z88.0 Allergy status to penicillin; Z88.8 Allergy status to other drugs, medicaments and biological substances; Z88.2 Allergy status to sulfonamides; Z87.892 Personal history of anaphylaxis; Z87.09 Personal history of other diseases of the respiratory system
CPT/HCPCS: 80048; 85025; 93041; 94760; 96374; 96375; 99285; J2930; S0028

== ENCOUNTER → 2022-07-24 | Outpatient (CLI) | payer BC, OTHER ==
[~2022-07-24] MED LIST changes: +PRED20TA PO
== END ==
LOC: M PLAIMG 12:31
PROVIDERS: ATTEND Internal Medicine Cardiovascular Disease
DX: R22.1 Localized swelling, mass and lump, neck (principal)

== ENCOUNTER → 2022-08-16 | Outpatient (CLI) | payer BC, OTHER | LOC: M RAD 07:06 | PROVIDERS: ATTEND Nurse Practitioner | DX: R22.1 Localized swelling, mass and lump, neck (principal); R09.89 Other specified symptoms and signs involving the circulatory and respiratory systems; R13.12 Dysphagia, oropharyngeal phase ==

== ENCOUNTER → 2022-08-25 | Outpatient (CLI) | payer BC, OTHER | LOC: M PLAIMG 11:27 | PROVIDERS: ATTEND Nurse Practitioner | DX: J32.0 Chronic maxillary sinusitis (principal); J34.89 Other specified disorders of nose and nasal sinuses; J34.2 Deviated nasal septum; R43.0 Anosmia ==

== ENCOUNTER → 2022-10-02 | Outpatient (CLI) | payer BC, OTHER ==
[2022-10-02 13:41] LABS: FOLLICLE STIMULATING HORMONE 7.7 mIU/ML; LUTEINIZING HORMONE 6.5 mIU/ML
[2022-10-02 13:42] LABS: PROGESTERONE 0.29 NG/ML
[2022-10-02 13:59] LABS: HEMOGLOBIN A1c 5.3 % (4.0-6.0)
== END ==
LOC: M PLALAB 10:01
PROVIDERS: ATTEND Specialist
DX: Z12.4 Encounter for screening for malignant neoplasm of cervix (principal); N92.6 Irregular menstruation, unspecified
CPT/HCPCS: 36415; 83001; 83002; 83036; 83525; 83527; 84144; 84402; 84403; 87624; G0123

== ENCOUNTER → 2023-01-12 | Outpatient (CLI) | payer BC, OTHER | LOC: M RAD 08:58 | PROVIDERS: ATTEND Surgery | DX: D17.1 Benign lipomatous neoplasm of skin and subcutaneous tissue of trunk (principal) ==

== ENCOUNTER → 2023-04-10 | Outpatient (CLI) | payer BC, OTHER | LOC: M RAD 09:35 | PROVIDERS: ATTEND Otolaryngology | DX: R91.1 Solitary pulmonary nodule (principal) ==

== ENCOUNTER → 2023-07-11 | Outpatient (CLI) | payer BC, OTHER | LOC: M RAD 12:51 | PROVIDERS: ATTEND Otolaryngology Otolaryngology/Facial Plastic Surgery | DX: R22.1 Localized swelling, mass and lump, neck (principal) ==

== ENCOUNTER → 2023-07-24 | Outpatient (CLI) | payer BC, OTHER ==
[~2023-07-24] MED LIST changes: +PROHANCE 279.3MG/ML 15ML VIAL As Ordered ONE; +PROHANCE 279.3MG/ML 5ML VIAL As Ordered ONE
== END ==
LOC: M PLAIMG 07-23 09:00 → M RAD 13:49
PROVIDERS: ATTEND Otolaryngology Otolaryngology/Facial Plastic Surgery
DX: R22.1 Localized swelling, mass and lump, neck (principal)
CPT/HCPCS: 70543; A9576

== ENCOUNTER → 2023-08-02 | Outpatient (CLI) | payer BC ==
[~2023-08-02] MED LIST changes: -PROHANCE 279.3MG/ML 15ML VIAL As Ordered ONE
== END ==
LOC: M RAD 09:36
PROVIDERS: ATTEND Student in an Organized Health Care Education/Training Program
DX: R79.89 Other specified abnormal findings of blood chemistry (principal); R51.9 Headache, unspecified
CPT/HCPCS: 70553; A9576

== ENCOUNTER → 2023-09-14 | Outpatient (CLI) | payer BC ==
[~2023-09-14] MED LIST changes: -PROHANCE 279.3MG/ML 5ML VIAL As Ordered ONE
== END ==
LOC: M PLAIMG 13:21
PROVIDERS: ATTEND Nurse Practitioner
DX: R91.1 Solitary pulmonary nodule (principal); R06.00 Dyspnea, unspecified; Z80.1 Family history of malignant neoplasm of trachea, bronchus and lung

== ENCOUNTER → 2024-06-18 | Outpatient (REF) | payer BC, OTHER ==
[~2024-06-18] MED LIST changes: +DOXY-440 PO; -DOXY-444 PO; +ONDA-282 PO; -ONDA4TAB6 PO
[2024-06-20 13:26] LABS: HPV APTIMA Not Detected (Not Detected)
== END ==
LOC: M SFHCWAGY 12:49
PROVIDERS: ATTEND Specialist
DX: Z01.419 Encounter for gynecological examination (general) (routine) without abnormal findings (principal)
CPT/HCPCS: 87624; G0123

== ENCOUNTER → 2024-09-16 | Outpatient (CLI) | payer OTHER ==
[2024-09-16 10:44] LABS: BASO # 0.1 10^3/uL (0.0-0.2); BASO % 0.8 % (0.0-1.0); EOS # 0.2 10^3/uL (0.0-0.5); EOS % 2.2 % (0.0-3.0); HEMATOCRIT 41.6 % (36.0-47.0); HEMOGLOBIN 14.3 g/dl (12.0-15.5); LYMPH # 2.4 10^3/uL (1.5-5.0); LYMPH % 30.4 % (24.0-44.0); MEAN CORPUSCULAR HEMOGLOBIN 30.4 pg (27.0-33.0); MEAN CORPUSCULAR HGB CONC 34.4 g/dl (32.0-36.5); MEAN CORPUSCULAR VOLUME 88.3 fl (80.0-96.0); MONO # 0.6 10^3/uL (0.0-0.8); MONO % 7.4 % (2.0-8.0); NEUTROPHILS # 4.6 10^3/uL (1.5-8.5); NEUTROPHILS % 59.1 % (36.0-66.0); PLATELET COUNT, AUTOMATED 257 10^3/uL (150-450); RED BLOOD COUNT 4.71 10^6/uL (4.00-5.40); WHITE BLOOD COUNT 7.7 10^3/uL (4.0-10.0)
[2024-09-16 10:55] LABS: ALBUMIN 3.8 G/DL (3.2-5.2); ALKALINE PHOSPHATASE 62 U/L (35-104); ALT/SGPT 22 U/L (7.0-40); AST/SGOT 13 U/L (<34); BILIRUBIN,TOTAL 0.4 MG/DL (0.3-1.2); BLOOD UREA NITROGEN 19 MG/DL (9-23); CALCIUM LEVEL 9.3 MG/DL (8.5-10.1); CARBON DIOXIDE LEVEL 27 MMOL/L (20-31); CHLORIDE LEVEL 106 MMOL/L (98-107); CHOLESTEROL LEVEL 185 MG/DL (<200); CHOLESTEROL RISK RATIO 3.47 (<5); CREATININE FOR GFR 0.83 MG/DL (0.55-1.30); FREE T4 1.26 NG/DL (0.89-1.76); GLOMERULAR FILTRATION RATE > 90.0 (>58); GLUCOSE, FASTING 89 MG/DL (60-100); HDL CHOLESTEROL 53.2 MG/DL (>40); IRON (FE) 67 UG/DL (50-170); NON-HDL-C 131.8 MG/DL; POTASSIUM SERUM 4.4 MMOL/L (3.5-5.1); SODIUM LEVEL 143 MMOL/L (136-145); THYROID STIMULATING HORMONE 2.217 uIU/ML (0.55-4.78); TOTAL PROTEIN 6.6 G/DL (5.7-8.2); TRIGLYCERIDES LEVEL 84 MG/DL (<150)
[2024-09-16 10:56] LABS: FERRITIN 18.8 NG/ML (7.3-270.7)
[2024-09-16 10:57] LABS: FOLLICLE STIMULATING HORMONE 6.7 mIU/ML
[2024-09-16 10:58] LABS: LUTEINIZING HORMONE 12.7 mIU/ML
[2024-09-16 11:36] LABS: HEMOGLOBIN A1c 4.5 % (4.0-6.0)
[2024-09-18 09:27] LABS: INSULIN LEVEL 13.5 uIU/mL (<=18.4)
== END ==
LOC: M PLALAB 08:18
PROVIDERS: ATTEND Family Medicine
DX: D50.9 Iron deficiency anemia, unspecified (principal)

== ENCOUNTER → 2024-10-03 | Outpatient (CLI) | payer OTHER | LOC: M RAD 07:25 | PROVIDERS: ATTEND Nurse Practitioner | DX: Z80.1 Family history of malignant neoplasm of trachea, bronchus and lung (principal) ==

== ENCOUNTER → 2025-01-05 | Outpatient (CLI) | payer OTHER ==
[2025-01-05 17:30] LABS: PLATELET COUNT, AUTOMATED 248 10^3/uL (150-450)
[2025-01-05 17:58] LABS: ALT/SGPT 31.0 U/L (7.0-40); AST/SGOT 20.0 U/L (<34); CALCIUM LEVEL 9.5 MG/DL (8.5-10.1); CARBON DIOXIDE LEVEL 26.0 MMOL/L (20-31); CHLORIDE LEVEL 102.0 MMOL/L (98-107); CREATININE FOR GFR 0.94 MG/DL (0.55-1.30); GLOMERULAR FILTRATION RATE 78.2 (>58); MAGNESIUM LEVEL 1.9 MG/DL (1.8-2.4); POTASSIUM SERUM 4.1 MMOL/L (3.5-5.1); SODIUM LEVEL 141.0 MMOL/L (136-145)
[2025-01-05 18:01] LABS: TOTAL 25(OH) VITAMIN D 132.3 NG/ML (20.0-100.0)
[2025-01-05 18:02] LABS: VITAMIN B12 LEVEL 904.0 PG/ML (211-911)
[2025-01-05 18:03] LABS: IRON (FE) 114.0 UG/DL (50-170); PERCENT SATURATION 35.4 % (13.2-45.0)
== END ==
LOC: M PLALAB 16:32
PROVIDERS: ATTEND Nurse Practitioner Family
DX: K59.00 Constipation, unspecified (principal); K21.9 Gastro-esophageal reflux disease without esophagitis; F45.8 Other somatoform disorders; E56.9 Vitamin deficiency, unspecified